=== PATIENT | female | born 1990 | race Caucasian/White ===

== ENCOUNTER → 2025-03-14 | Outpatient (CLI) | payer SELFPAY ==
--- NOTE | 2025-03-14 12:23 | US_ITS ---
PROCEDURE: OB LIMITED WITH BIOMETRICS 03/14/2025 REASON FOR EXAM: GROWTH TECHNIQUE: High resolution obstetric ultrasound performed using a 2D transducer. 3D imaging was also performed and reviewed. Standard views obtained, including biometry, anatomy survey, and Doppler studies. COMPARISON: None FINDINGS Number: 1 Position: Cephalic Placental Position: Anterior Placental Abnormalities: None Cervix to placenta distance measures 5.5 cm. DIMENSIONS: Biparietal Diameter: 8.6 cm/34 weeks 3 days +/-22 days/97th percentile Head Circumference: 31.4 cm/35 weeks 2 days +/-21 days/93rd percentile Abdominal Circumference: 32.0 cm/36 weeks 0 days +/-21 days/100 percentile Femur Length: 6.2 cm/32 weeks 1 day +/-21 days/43rd percentile ESTIMATED WEIGHT: 2511 +/-377 g ESTIMATED WEIGHT PERCENTILE (24+ weeks): 98.93% ESTIMATED GESTATIONAL AGE: Baseline: 31 weeks 6 days By Ultrasound: 34 weeks 5 days ESTIMATED DATE OF DELIVERY: Baseline: 05/10/2025 By Ultrasound: 04/20/2025 BIOPHYSICAL ASSESSMENT: Amniotic Fluid Index: 25.0 Cm (8-24 cm normal range) Heart rate: 138-140 beats per minute MATERNAL ANATOMY: Adnexa: Neither maternal ovary is successfully identified. Cervical Length (if measured): 4.1 cm US/OB Limited With Biometrics IMPRESSION: Single living intrauterine fetus, large for gestational age with estimated feta l weight in the 99th percentile. This finding could be overestimated given that additional biometry measurements are al so elevated. However, in the setting of a slightly elevated amniotic fluid index at 25 cm, findings are concerning for ma crosomia. Recommend comparison with prior exams if available, and close clinical and imaging follow-up. Reading Location: [facility]
== END | disposition home or self-care (01) ==
PROVIDERS: Referring Provider Obstetrics & Gynecology; Visit Provider Obstetrics & Gynecology
DX: O09.529 Supervision of elderly multigravida, unspecified trimester (principal); Z3A.00 Weeks of gestation of pregnancy not specified
CPT/HCPCS: 76816

== ENCOUNTER → 2025-03-22 | Outpatient (CLI) | payer SELFPAY ==
[2025-03-22 12:24] LABS: Absolute Lymphocyte Count 1.81 X10^3/uL (0.83-4.51); Absolute Neutrophil Count 3.4 X10^3/uL (2.0-7.7); Basophil# 0.01 X10^3/uL; Basophil% 0.2 % (0-1); Eosinophil# 0.02 X10^3/uL; Eosinophils% 0.4 % (0-5); Hematocrit 36.5 % (37-47); Hemoglobin 12.5 g/dL (12.0-15.0); Lymphocyte # 1.81 X10^3/ul (0.83-4.51); Lymphocyte % 32.6 % (19-41); Mean Corp Hgb Conc 34.2 g/dL (32-36); Mean Corpuscular Volume 93.4 fL (81-99); Mean Platelet Vol. 9.9 fl (6.2-12.0); Monocyte# 0.32 X10^3/uL; Monocyte% 5.8 % (0-10); NRBC Flagged by Analyzer 0 % (0-5); Neutrophil # 3.37 X10^3/uL (2.7-7.7); Neutrophil % 60.6 % (47-70); Platelet Count 201 K/mm3 (150-450); RBC Distribution Width CV 13.9 % (11.6-14.6); RBC Distribution Width SD 46.5 fl (35.1-43.9); Red Blood Count 3.91 M/mm3 (4.2-5.4); White Blood Count 5.6 K/mm3 (4.4-11.0)
[2025-03-22 12:53] LABS: HIV Nonreactive (Nonreactive); Hepatitis B Surface Antigen Nonreactive (Nonreactive); Hepatitis C Antibody Nonreactive (Nonreactive); Rubella IgG REAC (Nonreactive); Syphilis Antibodies Nonreactive (Nonreactive)
[2025-03-22 21:47] LABS: Hemoglobin A1c 4.7 % (<=5.6)
== END | disposition home or self-care (01) ==
PROVIDERS: Referring Provider Advanced Practice Midwife; Visit Provider Advanced Practice Midwife
DX: Z34.90 Encounter for supervision of normal pregnancy, unspecified, unspecified trimester (principal); Z86.32 Personal history of gestational diabetes
CPT/HCPCS: 36415; 83036; 85025; 86703; 86762; 86780; 86803; 86850; 86900; 86901; 87086; 87088; 87340

== ENCOUNTER → 2025-04-13 | Outpatient (CLI) | payer SELFPAY | END | disposition home or self-care (01) | LOC: OPUS 08:40 | PROVIDERS: Referring Provider Obstetrics & Gynecology; Visit Provider Obstetrics & Gynecology | DX: O24.419 Gestational diabetes mellitus in pregnancy, unspecified control (principal); Z3A.00 Weeks of gestation of pregnancy not specified | CPT/HCPCS: 76816; 87081 ==

== ENCOUNTER 2025-04-28 01:26 | Inpatient (IN) | payer SELFPAY ==
[2025-04-28] VITALS (69 sets, daily range): BP systolic 92–133; BP diastolic 50–75; PULSE 46–81; RESP 16; TEMP 36–37.1; O2SAT 84–100; BMI 26.2
--- OUTSIDE RECORDS SUMMARY | 2025-04-28 01:06 | XMS RPT_ITS | CCD ---
Author Organization [facility] Care Team Providers Care Fusion Juncture Grinder Name Role Phone Clint Donisterri Ann Unavailable Marlin Springer Primary Care Provider [phone] Marlin Springer Unavailable Carlos Begum Admitting Unavailable Carlos Begum Attending Unavailable PHYSICIAN, NONE Primary Care Physician Unavailab HODA Benavidez Attending U navailable MARLIN SPRINGER Primary Care Unavailabl e Care Physician, No Primary Primary Care Provider Unavailable Sandra Sorensen RN Attending Provider UnavailDr. Julieta Pool DO Attending Provider Dr. Julieta Huffman DO Referring Provider Care Physician, No Primary Referring Provider Un available Lauren Clinton CNM Attending Provider Lauren Clinton CNM Referring Provider [phone] Dr. Rhonda Fleming MD Attending Provider Ana Jimenez Attending Provider Dr. Rhonda Fleming MD Referring Provider Rhonda Fleming Referring Unavailable Care Physician, No Primary Primary Care Unava ilable Rhonda Fleming Attending Unavailable Care Physician, No Primary Referring Unava ilable Care Physician, No Primary Primary Care Unava ilable Ana Boss NP Attending Unavailable Care Physician, No Primary Referring Unava ilable Care Physician, No Primary Primary Care Unava ilable Julieta Huffman Attending UnavailLauren Garcia Attending Unavailable Care Physician, No Primary Primary Care Unava ilable Care Physician, No Primary Referring Unava ilable Sandra Sorensen Attending Unavailable Care Physician, No Primary Primary Care Unava ilable Care Physician, No Primary Referring Unava ilable Lauren Clinton Attending Unavailable Care Physician, No Primary Primary Care Unava ilable Care Physician, No Primary Referring Unava ilable Care Physician, No Primary Primary Care Unava ilable Rhonda Fleming Attending Unavailable Julieta Huffman Attending Unavailabl e Julieta Huffman Referring Unavailabl e Care Physician, No Primary Primary Care Unava ilable Lauren Clinton Attending Unavailable Lauren Clinton Referring Unavailable Care Physician, No Primary Primary Care Unava ilable Medications Current Medications Medication Drug Class(es) Dates Sig (Normalized) Sig (Original) acetaminophen 325 mg oral capsule (1 source) Start: 11-03-2019 take 1 capsule by mouth every six hours Tylenol 325 mg oral capsule Dose : 650 mg =, Oral, q6h, 0 Refill(s) Start Date: 11/03/19 Status: Ordered docosahexaenoic acid 200 mg oral capsule (9 sources) Start: 03-11-2025 Docosahexaenoic Acid ( Dha) 200 mg capsule Active mg PO March 11, 2025 12:00am ferrous sulfate 325 mg oral tablet (9 sources) Start: 03-11-2025 take 1 tablet by mouth once daily Ferrous Sulfate (Feosol) 325 mg (65 mg iron) tablet Active 325 mg PO daily March 11, 2025 12:00am ibuprofen 600 mg oral tablet (1 source) Nonsteroidal Anti-inflammatory Drug Start: 11-03-2019 Motrin Dose : 600 mg = 1 tab(s), Oral, q6h, 0 Refill(s) Start Date: 11/03/19 Status: Ordered metFORMIN hydrochloride 500 mg oral tablet (4 sources) Biguanide Start: 04-13-2025 take 1 tablet by mouth twice daily Metformin 500 mg tablet Active 500 mg PO TWICE A DAY 60 2 April 13, 2025 12:00am Multivitamins (1 source) Start: 11-02-2019 take 1 tablet by mouth twice daily Multivitamins Dose = 1 tab(s), Oral, BID, 0 Refill(s) Start Date: 11/02/19 Status: Ordered Completed/Discontinued Medications Medication Drug Class(es) Dates Sig (Normalized) Sig (Original) omeprazole 40 mg delayed release oral capsule (2 sources) Proton Pump Inhibitor Start: 12-15-2017 End: 12-15-2018 take 1 capsule by mouth once daily omeprazole (PRILOSEC) 40 MG capsule Indications: Laryngeal pachyderma , Gastroesophageal reflux disease, esophagitis presence not specified Take 1 (one) capsule (40 mg total) by mouth daily. 30 capsule 11 12/15/2017 11/19/2018 Discontinued raNITIdine 300 mg oral tablet (2 sources) Histamine-2 Receptor Antagonist Start: 12-15-2017 End: 12-15-2018 take 1 tablet by mouth once daily ranitidine (ZANTAC) 300 MG tablet Indications: Laryngeal pachyderma , Gastroesophageal reflux disease, esophagitis presence not specified Take 1 (one) tablet (300 mg total) by mouth nightly. 30 tablet 11 12/15/2017 11/19/2018 Discontinued Problems Problem Classification Problem Date Documented Date Episodic/Chronic Anal and rectal conditions (3 sources) Rectal polyp; Translations: [Anal polyp] Episodic Diabetes or abnormal glucose tolerance complicating ; childbirth; or the puerperium (20 sources) History of gestational diabetes mellitus; Translations: [Personal history of gestational diabetes] Onset: 04-21-2025 03-14-2025 Episodic Comment on above: diet controlled. con tinue to monitor growth US 36 weeks diet controlled. con tinue to monitor growth US 36 weeks. metformin started 04/13/25- patient declines to come in twice a week for nsts. will do only once a week Other complications of ; puerperium affecting management of mother (20 sources) Large for gestation age fetus 03-15-2025 Episodic Comment on above: EFW 98%, AC 100% 32 wk Other complications of (1 source) Supervision of elderly multigravida, unspecified trimester; Translations: [Supervision of elderly multigravida, unspecified trimester] Onset: 03-17-2025 Episodic Other and delivery including normal (20 sources) ; Translations: [Normal ] Onset: 07-09-2021 11-06-2021 Episodic Comment on above: , CALEB 05/10/25, PC: Sarah Sal Andrea, Emily & Sade, : Reynaldo Burger [Co-Care w/Malena Coop er, RON @ 31wks]No genetic/carrier testing done PRR ([facility]ing on chan soon[facility]) , CALEB 05/10/25, PC: Sarah Sal, Dominic, Elizabeth & Sade, : Reynaldo uBrger Neg gbs PRR (waiting on chan soon-[facility]) , CALEB 05/10/25, PC: Sarah Sal Andrea, Elizabeth & Sade, : Reynaldo Burger Polyhydramnios and other problems of amniotic cavity (20 sources) Polyhydramnios; Translations: [Polyhydramnios, unspecified trimester, not applicable or unspecified] Onset: 04-22-2025 03-22-2025 Episodic Comment on above: WEI 25 WEI 25 weekly nsts u ntil delivery, deliver 39 weeks Residual codes; unclassified (9 sources) History of eye AND/OR adnexa surgery; Translations: [Other specified postprocedural states] 03-11-2025 Episodic Residual codes; unclassified (1 source) 37 weeks gestation of ; Translations: [37 weeks gestation of ] Onset: 04-22-2025 Episodic Residual codes; unclassified (1 source) 34 weeks gestation of ; Translations: [34 weeks gestation of ] Onset: 04-01-2025 Episodic Residual codes; unclassified (1 source) 33 weeks gestation of ; Translations: [33 weeks gestation of ] Onset: 03-22-2025 Episodic Results Test Name Value Interpretation Reference Range Facility Laboratory - Chemistry and C hemistry - challengeOrdered By: Lauren Clinton on 04-22-2025 Glucose Ql (U) Negative [facility] Laboratory - UrinalysisOrder ed By: Lauren Clinton on 04-22-2025 Protein Ql (U) Negative [facility] Pressure Controller Office Visit Reporton 04-22-2025 Pressure Controller Office Visit Report [facility] [address] [place] [address], [address] [place] [address] OFFICE VISIT Date of Service: 04/22/25 MR#: [id number] Acct: [id number] Name: LAURIE RIGGS Rep #: [id number] : 1990 Provider: VICKY Sanders ams Age/Sex: 35/F [place] [facility] [place] Status: Signed Intake Vital Signs 04/01/25 16:00 04/13/25 13:00 04/22/25 13:38 Height 5 ft 3 in 5 ft 3 in 5 ft 3 in Weight: 147 lb 6 oz 149 lb 2 oz BMI 26.1 26.4 BP 107/65 123/67 H Intake Visit Reasons: 37wk ob/nst Chief Complaint: 37wk ob/nst Gas Meter Checker Required: No Is patient in pain?: No Allergies No Known Allergies Allergy (Verified 04/22/25 13:36) Medications ???Medication ???Instructions ???Recorded ???Confirmed ???Type docosahexaenoic acid 200 mg mg PO 03/11/25 04/22/25 History capsule ( DHA) ferrous sulfate 325 mg (65 mg 325 mg PO QDAY 03/11/25 04/22/25 H istory iron) tablet (Feosol) metformin 500 mg tablet 500 mg PO BID #60 tabs 04/13/25 Rx Last Menstrual Period: 08/03/24 : No PFSH PFSH Surgical History H/O eye surgery History of tonsillectomy and adenoidectomy Social History adopted: No household members: spouse and children housing: house number of children: 5 current occupation: [employer] current occupational exposures/hazards: No pets and animals: Yes pets and animals: dog(s) and farm animals history of recent travel: No sexually active: No Smoking Status: Never smoker second hand exposure: No alcohol intake: never substance use type: does not use well-balanced diet: daily or most days caffeine: No eating out: rarely or never during the past year weight has: remained stable what type of physical activity do you participate in: walking frequency: 5-6 times per week duration: 45-60 minutes/day milady/sikh: Presybeterian seatbelt use: sometimes do you feel safe at home: Yes additional social history: : Reynaldo Burger - Jhon History 6 Elective abortions Hx Para 5 Spontaneous abortions 0 Hx # Term Pregnancies 5 Ectopic pregnancies Hx # Pregnancies Multiple births # of living children 5 Past Pregnancies Del. Date Name GA/Weeks Outcome Route Bth Weight Gen Labor Lgth Anesthesia Del Locatn Provider FOB 10/03/12 Doron 40 live - full term 8lbs 6oz Male none Home Reynaldo Burger 12/20/13 Sarah 40 live - full term 7lbs 7oz Female none Home Reynaldo Burger 12/15/16 Dominic 40 live - full term 8lbs 8oz Female none Tino Or yaakov Burger 11/02/19 Elizabeth 40 live - full term 7lbs 7oz Female none Tino Or damaso Burger 04/04/22 Sade 40 live - full term 7lbs 14oz Female none Home Reynaldo Burger Delivery Date: 11/02/19 Last Updated by: Sandra Sorensen, preventive medicine physician instructed her to watch her BS HPI 37wk ob/nst Details: LAURIE RIGGS is a 35 year old who presents for routine OB visit. OB Visit CALEB Calculator Estimated Delivery Date Method Current WG Current Estimate 05/10/25 LMP (Certain) 37w 3d Other Estimates 05/10/25 Manual 37w 3d Expected Delivery Route/Plan Labor Preferences- CB/BF classes: [] labor support person: [] labor intervention preferences: [] pain management options preferred: [] cut cord/dad catch: [] : [] PP control planned: [] discussed possible routes of delivery and associated risks: [] special requests: [] Specific Issue/Plans Covid status: [] Flu vaccine: [] Tdap vaccine: [] Rhogam: [] LARC form signed: [] Problem list reviewed and updated with the most current plan of care details and appropriate orders placed. Relevant counseling for the gestational age provided. Continue routine care and follow up unless otherwise noted in visit notes/problem list details Initial Weight: Not Recorded Date -???-???-???-???-???-? ??-???-???-???-???-??? -???- EGA Weight BP Urine Prot -???-???-???-???-???-? ??-???-???-???-???-??? -???- Glucose FHR FuHt Pres Dilation -???-???-???-???-???-? ??-???-???-???-???-??? -???- Effaced St Visit Note 03/22/25 -???-???-???-???-???-? ??-???-???-???-???-??? -???- 33w 0d 153 lb 4 oz 115/69 Negative -???-???-???-???-???-? ??-???-???-???-???-??? -???- Negative 140 36 -???-???-???-???-???-? ??-???-???-???-???-??? -???- KW- Transfer of care from Malena Wiley. Growth US done and EFW 100%. Had regular menses and was certain of LMP-did not have an early US. NOB labs today. KW- Transfer of care from Malena Wade gudino. Growth US done and EFW 100%. Had regular menses and was certain of LMP-did not have an early US. NOB labs today. Has been trac (more content not included)... Normal [facility] Rule out Beta Strep (Grp. B) on 04-15-2025 JOSE Group B Beta Streptococcus is not isolated. Normal [facility] Comment on above: Performed By: #### M [id number] ####[facility] [id number] [place], [place], [id number] Laboratory - Chemistry and C hemistry - challengeOrdered By: Julieta Chavez on 04-13-2025 Glucose Ql (U) Negative [facility] Laboratory - UrinalysisOrder ed By: Julieta Chavez on 04-13-2025 Protein Ql (U) Negative [facility] OB Limited With Biometricson 04-13-2025 OB Limited With Biometrics [facility] [address] [place], [place] [id number] OB Limited With Biometrics MR#: [id number] Acct: [id number] Name: LAURIE RIGGS Rep #: [id number] : 1990 F 35 From: Satinder valdez MD PCP: Care Physician,No Primary Status: REG CLI Study: OB Limited With Biometrics Date of Exam: 04/13 Exam# [id number] Ordering Dr: Rhonda Fleming PROCEDURE: OB LIMITED WITH BIOMETRICS 04/13/2025 REASON FOR EXAM: GROWTH TECHNIQUE: OB LIMITED WITH BIOMETRICS COMPARISON: Prior study dated March 14, 2025. FINDINGS LMP: August 03, 2024. Number: 1 Position: Vertex Placental Position: Anterior and not low-lying. Placental Abnormalities: No evidence of previa. DIMENSIONS: Biparietal Diameter: 8.92 cm: 36 weeks and 1 day: 58 percentile/ Head Circumference: 32.51 cm: 36 weeks and 6 days: 36 percentile/ Abdominal Circumference: 33.82 cm: 37 weeks and 5 days: 93rd percentile/ Femur Length: 7.11 cm: 36 weeks and 3 days: 53 percentile/ ESTIMATED WEIGHT: 3152 g plus/-473 g ESTIMATED WEIGHT PERCENTILE (24+ weeks): 79 ESTIMATED GESTATIONAL AGE: Baseline: 36 weeks and 1 day By Ultrasound: 37 weeks and 1 day ESTIMATED DATE OF DELIVERY: Baseline: May 10, 2025 By Ultrasound: May 03, 2025 BIOPHYSICAL ASSESSMENT: Amniotic Fluid Volume: 6 cm Amniotic Fluid Index: 21.2 (8-24 cm normal range) Cardiac Motion: 147 beats per minute (average) Trunk and Limb Motion: Present. MATERNAL ANATOMY: Adnexa: Neither maternal ovary is successfully identified. US/OB Limited With Biometrics IMPRESSION: Single live intrauterine gestation with a mean gestational age of 37 weeks and 1 day. Reading Location: [place] [address] CC: Dr. Rhonda Fleming MD; No Primary Care Physician Hook Up: Signed Normal [facility] Pressure Controller Office Visit Reporton 04-13-2025 Pressure Controller Office Visit Report [facility] [address], [address] [place] [address] OFFICE VISIT Date of Service: 04/13/25 MR#: [id number] Acct: [id number] Name: LAURIE RIGGS Rep #: [id number] : 1990 Provider: Dr. Julieta Barrett DO Age/Sex: 35/F [place] [facility] Status: Signed Intake Vital Signs 04/01/25 16:00 04/07/25 13:40 04/13/25 13:00 Height 5 ft 3 in 5 ft 3 in 5 ft 3 in Weight: 147 lb 6 oz BMI 26.1 BP 107/65 Intake Visit Reasons: 36wk ob/nst Gas Meter Checker Required: No Is patient in pain?: No Allergies No Known Allergies Allergy (Verified 04/13/25 13:01) Medications ???Medication ???Instructions ???Recorded ???Confirmed ???Type docosahexaenoic acid 200 mg mg PO 03/11/25 04/13/25 History capsule ( DHA) ferrous sulfate 325 mg (65 mg 325 mg PO QDAY 03/11/25 04/13/25 H istory iron) tablet (Feosol) metformin 500 mg tablet 500 mg PO BID #60 tabs 04/13/25 Rx Last Menstrual Period: 08/03/24 Zika: Zika virus screening: Negative : No PFSH PFSH Surgical History H/O eye surgery History of tonsillectomy and adenoidectomy Social History adopted: No household members: spouse and children housing: house number of children: 5 current occupation: [employer] current occupational exposures/hazards: No pets and animals: Yes pets and animals: dog(s) and farm animals history of recent travel: No sexually active: No Smoking Status: Never smoker second hand exposure: No alcohol intake: never substance use type: does not use well-balanced diet: daily or most days caffeine: No eating out: rarely or never during the past year weight has: remained stable what type of physical activity do you participate in: walking frequency: 5-6 times per week duration: 45-60 minutes/day milady/sikh: Presybeterian seatbelt use: sometimes do you feel safe at home: Yes additional social history: : Reynaldo Burger - Farm History 6 Elective abortions Hx Para 5 Spontaneous abortions 0 Hx # Term Pregnancies 5 Ectopic pregnancies Hx # Pregnancies Multiple births # of living children 5 Past Pregnancies Del. Date Name GA/Weeks Outcome Route Bth Weight Gen Labor Lgth Anesthesia Del Locatn Provider FOB 10/03/12 Doron 40 live - full term 8lbs 6oz Male none Home Reynaldo Burger 12/20/13 Sarah 40 live - full term 7lbs 7oz Female none Home Reynaldo Burger 12/15/16 Dominic 40 live - full term 8lbs 8oz Female none Tino Or rville Reynaldo Burger 11/02/19 Elizabeth 40 live - full term 7lbs 7oz Female none Tino Or rville Reynaldo Burger 04/04/22 Sade 40 live - full term 7lbs 14oz Female none Home Reynaldo Burger Delivery Date: 11/02/19 Last Updated by: Sandra Sorensen preventive medicine physician instructed her to watch her BS HPI 36wk ob/nst Details: LAURIE RIGGS is a 35 year old who presents for routine OB visit. OB Visit CALEB Calculator Estimated Delivery Date Method Current WG Current Estimate 05/10/25 LMP (Certain) 36w 1d Other Estimates 05/10/25 Manual 36w 1d Expected Delivery Route/Plan Labor Preferences- CB/BF classes: [] labor support person: [] labor intervention preferences: [] pain management options preferred: [] cut cord/dad catch: [] : [] PP control planned: [] discussed possible routes of delivery and associated risks: [] special requests: [] Specific Issue/Plans Covid status: [] Flu vaccine: [] Tdap vaccine: [] Rhogam: [] LARC form signed: [] Problem list reviewed and updated with the most current plan of care details and appropriate orders placed. Relevant counseling for the gestational age provided. Continue routine care and follow up unless otherwise noted in visit notes/problem list details Initial Weight: Not Recorded Date -???-???-???-???-???-? ??-???-???-???-???-??? -???- EGA Weight BP Urine Prot -???-???-???-???-???-? ??-???-???-???-???-??? -???- Glucose FHR FuHt Pres Dilation -???-???-???-???-???-? ??-???-???-???-???-??? -???- Effaced St Visit Note 03/22/25 -???-???-???-???-???-? ??-???-???-???-???-??? -???- 33w 0d 153 lb 4 oz 115/69 Negative -???-???-???-???-???-? ??-???-???-???-???-??? -???- Negative 140 36 -???-???-???-???-???-? ??-???-???-???-???-??? -???- KW- Transfer of care from Malena Wiley. Growth US done and EFW 100%. Had regular menses and was certain of LMP-did not have an early US. NOB labs today. KW- Transfer of care from Malena Wade gudino. Growth US done and EFW 100%. Had regular menses and was certain of LMP-did not have an early US. NOB labs today. Has been tr (more content not included)... Normal [facility] Screening beta-hemolytic Str eptococcus cultureOrdered By: Julieta Chavez on 04-13-2025 Beta-hemolytic Streptococcus culture Group B Beta Streptococcus is not isolated. [facility] Laboratory - Chemistry and C hemistry - challengeOrdered By: Ana Boss on 04-07-2025 Glucose Ql (U) Negative [facility] Laboratory - UrinalysisOrder ed By: Ana Boss on 04-07-2025 Protein Ql (U) Negative [facility] Pressure Controller Office Visit Reporton 04-07-2025 Pressure Controller Office Visit Report [facility] [address], [address] [place] [address] OFFICE VISIT Date of Service: 04/07/25 MR#: [id number] Acct: [id number] Name: LAURIE RIGGS Rep #: [id number] : 1990 Provider: TSERING valentin Age/Sex: 35/F Location[place] [facility] [place] Status: Signed Intake Vital Signs 04/01/25 16:00 04/07/25 13:40 04/07/25 13:40 Height 5 ft 3 in 5 ft 3 in 5 ft 3 in Weight: 149 lb 2 oz 149 lb 4 oz BMI 26.4 26.4 BP 123/71 H 115/66 Intake Visit Reasons: 35wk nst only Gas Meter Checker Required: No Is patient in pain?: No Allergies No Known Allergies Allergy (Verified 04/07/25 13:40) Medications ???Medication ???Instructions ???Recorded ???Confirmed ???Type docosahexaenoic acid 200 mg mg PO 03/11/25 04/07/25 History capsule ( DHA) ferrous sulfate 325 mg (65 mg 325 mg PO QDAY 03/11/25 04/07/25 H istory iron) tablet (Feosol) Last Menstrual Period: 08/03/24 Zika: Zika virus screening: Negative : No PFSH PFSH Surgical History H/O eye surgery History of tonsillectomy and adenoidectomy Social History adopted: No household members: spouse and children housing: house number of children: 5 current occupation: [employer] current occupational exposures/hazards: No pets and animals: Yes pets and animals: dog(s) and farm animals history of recent travel: No sexually active: No Smoking Status: Never smoker second hand exposure: No alcohol intake: never substance use type: does not use well-balanced diet: daily or most days caffeine: No eating out: rarely or never during the past year weight has: remained stable what type of physical activity do you participate in: walking frequency: 5-6 times per week duration: 45-60 minutes/day milady/sikh: Presybeterian seatbelt use: sometimes do you feel safe at home: Yes additional social history: : Reynaldo Burger - Jhon History 6 Elective abortions Hx Para 5 Spontaneous abortions 0 Hx # Term Pregnancies 5 Ectopic pregnancies Hx # Pregnancies Multiple births # of living children 5 Past Pregnancies Del. Date Name GA/Weeks Outcome Route Bth Weight Gen Labor Lgth Anesthesia Del Locatn Provider FOB 10/03/12 Doron 40 live - full term 8lbs 6oz Male none Home Reynaldo Burger 12/20/13 Sarah 40 live - full term 7lbs 7oz Female none Home Reynaldo Burger 12/15/16 Dominic 40 live - full term 8lbs 8oz Female none Tino Or damaso Burger 11/02/19 Elizabeth 40 live - full term 7lbs 7oz Female none Tino Or rville Reynaldo Burger 04/04/22 Sade 40 live - full term 7lbs 14oz Female none Home Reynaldo Burger Delivery Date: 11/02/19 Last Updated by: Sandra Sorensen preventive medicine physician instructed her to watch her BS HPI 35wk nst only Details: LAURIE RIGGS is a 35 year old who presents for routine OB visit. OB Visit CALEB Calculator Estimated Delivery Date Method Current WG Current Estimate 05/10/25 LMP (Certain) 35w 2d Other Estimates 05/10/25 Manual 35w 2d Expected Delivery Route/Plan Labor Preferences- CB/BF classes: [] labor support person: [] labor intervention preferences: [] pain management options preferred: [] cut cord/dad catch: [] : [] PP control planned: [] discussed possible routes of delivery and associated risks: [] special requests: [] Specific Issue/Plans Covid status: [] Flu vaccine: [] Tdap vaccine: [] Rhogam: [] LARC form signed: [] Problem list reviewed and updated with the most current plan of care details and appropriate orders placed. Relevant counseling for the gestational age provided. Continue routine care and follow up unless otherwise noted in visit notes/problem list details Initial Weight: Not Recorded Date -???-???-???-???-???-? ??-???-???-???-???-??? -???- EGA Weight BP Urine Prot -???-???-???-???-???-? ??-???-???-???-???-??? -???- Glucose FHR FuHt Pres Dilation -???-???-???-???-???-? ??-???-???-???-???-??? -???- Effaced St Visit Note 03/22/25 -???-???-???-???-???-? ??-???-???-???-???-??? -???- 33w 0d 153 lb 4 oz 115/69 Negative -???-???-???-???-???-? ??-???-???-???-???-??? -???- Negative 140 36 -???-???-???-???-???-? ??-???-???-???-???-??? -???- KW- Transfer of care from Malena Saurabh. Growth US done and EFW 100%. Had regular menses and was certain of LMP-did not have an early US. NOB labs today. KW- Transfer of care from Malena gudino. Growth US done and EFW 100%. Had regular menses and was certain of LMP-did not have an early US. NOB labs today. Has been tracking BS for last 2 months and has had elevated num (more content not included)... Normal [facility] Laboratory - Chemistry and C hemistry - challengeOrdered By: Rhonda Fleming on 04-01-2025 Glucose Ql (U) Negative [facility] Laboratory - UrinalysisOrder ed By: Rhonda Fleming on 04-01-2025 Protein Ql (U) Negative [facility] Pressure Controller Office Visit Reporton 04-01-2025 Pressure Controller Office Visit Report [facility] [address], [address] [place] [address] OFFICE VISIT Date of Service: 04/01/25 MR#: [id number] Acct: [id number] Name: LAURIE RIGGS Rep #: [id number] : 1990 Provider: Dr. Rhonda bailey MD Age/Sex: 35/F [place] [facility] [place] Status: Signed Intake Vital Signs 03/22/25 11:00 04/01/25 16:00 Height 5 ft 3 in 5 ft 3 in Weight: 149 lb 2 oz BMI 26.4 BP 123/71 H Intake Visit Reasons: 33wk ob per KW *co care Chief Complaint: 33 Week OB Gas Meter Checker Required: No Is patient in pain?: No Allergies No Known Allergies Allergy (Unverified 04/01/25 16:00) Medications ???Medication ???Instructions ???Recorded ???Confirmed ???Type docosahexaenoic acid 200 mg mg PO 03/11/25 04/01/25 History capsule ( DHA) ferrous sulfate 325 mg (65 mg 325 mg PO QDAY 03/11/25 04/01/25 H istory iron) tablet (Feosol) Last Menstrual Period: 08/03/24 Zika: Zika virus screening: Negative : No PFSH PFSH Surgical History H/O eye surgery History of tonsillectomy and adenoidectomy Social History adopted: No household members: spouse and children housing: house number of children: 5 current occupation: [employer] current occupational exposures/hazards: No pets and animals: Yes pets and animals: dog(s) and farm animals history of recent travel: No sexually active: No Smoking Status: Never smoker second hand exposure: No alcohol intake: never substance use type: does not use well-balanced diet: daily or most days caffeine: No eating out: rarely or never during the past year weight has: remained stable what type of physical activity do you participate in: walking frequency: 5-6 times per week duration: 45-60 minutes/day milady/sikh: Presybeterian seatbelt use: sometimes do you feel safe at home: Yes additional social history: : Reynaldo Burger - Farm History 6 Elective abortions Hx Para 5 Spontaneous abortions 0 Hx # Term Pregnancies 5 Ectopic pregnancies Hx # Pregnancies Multiple births # of living children 5 Past Pregnancies Del. Date Name GA/Weeks Outcome Route Bth Weight Gen Labor Lgth Anesthesia Del Locatn Provider FOB 10/03/12 Doron 40 live - full term 8lbs 6oz Male none Home Reynaldo Burger 12/20/13 Sarah 40 live - full term 7lbs 7oz Female none Home Reynaldo Burger 12/15/16 Dominic 40 live - full term 8lbs 8oz Female none [facility] Reynaldo Burger 11/02/19 Elizabeth 40 live - full term 7lbs 7oz Female none [place] Reynaldo Burger 04/04/22 Sade 40 live - full term 7lbs 14oz Female none Home Reynaldo Burger Delivery Date: 11/02/19 Last Updated by: Sandra Sorensen preventive medicine physician instructed her to watch her BS HPI 33wk ob per KW *co care Details: LAURIE RIGGS is a 35 year old who presents for routine OB visit. pos preg test sep 07 OB Visit CALEB Calculator Estimated Delivery Date Method Current WG Current Estimate 05/10/25 LMP (Certain) 34w 3d Other Estimates 05/10/25 Manual 34w 3d Expected Delivery Route/Plan Labor Preferences- CB/BF classes: [] labor support person: [] labor intervention preferences: [] pain management options preferred: [] cut cord/dad catch: [] : [] PP control planned: [] discussed possible routes of delivery and associated risks: [] special requests: [] Specific Issue/Plans Covid status: [] Flu vaccine: [] Tdap vaccine: [] Rhogam: [] LARC form signed: [] Problem list reviewed and updated with the most current plan of care details and appropriate orders placed. Relevant counseling for the gestational age provided. Continue routine care and follow up unless otherwise noted in visit notes/problem list details Initial Weight: Not Recorded Date -???-???-???-???-???-? ??-???-???-???-???-??? -???- EGA Weight BP Urine Prot -???-???-???-???-???-? ??-???-???-???-???-??? -???- Glucose FHR FuHt Pres Dilation -???-???-???-???-???-? ??-???-???-???-???-??? -???- Effaced St Visit Note 03/22/25 -???-???-???-???-???-? ??-???-???-???-???-??? -???- 33w 0d 153 lb 4 oz 115/69 Negative -???-???-???-???-???-? ??-???-???-???-???-??? -???- Negative 140 36 -???-???-???-???-???-? ??-???-???-???-???-??? -???- KW- Transfer of care from Malena Wiley. Growth US done and EFW 100%. Had regular menses and was certain of LMP-did not have an early US. NOB labs today. KW- Transfer of care from Malena Wade gudino. Growth US done and EFW 100%. Had regular menses and was certain of LMP-did not have an early US. NOB labs today. Has been tracking BS for last 2 mo (more content not included)... Normal [facility] Urine Cultureon 03-24-2025 URC Below infection leandro l. Mixed Gram Positive Organisms Section Count 1000-10,000 MIXC Mixed contaminants. Submit a new specimen if indicated. Normal [facility] Comment on above: Performed By: #### M 100.2200 ####[facility] [id number] [place], [address] Absolute lymphocyte countOrd ered By: Lauren Clinton on 03-22-2025 Lymphocytes Auto (Unsp spec) [#/Vol] 1.81 10*3/uL 0.83-4.51 [facility] Absolute neutrophil countOrd ered By: Lauren Clinton on 03-22-2025 Neutrophils (Bld) [#/Vol] 3.4 10*3/uL 2.0-7.7 [facility] Automated lymphocyte count a s percentage of total leukocytesOrdered By: Lauren Clinton on 03-22-2025 Lymphocytes/100 WBC Auto (Unsp spec) 32.6 % 19-41 [facility] Basophil percentageOrdered B y: Lauren Clinton on 03-22-2025 Basophils/100 WBC (Bld) 0.2 % 0-1 [facility] CBC W/Diff, Automatedon 03-13 0-2024 Absolute Lymph 1.81 X10 3/uL Normal 0.83-4.51 [facility] Comment on above: Performed By: #### L 100.0100, L509.4006, L509.8002, BTS, L3890.6301, L501.9985, L3890.6102, L3890.6006 #### [facility] [address] [place], [address] Absolute Neut 3.4 X10 3/uL Normal 2.0-7.7 [facility] Comment on above: Performed By: #### L 100.0100, L509.4006, L509.8002, BTS, L3890.6301, L501.9985, L3890.6102, L3890.6006 #### [facility] [address] [place], [address] Basophils/100 WBC (Bld) 0.2 % Normal 0-1 [facility] Comment on above: Performed By: #### L 100.0100, L509.4006, L509.8002, BTS, L3890.6301, L501.9985, L3890.6102, L3890.6006 #### [facility] [address] [place], [address] Eosinophils/100 WBC (Bld) 0.4 % Normal 0-5 [facility] Comment on above: Performed By: #### L 100.0100, L509.4006, L509.8002, BTS, L3890.6301, L501.9985, L3890.6102, L3890.6006 #### [facility] [address] [place], [address] Erythrocyte distribution width (RBC) [Ratio] 13.9 % Normal 11.6-14.6 [facility] Comment on above: Performed By: #### L 100.0100, L509.4006, L509.8002, BTS, L3890.6301, L501.9985, L3890.6102, L3890.6006 #### [facility] [address] [place], [address] Hematocrit (Bld) [Volume fraction] 36.5 % Low 37-47 [facility] Comment on above: Performed By: #### L 100.0100, L509.4006, L509.8002, BTS, L3890.6301, L501.9985, L3890.6102, L3890.6006 #### [facility] [address] [place], [address] Hemoglobin (Bld) [Mass/Vol] 12.5 g/dL Normal 12.0-15.0 [facility] Comment on above: Performed By: #### L 100.0100, L509.4006, L509.8002, BTS, L3890.6301, L501.9985, L3890.6102, L3890.6006 #### [facility] [address] [place], [address] IG% 0.400 Normal 0.0-0.9 [facility] Comment on above: Result Comment: IG% - Immature Granulocytes (promyelocytes, myelocytes and metamyelocytes) > 1% indicates that a LEFT SHIFT is Present. Performed By: #### L 100.0100, L509.4006, L509.8002, BTS, L3890.6301, L501.9985, L3890.6102, L3890.6006 #### [facility] [address] [place], [address] Lymphocytes/100 WBC (Bld) 32.6 % Normal 19-41 [facility] Comment on above: Performed By: #### L 100.0100, L509.4006, L509.8002, BTS, L3890.6301, L501.9985, L3890.6102, L3890.6006 #### [facility] [address] [facility] [place], [address] MCH (RBC) [Entitic mass] 32.0 pg Normal 27.0-32.0 [facility] Comment on above: Performed By: #### L 100.0100, L509.4006, L509.8002, BTS, L3890.6301, L501.9985, L3890.6102, L3890.6006 #### [facility] [address] [facility] [place], [address] MCHC (RBC) [Mass/Vol] 34.2 g/dL Normal 32-36 [facility] Comment on above: Performed By: #### L 100.0100, L509.4006, L509.8002, BTS, L3890.6301, L501.9985, L3890.6102, L3890.6006 #### [facility] [address] [place], [address] MCV (RBC) [Entitic vol] 93.4 fL Normal 81-99 [facility] Comment on above: Performed By: #### L 100.0100, L509.4006, L509.8002, BTS, L3890.6301, L501.9985, L3890.6102, L3890.6006 #### [facility] [address] [place], [address] Monocytes/100 WBC (Bld) 5.8 % Normal 0-10 [facility] Comment on above: Performed By: #### L 100.0100, L509.4006, L509.8002, BTS, L3890.6301, L501.9985, L3890.6102, L3890.6006 #### [facility] [address] [place], [address] Neutrophils/100 WBC (Bld) 60.6 % Normal 47-70 [facility] Comment on above: Performed By: #### L 100.0100, L509.4006, L509.8002, BTS, L3890.6301, L501.9985, L3890.6102, L3890.6006 #### [facility] [address] [place], [address] Nucleated RBC (Bld) [#/Vol] 0 10*3/uL Normal 0-5 [facility] Comment on above: Performed By: #### L 100.0100, L509.4006, L509.8002, BTS, L3890.6301, L501.9985, L3890.6102, L3890.6006 #### [facility] [address] [place], [address] Platelet mean volume (Bld) [Entitic vol] 9.9 fL Normal 6.2-12.0 [facility] Comment on above: Performed By: #### L 100.0100, L509.4006, L509.8002, BTS, L3890.6301, L501.9985, L3890.6102, L3890.6006 #### [facility] [address] [place], [address] Platelets (Bld) [#/Vol] 201 10*3/uL Normal 150-450 [facility] Comment on above: Performed By: #### L 100.0100, L509.4006, L509.8002, BTS, L3890.6301, L501.9985, L3890.6102, L3890.6006 #### [facility] [address] [place], [address] RBC (Bld) [#/Vol] 3.91 10*6/uL Low 4.2-5.4 [facility] Comment on above: Performed By: #### L 100.0100, L509.4006, L509.8002, BTS, L3890.6301, L501.9985, L3890.6102, L3890.6006 #### [facility] [address] [place], [address] RDW SD 46.5 fl High 35.1-43.9 [facility] Comment on above: Performed By: #### L 100.0100, L509.4006, L509.8002, BTS, L3890.6301, L501.9985, L3890.6102, L3890.6006 #### [facility] [address] [place], [address] WBC (Bld) [#/Vol] 5.6 10*3/uL Normal 4.4-11.0 [facility] Comment on above: Performed By: #### L 100.0100, L509.4006, L509.8002, BTS, L3890.6301, L501.9985, L3890.6102, L3890.6006 #### [facility] [address] [place], [address] Eosinophil percentageOrdered By: Lauren Clinton on 03-22-2025 Eosinophils/100 WBC (Bld) 0.4 % 0-5 [facility] Erythrocyte distribution wid th ratioOrdered By: Lauren Clinton on 03-22-2025 Erythrocyte distribution width (RBC) [Ratio] 13.9 % 11.6-14.6 [facility] Erythrocyte distribution wid th standard deviationOrdered By: Lauren Clinton on 03-22-2025 Erythrocyte distribution width (RBC) [Ratio] 46.5 fl High 35.1-43.9 [facility] HIVon 03-22-2025 HIV Non-Reactive Normal Nonreactive [facility] Comment on above: Result Comment: Non- Reactive Reactive Repeatedly reactive samples must be confirmed according to CDC recommended confirmatory algorithms. The subresults for either HIVAG or AHIV can be used as an aid in the selection of the confirmation algorithm for reactive samples. Send out specimens with Reactive results to [facility] for confirmation. Order the HIV antibody detection and differentiation: lc#[id number] Performed By: #### L 100.0100, L509.4006, L509.8002, BTS, L3890.6301, L501.9985, L3890.6102, L3890.6006 #### [facility] [address] [place], [place], [id number] Hematocrit Auto (Bld) [Volum e fraction]Ordered By: Lauren Clinton on 03-22-2025 Hematocrit (Bld) [Volume fraction] 36.5 % Low 37-47 [facility] Hemoglobin A1con 03-22-2025 HbA1c (Bld) [Mass fraction] 4.7 % Normal <=5.6 [facility] Comment on above: Result Comment: Norm al < 5.7 % Prediabetic 5.7 - 6.4 % Diabetic >or= 6.5 % Please note range changes. Performed By: #### L 100.0100, L509.4006, L509.8002, BTS, L3890.6301, L501.9985, L3890.6102, L3890.6006 ####[facility] [address] [place], [place], [id number] Hemoglobin A1c percentageOrd ered By: Lauren Clinton on 03-22-2025 HbA1c (Bld) [Mass fraction] 4.7 % <5.7 [facility] Comment on above: Normal < 5.7 % Predi abetic 5.7 - 6.4 % Diabetic >or= 6.5 % Please note range changes. Hemoglobin measurementOrdere d By: Lauren Clitnon on 03-22-2025 Hemoglobin (Bld) [Mass/Vol] 12.5 g/dL 12.0-15.0 [facility] Hepatitis C Antibodyon 03-22 Hepatitis C Ab Non-Reactive Normal Nonreactive [facility] Comment on above: Result Comment: Reac tive: Presumptive evidence of antibodies to HCV. Follow CDC recommendations for supplemental testing. Non-Reactive: Antibodies to HCV were not detected; does not exclude the possibility of exposure to HCV Reactive Results are presumptive evidence of antibodies to HCV. Follow CDC recommendations for supplemental testing. Order confirmation testing: HCV Quant by PCR testing - HCVPCR #[id number] Non Reactive: < 0.8 Equivocal: >/= 0.8 to < 1.0 Reactive: >/= 1.0 The [facility] requires that a reactive/equivocal HCV antibody result be sent out for confirmation. HCV Quant by PCR testing. Performed By: #### L 100.0100, L509.4006, L509.8002, BTS, L3890.6301, L501.9985, L3890.6102, L3890.6006 ####[facility] [address] [place], [address] Immature granulocytes/100 WB C Auto (Bld)Ordered By: Lauren Clinton on 03-22-2025 Immature granulocytes/100 WBC (Bld) 0.400 % 0.0-0.9 [facility] Comment on above: IG% - Immature Granu locytes (promyelocytes, myelocytes and metamyelocytes) > 1% indicates that a LEFT SHIFT is Present. L3890.6102on 03-22-2025 HEP B Surf Ag Non-Reactive Normal Nonreactive [facility] Comment on above: Result Comment: Reac tive: Presumptive evidence of HBV. Repeatedly reactive samples must be confirmed using a neutralization test ([employer] HBsAg Confirmatory Test) Non-Reactive: HBsAg not detected; does not exclude the possibility of exposure to HBV Performed By: #### L 100.0100, L509.4006, L509.8002, BTS, L3890.6301, L501.9985, L3890.6102, L3890.6006 ####[facility] [address] [facility] [place], [address] L509.4006on 03-22-2025 Rubella IgG REAC Normal Nonreactive [facility] Comment on above: Result Comment: Anti body Result: Interpretation Non-Reactive: Non-Immune Reactive: Immune The following results were obtained with the [employer] Rubella IgG assay. Results from assays of other manufacturers cannot be used interchangeably. Performed By: #### L 100.0100, L509.4006, L509.8002, BTS, L3890.6301, L501.9985, L3890.6102, L3890.6006 #### [facility] [address] [facility] [place], [place], [id number] Laboratory - Chemistry and C hemistry - challengeOrdered By: Lauren Clinton on 03-22-2025 Glucose Ql (U) Negative [facility] Laboratory - Microbiology an d Antimicrobial susceptibilityOrdered By: Lauren Clinton on 03-22-2025 HBV surface Ag Ql (S) Non-Reactive Nonreactive [facility] Comment on above: Reactive: Presumptiv e evidence of HBV. Repeatedly reactive samples must be confirmed using a neutralization test ([employer] HBsAg Confirmatory Test)Non-Reactive: HBsAg not detected; does not exclude the possibility of exposure to HBV Laboratory - UrinalysisOrder ed By: Lauren Clinton on 03-22-2025 Protein Ql (U) Negative [facility] MCV (mean corpuscular volume ) determinationOrdered By: Lauren Clinton on 03-22-2025 MCV (RBC) [Entitic vol] 93.4 fL 81-99 [facility] Mean corpuscular hemoglobin (MCH) determinationOrdered By: Lauren Clinton on 03-22-2025 MCH (RBC) [Entitic mass] 32.0 pg 27.0-32.0 [facility] Mean corpuscular hemoglobin concentration (MCHC) determinationOrdered By: Lauren Clinton on 03-22-2025 MCHC (RBC) [Mass/Vol] 34.2 g/dL 32-36 [facility] Mean platelet volume determi nationOrdered By: Lauren Clinton on 03-22-2025 Platelet mean volume (Bld) [Entitic vol] 9.9 fL 6.2-12.0 [facility] Monocyte percentageOrdered B y: Lauren Clinton on 03-22-2025 Monocytes/100 WBC (Bld) 5.8 % 0-10 [facility] Neutrophil percentageOrdered By: Lauren Clinton on 03-22-2025 Neutrophils/100 WBC (Bld) 60.6 % 47-70 [facility] No Panel InformationOrdered By: Lauren Clinton on 03-22-2025 HIV (1&2) Antibody Non-Reactive Nonreactive [facility] Comment on above: Non-ReactiveReactive Repeatedly reactive samples must be confirmed according to CDC recommended confirmatory algorithms. The subresults for either HIVAG or AHIV can be used as an aid in the selection of the confirmation algorithm for reactive samples.Send out specimens with Reactive results to [facility] for confirmation.Order the HIV antibody detection and differentiation: #[id number] Nucleated red blood cell per centageOrdered By: Laruen Clinton on 03-22-2025 Nucleated RBC/100 WBC (Bld) [Ratio] 0 % 0-5 [facility] Pressure Controller Office Visit Reporton 03-22-2025 Pressure Controller Office Visit Report [facility] [address], [facility] [address] [place] [address] OFFICE VISIT Date of Service: 03/22/25 MR#: [id number] Acct: [id number] Name: RIGGSLAURIE Rep #: [id number] : 1990 Provider: VICKY [facility] Age/Sex: 35/F Location[place] [facility] [place] Status: Signed Intake Vital Signs 03/22/25 11:00 Height 5 ft 3 in Weight: 153 lb 4 oz BMI 27.1 BP 115/69 Intake Visit Reasons: 32wk OB co-care Gas Meter Checker Required: No Is patient in pain?: No Feel stressed/tense/nervous /anxious/difficulty sleeping: not at all Allergies No Known Allergies Allergy (Unverified 03/22/25 11:05) Medications ???Medication ???Instructions ???Recorded ???Confirmed ???Type docosahexaenoic acid 200 mg mg PO 03/11/25 03/22/25 History capsule ( DHA) ferrous sulfate 325 mg (65 mg 325 mg PO QDAY 03/11/25 03/22/25 H istory iron) tablet (Feosol) Last Menstrual Period: 08/03/24 Zika: Zika virus screening: Negative : No PFSH PFSH Surgical History H/O eye surgery History of tonsillectomy and adenoidectomy Social History (Updated 03/11/25 @ 11:50 by Sandra Sorensen RN) adopted: No household members: spouse and children housing: house number of children: 5 service: No current occupation: [employer] current occupational exposures/hazards: No pets and animals: Yes pets and animals: dog(s) and farm animals history of recent travel: No sexually active: No Smoking Status: Never smoker second hand exposure: No alcohol intake: never substance use type: does not use well-balanced diet: daily or most days caffeine: No eating out: rarely or never during the past year weight has: remained stable what type of physical activity do you participate in: walking frequency: 5-6 times per week duration: 45-60 minutes/day milady/sikh: Presybeterian seatbelt use: sometimes do you feel safe at home: Yes additional social history: : Reynaldo Ferreira History 6 Elective abortions Hx Para 5 Spontaneous abortions 0 Hx # Term Pregnancies 5 Ectopic pregnancies Hx # Pregnancies Multiple births # of living children 5 Past Pregnancies Del. Date Name GA/Weeks Outcome Route Bth Weight Infant Gen Labor Lgth Anesthesia Del Locatn Provider FOB 10/03/12 Doron 40 live - full term 8lbs 6oz Male none Home Reynaldo Burger 12/20/13 Everett 40 live - full term 7lbs 7oz Female none Home Reynaldo Burger 12/15/16 Dominic 40 live - full term 8lbs 8oz Female none [place] Reynaldo Burger 11/02/19 Elizabeth 40 live - full term 7lbs 7oz Female none [place] Reynaldo Burger 04/04/22 Sade 40 live - full term 7lbs 14oz Female none Home Reynaldo Burger Delivery Date: 11/02/19 Last Updated by: Sandra Sorensen, preventive medicine physician instructed her to watch her BS HPI 32wk OB co-care Details: LAURIE RIGGS is a 35 year old who presents for routine OB visit. OB Visit CALEB Calculator Estimated Delivery Date Method Current WG Current Estimate 05/10/25 Manual 33w 0d Expected Delivery Route/Plan Labor Preferences- CB/BF classes: [] labor support person: [] labor intervention preferences: [] pain management options preferred: [] cut cord/dad catch: [] : [] PP control planned: [] discussed possible routes of delivery and associated risks: [] special requests: [] Specific Issue/Plans Covid status: [] Flu vaccine: [] Tdap vaccine: [] Rhogam: [] LARC form signed: [] Problem list reviewed and updated with the most current plan of care details and appropriate orders placed. Relevant counseling for the gestational age provided. Continue routine care and follow up unless otherwise noted in visit notes/problem list details Initial Weight: Not Recorded Date -???-???-???-???-???-? ??-???-???-???-???-??? -???- EGA Weight BP Urine Prot -???-???-???-???-???-? ??-???-???-???-???-??? -???- Glucose FHR FuHt Pres Dilation -???-???-???-???-???-? ??-???-???-???-???-??? -???- Effaced St Visit Note 03/22/25 -???-???-???-???-???-? ??-???-???-???-???-??? -???- 33w 0d 153 lb 4 oz 115/69 Negative -???-???-???-???-???-? ??-???-???-???-???-??? -???- Negative 140 36 -???-???-???-???-???-? ??-???-???-???-???-??? -???- KW- Transfer of care from Malena Wiley. Growth US done and EFW 100%. Had regular menses and was certain of LMP-did not have an early US. NOB labs today. KW- Transfer of care from Malena gudino. Growth US done and EFW 100%. Had regular menses and was certain of LMP-did not have an early US. NOB labs today. Has been tracking BS for last 2 months and has had elevated numbers. Declining glucose testi (more content not included)... Normal [facility] Platelet countOrdered By: Quinton Clinton on 03-22-2025 Platelets (Bld) [#/Vol] 201 10*3/uL 150-450 [facility] RBC Auto (Bld) [#/Vol]Ordere d By: Lauren Clinton on 03-22-2025 RBC (Bld) [#/Vol] 3.91 10*6/uL Low 4.2-5.4 [facility] Syphilis Antibodieson 2024 Syphilis Abs Non-Reactive Normal Nonreactive [facility] Comment on above: Performed By: #### L 100.0100, L509.4006, L509.8002, BTS, L3890.6301, L501.9985, L3890.6102, L3890.6006 #### [facility] [address] [place], [place], [id number] Type AND Screenon 03-22-2025 ABO and Rh group Nom (Bld) Blood group O Rh(D) positive Normal [facility] Comment on above: Order Comment: PN Performed By: #### L 100.0100, L509.4006, L509.8002, BTS, L3890.6301, L501.9985, L3890.6102, L3890.6006 #### [facility] [address] [place], [address] Urine cultureOrdered By: You Clinton on 03-22-2025 Bacteria identified Cx Nom (U) Positive Abnormal [facility] White blood cell (WBC) count Ordered By: Lauren Clinton on 03-22-2025 WBC (Bld) [#/Vol] 5.6 10*3/uL 4.4-11.0 [facility] OB Limited With Biometricson 03-14-2025 OB Limited With Biometrics [facility] [address] [place] [address] OB Limited With Biometrics MR#: [id number] Acct: [id number] Name: LAURIE RIGGS Rep #: [id number] : 1990 F 35 From: Cody Reid MD PCP: Care Physician,No Primary Status: REG CLI Study: OB Limited With Biometrics Date of Exam: 03/14 Exam# [id number] Ordering Dr: Julieta Huffman DO PROCEDURE: OB LIMITED WITH BIOMETRICS 03/14/2025 REASON FOR EXAM: GROWTH TECHNIQUE: High resolution obstetric ultrasound performed using a 2D transducer. 3D imaging was also performed and reviewed. Standard views obtained, including biometry, anatomy survey, and Doppler studies. COMPARISON: None FINDINGS Number: 1 Position: Cephalic Placental Position: Anterior Placental Abnormalities: None Cervix to placenta distance measures 5.5 cm. DIMENSIONS: Biparietal Diameter: 8.6 cm/34 weeks 3 days +/-22 days/97th percentile Head Circumference: 31.4 cm/35 weeks 2 days +/-21 days/93rd percentile Abdominal Circumference: 32.0 cm/36 weeks 0 days +/-21 days/100 percentile Femur Length: 6.2 cm/32 weeks 1 day +/-21 days/43rd percentile ESTIMATED WEIGHT: 2511 +/-377 g ESTIMATED WEIGHT PERCENTILE (24+ weeks): 98.93% ESTIMATED GESTATIONAL AGE: Baseline: 31 weeks 6 days By Ultrasound: 34 weeks 5 days ESTIMATED DATE OF DELIVERY: Baseline: 05/10/2025 By Ultrasound: 04/20/2025 BIOPHYSICAL ASSESSMENT: Amniotic Fluid Index: 25.0 Cm (8-24 cm normal range) Heart rate: 138-140 beats per minute MATERNAL ANATOMY: Adnexa: Neither maternal ovary is successfully identified. Cervical Length (if measured): 4.1 cm US/OB Limited With Biometrics IMPRESSION: Single living intrauterine fetus, large for gestational age with estimated weight in the 99th percentile. This finding could be overestimated given that additional biometry measurements are also elevated. However, in the setting of a slightly elevated amniotic fluid index at 25 cm, findings are concerning for macrosomia. Recommend comparison with prior exams if available, and close clinical and imaging follow-up. Reading Location: [id number] CC: Dr. Julieta Huffman, DO; No Primary Care Physician Hook Up: Signed [facility] Electronics Utility Worker Cytology Reporton 2021 Electronics Utility Worker Cytology Report . Pathology Reports Accession: Collected Date/Time: Received Date/Time: Pathologist: [id number] 11/06/2021 13:03 EST 11/07/2021 18:00 EST Electronics Utility Worker Cytology Report SPECIMEN: Specimen Description: Liquid Prep w/ HPV Specimen: Cervical Screening or Diagnostic: Screening RELEVANT HISTORY: LMP: : Yes [id number] SPECIMEN ADEQUACY: SATISFACTORY FOR EVALUATION ENDOCERVICAL/TRANSFORM ATIONAL ZONE COMPONENT ABSENT/INSUFFICIENT INTERPRETATION/RESULTS : NEGATIVE FOR INTRAEPITHELIAL LESION OR MALIGNANCY HIGH RISK HPV TESTING: High Risk HPV Typing: Negative HPV Types 16, 18, 31, 33, 35, 39, 45, 51, 52, 56, 58, 59, 66 and 68 DNA were undetectable or below the pre-set threshold. The siri High-Risk HPV DNA Test is not intended for use as a screening device for Pap normal women under age 30 and is not intended to substitute for regular Pap screening. The siri High-Risk HPV DNA Test is designed to augment existing methods for the detection of cervical disease and should be used in conjunction with clinical information derived from other diagnostic and screening tests, physical examinations and full medical history in accordance with appropriate patient management procedures. NOTE: A negative result does not preclude the presence of HPV infection because results depend on adequate specimen collection, absence of inhibitors and sufficient DNA to be detected. COMMENT: This Pap Test was successfully processed and evaluated with the assistance of the NextGen PlatformPrep Test Imaging System. Electronically Signed by Pathology report verified by [facility] Screened by: GL Electronically signed by Carina Yanez Sign-Out Date: 11/12/2021 16:03 Performing Lab: [facility], [address] [place] [address] Disclaimer The Pap test is a screening test for cervical cancer. As evidenced by published data, it is subject to both inherent false negative and false positive results. Your patient's results should be interpreted in context with pertinent clinical history including gynecological examination. Normal [facility] ([place]) HPVon 11-12-2021 HPV Interp Normal See Interp HPVN [facility] [place] Comment on above: Order Comment: Order placed by AP_HPV_ORDER rule from [id number] Result Comment: High Risk HPV Typing: NEGATIVE HPV types 16, 18, 31, 33, 35, 39, 45, 51, 52, 56, 58, 59, 66 and 68 DNA were undetectable or below the pre-set threshold. The siri High-Risk HPV DNA Test is not intended for use as a screening device for Pap normal women under age 30 and is not intended to substitute for regular Pap screening. The siri High-Risk HPV DNA Test is designed to augment existing methods for the detection of cervical disease and should be used in conjunction with clinical information derived from other diagnostic and screening tests, physical examinations and full medical history in accordance with appropriate patient management procedures. NOTE: A negative result does not preclude the presence of HPV infection because results depend on adequate specimen collection, absence of inhibitors and sufficient DNA to be detected. See Interp HPVN Performed By: #### H PV #### [place] [address] HPV Source Cervix Normal [facility] ([place]) Comment on above: Order Comment: Order placed by AP_HPV_ORDER rule from [id number] Performed By: #### H PV #### [place] [address] CTPCRon 11-08-2021 C. trachomatis Interp Normal See CT Interp N [facility] ([place]) Comment on above: Result Comment: C. t rachomatis DNA not detected. Specimen is presumptive negative for C. trachomatis. A negative result does not preclude C. trachomatis infection because results depend on adequate specimen collection, absence of inhibitors, and sufficient DNA to be detected. See CT Interp N Performed By: #### C TPCR, NGPCR1 #### [place] [address] C.trachomatis PCR Negative Normal Negative [facility] ([place]) Comment on above: Result Comment: Newman sport tube received with two swabs. Review collection procedure. Inappropriate collection may cause aberrant results. Molecular (PCR) assay performed on the Tyler Siri 4800 system. Performed By: #### C TPCR, NGPCR1 #### [place] [address] Chlam Source Cervix Normal [facility] ([place]) Comment on above: Performed By: #### C TPCR, NGPCR1 #### [place] [address] [id number] 11-08-2021 GC PCR Source Cervix Normal [facility] ([place]) Comment on above: Performed By: #### C TPCR, NGPCR1 #### [place] [address] N. gonorrhoeae (PCR) Negative Normal Negative [facility] ([place]) Comment on above: Result Comment: Newman sport tube received with two swabs. Review collection procedure. Inappropriate collection may cause aberrant results. Molecular (PCR) assay performed on the Tyler Siri 4800 System. Performed By: #### C TPCR, NGPCR1 #### [place] [address] N. gonorrhoeae Interp Normal See NG Interp N [facility] ([place]) Comment on above: Result Comment: N. g onorrhoeae DNA not detected. Specimen is presumptive negative for N. gonorrhoeae. A negative result does not preclude Neisseria gonorrhoeae infection because results depend on adequate specimen collection, absence of inhibitors, and sufficient DNA to be detected. See NG Interp N Performed By: #### C TPCR, NGPCR1 #### [place] [address] LABORATORYOrdered By: Pilar Goodrich on 11-06-2021 C. trachomatis DNA JUAN+probe Ql (Unsp spec) Negative 2 (11/06/21 1:02 PM) Invalid Interpretation Code Negative AH Auto Viro/Sero SS Comment on above: Result Comment: Newman sport tube received with two swabs. Review collection procedure. Inappropriate collection may cause aberrant results. C. trachomatis Interp C. trachomatis DNA not detected. Specimen is presumptive negative forC. trachomatis.A negative result does not preclude C. trachomatis infection becauseresults depend on adequate specimen collection, absence of inhibitors,and sufficient DNA to be detected. Invalid Interpretation Code See CT Interp N AH Auto Viro/Sero SS N. gonorrhoeae DNA JUAN+probe Ql (Unsp spec) Negative 1 (11/06/21 1:02 PM) Invalid Interpretation Code Negative Auto Viro/Sero SS Comment on above: Result Comment: Newman sport tube received with two swabs. Review collection procedure. Inappropriate collection may cause aberrant results. N. gonorrhoeae Interp N. gonorrhoeae DNA not detected. Specimen is presumptive negative forN. gonorrhoeae. A negative result does not preclude Neisseria gonorrhoeaeinfection because results depend on adequate specimen collection, absenceof inhibitors, and sufficient DNA to be detected. Invalid Interpretation Code See NG Interp N Auto Viro/Sero SS Laboratory - Specimen inform ationOrdered By: Pilar Goodrich on 11-06-2021 Specimen source Nom (Unsp spec) Cervix (11/06/21 1:02 PM) Invalid Interpretation Code AH Auto Viro/Sero SS SURGon 12-04-2018 SURG Patient Name: LAURIE RIGGS Source Colon, Rectum, polyp Clinical History Rectal Polyp Diagnosis Irritated fibroepithelial polyp. Gross Description The specimen received in formalin is a quijano fragment measuring 1.6 x 1.0 x 0.8 cm. The cut edge is inked black. Serially sectioned. Totally submitted in one cassette. LM:lat (ICT/lt) Electronically Signed By Bubba Nava MD , Pathologist (Case signed 12/08/2018) Normal [facility] Vital Signs Date Time Vital Sign Value Performing Clinician Facility 04-27-2025 13:03-0400 Body height 160.02 cm No Primary Care Physician [facility] 04-27-2025 13:03-0400 Body mass index (BMI) [Ratio] 26.1 kg/m2 No Primary Care Physician [facility] 04-27-2025 13:03-0400 Body weight 66.84 kg No Primary Care Physician [facility] 04-27-2025 13:03-0400 Diastolic blood pressure 68 mm[Hg] No Primary Care Physician [facility] 04-27-2025 13:03-0400 Systolic blood pressure 116 mm[Hg] No Primary Care Physician [facility] 04-22-2025 13:38-0400 Body height 160.02 cm No Primary Care Physician [facility] 04-22-2025 13:38-0400 Body mass index (BMI) [Ratio] 26.4 kg/m2 No Primary Care Physician [facility] 04-22-2025 13:38-0400 Body weight 67.64 kg No Primary Care Physician [facility] 04-22-2025 13:38-0400 Diastolic blood pressure 67 mm[Hg] No Primary Care Physician [facility] 04-22-2025 13:38-0400 Systolic blood pressure 123 mm[Hg] No Primary Care Physician [facility] 04-13-2025 13:00-0400 Body height 160.02 cm No Primary Care Physician [facility] 04-13-2025 13:00-0400 Body mass index (BMI) [Ratio] 26.1 kg/m2 No Primary Care Physician [facility] 04-13-2025 13:00-0400 Body weight 66.84 kg No Primary Care Physician [facility] 04-13-2025 13:00-0400 Diastolic blood pressure 65 mm[Hg] No Primary Care Physician [facility] 04-13-2025 13:00-0400 Systolic blood pressure 107 mm[Hg] No Primary Care Physician [facility] 04-07-2025 13:40-0400 Body height 160.02 cm No Primary Care Physician [facility] 04-07-2025 13:40-0400 Body mass index (BMI) [Ratio] 26.4 kg/m2 No Primary Care Physician [facility] 04-07-2025 13:40-0400 Body weight 67.69 kg No Primary Care Physician [facility] 04-07-2025 13:40-0400 Diastolic blood pressure 66 mm[Hg] No Primary Care Physician [facility] 04-07-2025 13:40-0400 Systolic blood pressure 115 mm[Hg] No Primary Care Physician [facility] 04-01-2025 16:00-0400 Body height 160.02 cm No Primary Care Physician [facility] 04-01-2025 16:00-0400 Body mass index (BMI) [Ratio] 26.4 kg/m2 No Primary Care Physician [facility] 04-01-2025 16:00-0400 Body weight 67.64 kg No Primary Care Physician [facility] 04-01-2025 16:00-0400 Diastolic blood pressure 71 mm[Hg] No Primary Care Physician [facility] 04-01-2025 16:00-0400 Systolic blood pressure 123 mm[Hg] No Primary Care Physician [facility] 03-22-2025 11:00-0400 Body height 160.02 cm No Primary Care Physician [facility] 03-22-2025 11:00-0400 Body mass index (BMI) [Ratio] 27.1 kg/m2 No Primary Care Physician [facility] 03-22-2025 11:00-0400 Body weight 69.51 kg No Primary Care Physician [facility] 03-22-2025 11:00-0400 Diastolic blood pressure 69 mm[Hg] No Primary Care Physician [facility] 03-22-2025 11:00-0400 Systolic blood pressure 115 mm[Hg] No Primary Care Physician [facility] 01-05-2019 13:45-0400 BMI (Body Mass Index) 25.61 kg/m2 [facility] 01-05-2019 13:45-0400 Body Temperature 98.49 [degF] [facility] 01-05-2019 13:45-0400 BP Diastolic 77 mm[Hg] [facility] 01-05-2019 13:45-0400 BP Systolic 125 mm[Hg] [facility] 01-05-2019 13:45-[address] [facility] 01-05-2019 13:45-0400 Pulse (Heart Rate) 76 /min [facility] 01-05-2019 13:45-0400 Pulse Oximetry 98 % [facility] 01-05-2019 13:45-[address] [facility] 12-04-2018 15:18-0500 BMI (Body Mass Index) 26.31 kg/m2 [facility] 12-04-2018 15:18-0500 Body Temperature 98.4 [degF] [facility] 12-04-2018 15:18-0500 BP Diastolic 66 mm[Hg] [facility] 12-04-2018 15:18-0500 BP Systolic 122 mm[Hg] [facility] 12-04-2018 15:18-[address] [facility] 12-04-2018 15:18-0500 Pulse (Heart Rate) 87 /min [facility] 12-04-2018 15:18-0500 Pulse Oximetry 98 % [facility] 12-04-2018 15:18-[address] [facility] 11-19-2018 14:54-0500 BMI (Body Mass Index) 27.28 kg/m2 [facility] 11-19-2018 14:54-0500 Body Temperature 98.49 [degF] [facility] 11-19-2018 14:54-0500 BP Diastolic 68 mm[Hg] [facility] 11-19-2018 14:54-0500 BP Systolic 118 mm[Hg] [facility] 11-19-2018 14:54-[address] [facility] 11-19-2018 14:54-0500 Pulse (Heart Rate) 69 /min [facility] 11-19-2018 14:54-0500 Pulse Oximetry 100 % [facility] 11-19-2018 14:54-[address] [facility] 12-15-2017 13:47-0500 BMI (Body Mass Index) 26.22 kg/m2 Hoda Prykhodko [facility] 12-15-2017 13:47-0500 BP Diastolic 74 mm[Hg] Hoda Prykhodko [facility] 12-15-2017 13:47-0500 BP Systolic 124 mm[Hg] Hoda Prykhodko [facility] 12-15-2017 13:47-0500 Height 160 cm Hoda Prykhodko [facility] 12-15-2017 13:47-0500 Pulse (Heart Rate) 77 /min Hoda Prykhodko [facility] 12-15-2017 13:47-0500 Pulse Oximetry 99 % Hoda Prykhodko [facility] 12-15-2017 13:470500 Weight 67.13 kg Hoda Padron [facility] Encounters Encounter Date Encounter Type Care Provider Facility Start: 04-27-2025 End: 04-27-2025 ambulatory No Primary Care Physician -[facility] Start: 04-27-2025 End: 04-27-[address] Rhonda Fleming MD -[facility] Work Phone: Start: 04-22-2025 End: 04-22-2025 Patient encounter procedure Lauren Clinton CNM -[facility] Work Phone: Start: 04-22-2025 End: 04-22-2025 ambulatory No Primary Care Physician -[facility] Start: 04-13-2025 End: 04-13-[address] Julieta Huffman DO -[facility] Work Phone: Start: 04-13-2025 End: 04-13-2025 ambulatory No Primary Care Physician -[facility] Start: 04-13-2025 End: 04-13-2025 ambulatory No Primary Care Physician -[facility] Start: 04-13-2025 End: 04-13-[address] Rhonda Fleming MD [facility] Work Phone: Start: 04-13-2025 End: 04-13-2025 ambulatory Rhonda Fleming Facility:[facility] Start: 04-07-2025 End: 04-07-2025 Patient encounter procedure Ana CAGLE -[facility] Work Phone: Start: 04-07-2025 End: 04-07-2025 ambulatory No Primary Care Physician [facility] Work Phone: Start: 04-01-2025 End: 04-01-[address] Rhonda Fleming MD -[facility] Work Phone: Start: 04-01-2025 End: 04-01-2025 ambulatory No Primary Care Physician [facility] Work Phone: Start: 03-22-2025 End: 03-22-2025 Patient encounter procedure Lauren Clinton CNM -[facility] Work Phone: Start: 03-22-2025 End: 03-22-2025 ambulatory No Primary Care Physician [facility] Work Phone: Start: 03-22-2025 End: 03-22-2025 ambulatory Lauren Clinton Facility:[facility] Start: 03-14-2025 End: 03-14-2025 ambulatory No Primary Care Physician [facility] Work Phone: Start: 03-14-2025 End: 03-14-[address] Julieta Huffman DO [facility] Work Phone: Start: 03-14-2025 End: 03-14-2025 ambulatory Julieta Huffman Facility:[facility] Start: 03-11-2025 Non-patient / Non-visit Sandra Sorensen RN -[facility] Work Phone: Start: 03-11-2025 ambulatory Sandra Sorensen [facility] Start: 06-07-2022 ambulatory HODA THORNEKEN [facility] Start: 11-06-2021 End: 11-10-2021 Outreach Lab MARCO ARMENTA MD [facility] Start: 01-05-2019 End: 01-05-2019 Office outpatient visit 10 minutes Carlos Begum Work Phone: [facility] Comment on above: Anal polyp (Primary Dx) Start: 12-04-2018 End: 12-04-2018 Patient encounter procedure Carlos Begum Work Phone: [facility] Comment on above: Rectal polyp (Primar y Dx) Start: 12-04-2018 Patient encounter procedure Carlos Begum Facility:[facility] Start: 12-04-2018 End: 12-04-2018 Patient encounter procedure Carlos Begum Work Phone: [facility] Start: 11-19-2018 End: 11-19-2018 Office outpatient new 20 minutes Marlin Springer Work Phone: [facility] Comment on above: Rectal polyp (Primar y Dx) Start: 12-15-2017 Office/outpatient visit, new, level 3 Luda Marissa Donis Work Phone: [facility] Procedures Date Procedure Procedure Detail Performing Clinician Start: 04-13-2025 Beta-hemolytic Streptococcus culture No Primary Care Physician Start: 04-13-2025 Ultrasound scan for growth No Primary Care Physician Start: 03-22-2025 Urine culture No Primar y Care Physician Start: 03-22-2025 Hepatitis C antibody measurement No Primary Care Physician Comment on above: Reactive: Presumptiv e evidence of antibodies to HCV. Follow CDC recommendations for supplemental testing.Non-Reactive: Antibodies to HCV were not detected; does not exclude the possibility of exposure to HCVReactive Results are presumptive evidence of antibodies to HCV. Follow CDC recommendations for supplemental testing.Order confirmation testing: HCV Quant by PCR testing - HCVPCR lc#[id number] Non Reactive: < 0.8 Equivocal: >/= 0.8 to < 1.0 Reactive: >/= 1.0The CDC requires that a reactive/equivocal HCV antibody result be sent out for confirmation. HCV Quant by PCR testing. Start: 03-22-2025 Rubella IgG measurement No Primary Care Physician Comment on above: Antibody Result: Int erpretationNon-Reactive: Non- ImmuneReactive: ImmuneThe following results were obtained with the Elecsys Rubella IgG assay. Results from assays of other manufacturers cannot be used interchangeably. Start: 03-22-2025 Serologic test for syphilis No Primary Care Physician Start: 03-14-2025 Ultrasound scan for growth No Primary Care Physician History of tonsillectomy History of tonsillectomy and adenoidectomy No Primary Care Physician Structure of eye pro per (body structure) MARCO ARMENTA MD Comment on above: lasix x2 Tonsillectomy and adenoidectomy MARCO ARMENTA MD Plan of Treatment Date Care Activity Detail Author Start: 04-13-2025 Ultrasound scan for growth [facility] Start: 03-22-2025 Bacteria identified in Urine by Culture Urine Culture [facility] Start: 12-04-2018 End: 12-04-2018 Office Visit 12/04/2018 Office Visit General Surgery Carlos Begum MD [address] [facility] [address] [place] [address] [phone] [facility] Start: 06-13-2018 Influenza vaccination given SEQUENTIAL INFLUENZA VACCINE (#1) [facility] Start: 01-19-2018 Ambulatory 01/19/2018 Office Visit Otolaryngology Hoda Padron MD [address] [facility] [address] [facility] [address] [place] [address] [phone] [facility] Start: 06-13-2017 Influenza vaccination SEQUENTIAL INFLUENZA VACCINE (#1) [facility] Start: 1990 Screening for malignant neoplasm of cervix PAP SMEAR [facility] Start: 1990 Tetanus vaccination TETANUS EVERY [address] [facility] Erythrocyte mean corpuscular volume determination [facility] Hematocrit [Volume Fraction] of Blood [facility] Hemoglobin [Mass/vol ume] in Blood [facility] Hemoglobin A1c/Hemoglobin.total in Blood [facility] Hepatitis B virus surface Ag [Presence] in Serum [facility] Hepatitis C antibody measurement [facility] Leukocytes [#/volume ] in Blood [facility] Mean corpuscular hemoglobin concentration determination [facility] Mean corpuscular hemoglobin determination [facility] Neutrophil count [facility] Neutrophil percent differential count [facility] Platelets [#/volume] in Blood [facility] Red blood cell count [facility] Red cell distributio n width determination [facility] Rubella IgG measurement [facility] Serologic test for syphilis [facility] Streptococcus agalac tiae [Presence] in Unspecified specimen by Organism specific culture [facility] Ultrasound scan for growth [facility] Urine culture [facility] [place] [place] Payers Date Payer Category Payer Self-pay 2025 Unknown [id number] Self-pay [id number] Unknown [id number] 2.16.8 [id number] Unknown [id number] 2.16.8 [id number] Unknown [id number] 2.16.8 [id number] Unknown [id number] 2.16.8 [id number] Unknown [id number] 2.16.8 [id number] Unknown [id number] 2.16.8 [id number] Unknown [id number] 2.16.8 [id number] Unknown [id number] 2.16.8 [id number] Unknown [id number] 2.16.8 [id number] Social History Date Type Detail Facility Start: 12-15-2017 End: 03-11-2025 Tobacco smoking status [facility] Never smoker [facility] Sex Assigned At Not on file [facility] Start: 1990 Sex Assigned At Female A [facility] Clinical Notes 03-14-2025 to 04-27-2025 Note Date & Type Note Facility 04-27-2025 Progress note [facility] 04-22-2025 Progress note [facility] 04-22-2025 Progress note Note Date/Time April 22, 2025 2:25pm [facility] [address] [place] [address], [address] [place] [address] OFFICE VISIT Date of Service: 04/22/25 MR#: [id number] Acct: [id number] Name: LAURIE RIGGS Rep #: [id number] : 1990 Provider: VICKY Clinton Age/Sex: 35/F Location: [facility] [place] Status: Signed Intake Vital Signs 04/01/25 16:00 04/13/25 13:00 04/22/25 13:38 Height 5 ft 3 in 5 ft 3 in 5 ft 3 in Weight: 147 lb 6 oz 149 lb 2 oz BMI 26.1 26.4 BP 107/65 123/67 H Intake Visit Reasons: 37wk ob/nst Chief Complaint: 37wk ob/nst Gas Meter Checker Required: No Is patient in pain?: No Allergies No Known Allergies Allergy (Verified 04/22/25 13:36) Medications ?Medication ?Instructions ?Recorded ?Confirmed ?Type docosahexaenoic acid 200 mg mg PO 03/11/25 04/22/25 Hi story capsule ( DHA) ferrous sulfate 325 mg (65 mg 325 mg PO QDAY 03/11/25 04/22/25 History iron) tablet (Feosol) metformin 500 mg tablet 500 mg PO BID #60 tabs 04/1304/22/25 Rx Last Menstrual Period: 08/03/24 : No PFSH PFSH Surgical History H/O eye surgery History of tonsillectomy and adenoidectomy Social History adopted: No household members: spouse and children housing: house number of children: 5 current occupation: [employer] current occupational exposures/hazards: No pets and animals: Yes pets and animals: dog(s) and farm animals history of recent travel: No sexually active: No Smoking Status: Never smoker second hand exposure: No alcohol intake: never substance use type: does not use well-balanced diet: daily or most days caffeine: No eating out: rarely or never during the past year weight has: remained stable what type of physical activity do you participate in: walking frequency: 5-6 times per week duration: 45-60 minutes/day milady/sikh: Presybeterian seatbelt use: sometimes do you feel safe at home: Yes additional social history: : Reynaldo Burger - Jhon History 6 Elective abortions Hx Para 5 Spontaneous abortions 0 Hx # Term Pregnancies 5 Ectopic pregnancies Hx # Pregnancies Multiple births # of living children 5 Past Pregnancies Del. Date Name GA/Weeks Outcome Route Bth Weight Infant Gen Labor Lgth Anesthesia Del Locatn Provider FOB 10/03/12 Doron 40 live - full term 8lbs 6oz Male no ne Home Reynaldo Burger 12/20/13 Sarah 40 live - full term 7lbs 7oz Female none Home Reynaldo Burger 12/15/16 Dominic 40 live - full term 8lbs 8oz Female none [facility] Reynaldo Burger 11/02/19 Elizabeth 40 live - full term 7lbs 7oz Female none [facility] Reynaldo Burger 04/04/22 Sade 40 live - full term 7lbs 14oz Female none Home Reynaldo Burger Delivery Date: 11/02/19 Last Updated by: Sandra Sorensen preventive medicine physician instructed her to watch her BS HPI 37wk ob/nst Details: LAURIE RIGGS is a 35 year old who presents for routine OB visit. OB Visit CALEB Calculator Estimated Delivery Date Method Current WG Current Estimate 05/10/25 LMP (Certain) 37w 3d Other Estimates 05/10/25 Manual 37w 3d Expected Delivery Route/Plan Labor Preferences- CB/BF classes: [] labor support person: [] labor intervention preferences: [] pain management options preferred: [] cut cord/dad catch: [] : [] PP control planned: [] discussed possible routes of delivery and associated risks: [] special requests: [] Specific Issue/Plans Covid status: [] Flu vaccine: [] Tdap vaccine: [] Rhogam: [] LARC form signed: [] Problem list reviewed and updated with the most current plan of care details and appropriate orders placed. Relevant counseling for the gestational age provided. Continue routine care and follow up unless otherwise noted in visit notes/problem list details Initial Weight: Not Recorded Date -?-?-?-?-?-?-?-?-?-?-?-?- EGA Weight BP Urine Prot -?-?-?-?-?-?-?-?-?-?-?-?- Glucose FHR FuHt Pres Dilation -?-?-?-?-?-?-?-?-?-?-?-?- Effaced St Visit Note 03/22/25 -?--?-?-?-?-?-?-?-?-?-?-?- 33w 0d 153 lb 4 oz 115/69 Nega tive -?-?-?-?-?-?-?-?-?-?-?-?- Negative 140 36 -?-?-?-?-?-?-?-?-?-?-?-?- KW- Transfer of care from Malena Wiley. Growth US done and EFW 100%. Had regular menses and was certain of LMP-did not have an early US. NOB labs today. KW- Transfer of care from Nkechi Wiley. Growth US done and EFW 100%. Had regular menses and was certain of LMP-did not have an early US. NOB labs today. Has been tracking BS for last 2 months and has had elevated numbers. Declining glucose testing and will continue to monitor for another week with new monitor (BS are well controlled with new readings) Discussed needing possible medications if elevated numbers. GDM vs wrong dates. 04/01/25 -?-?-?-?-?-?-?-?-?-?-?-?- 34w 3d 149 lb 2 oz 123/71 Nega tive -?-?-?-?-?-?-?-?-?-?-?-?- Negative 145 36 -?-?-?-?-?-?-?-?-?-?-?-?- SM- no vb lof go od fm no regular ctx 04/07/25 -?-?-?-?-?-?-?-?-?-?-?-?- 35w 2d 149 lb 4 oz 115/66 Nega tive -?-?-?-?-?-?-?-?-?-?-?-?- Negative 140 -?-?-?-?-?-?-?-?-?-?-?-?- MH-NST only reac tive 04/13/25 -?-?-?-?-?-?-?-?-?-?-?-?- 36w 1d 147 lb 6 oz 107/65 Nega tive -?-?-?-?-?-?-?-?-?-?-?-?- Negative 140 37 Cephalic 2 .5 -?-?-?-?-?-?-?-?-?-?-?-?- 70 -2 JV- nst re active. Fasting glucose levels still elevated. patient states she is eating no carbs and walking often. will start 500 bid metformin. She states that she is grateful for the medication because she feels like she is starving. GBS today. formal scan resutls pending. WEI 21. AC 92nd% EFW at 3 9weeks will be 8-9 pounds JV- nst reactive. Fasting gl ucose levels still elevated. patient states she is eating no carbs and walking often. will start 500 bid metformin. She states that she is grateful for the medication because she feels like she is starving. GBS today. formal scan resutls pending. WEI 21. AC 92nd% EFW at 3 9weeks will be 8-9 pounds. explained that will need twice weekly nsts but does not want to do that. She will keep friday's appt and we will discuss more. she may delivery soon as is already gomez and is 2-3 cm dilated. 04/22/25 -?-?-?-?-?-?-?-?-?-?-?-?- 37w 3d 149 lb 2 oz 123/67 Nega tive -?-?-?-?-?-?-?-?-?-?-?-?- Negative 135 37 Cephalic -?-?-?-?-?-?-?-?-?-?-?-?- KW- No vb/lof/ct x. good fm. NST reactive. growth US reviewed. blood sugars reviewed and fastings look better. all under 95/120. IOL set up for 05/03. will need orders sent next visit based on SVE. ACOG First Trimester First Trimester: Desire for , Alcohol, Tobacco Cessation, Illicit/Recreational Drug/Substance Use, Intimate Partner Violence, Barriers to care, Unstable Housing, Communication Barriers, Environmental/Work Hazards, Anticipated Course of Care, Toxoplasmosis Precations, Use of Any medications, Sexual activity, Exercise, Dental Care, Sauna/Hot tub use, Seat Belt use, Childbirth classes/Hospital facilities, Travel, Indications for Ultrasound and Screening for Aneuploidy; Discussed ROS Const Reports system reviewed and no additional complaints, except as documented Eyes Reports system reviewed and no additional complaints, except as documented ENT Reports system reviewed and no additional complaints, except as documented Card Reports system reviewed and no additional complaints, except as documented Resp Reports system reviewed and no additional complaints, except as documented GI Reports system reviewed and no additional complaints, except as documented, Denies nausea and Denies vomiting Reports system reviewed and no additional complaints, except as documented Musc Reports system reviewed and no additional complaints, except as documented Skin/Breast Reports system reviewed and no additional complaints, except as documented Neuro Yes system reviewed and no additional complaints, except as documented Psych Reports system reviewed and no additional complaints, except as documented Endo Reports system reviewed and no additional complaints, except as documented Waqar/Lymph Reports system reviewed and no additional complaints, except as documented Aller/Immun Reports system reviewed and no additional complaints, except as documented Exam Const General: cooperative, healthy appearing and no acute distress Orientation: alert, awake and oriented x3 Neck Neck: normal visual inspection and full ROM Resp Effort & Inspection: normal respiratory effort, able to speak in complete sentences and symmetric chest movement GI Inspection: normal to inspection Palpation: soft and other Other: gravid Skin General: no rashes or lesions noted Neuro General: patient alert, patient awake and patient oriented x3 Cognition: normal cognition Speech: speech normal Gait: normal gait Motor: muscle tone normal throughout Extrem General: normal to inspection and full ROM Psych Appearance: grossly normal Mental Status: mental status grossly normal Mood: congruent mood Affect: normal affect Speech and Movement: speech and movement normal Attitude: cooperative Thought Process: normal Thought Content: normal Judgment: judgment good Office Procedures Non-stress Test Non-Stress Test Indications for Monitoring: Yes diabetes Heart Rate Baseline: 135 Heart Rate Variability: moderate Movement: Present Heart Rate Accelerations: Present Decelerations: Absent Contractions: Absent Impression: Yes Reactive Non-Stress Test Results POC Urinalysis 2 Dip (Clinic) Office Urine Glucose Negative Last Edit by Ashley Grewal on 04/22/25 13:47 Office Urine Protein Negative Last Edit by Ashley Grewal on 04/22/25 13:47 Coding Level of Care Code OB Routine Diagnoses Diet controlled gestational diabetes mellitus (GDM) in third trimester O24.410 Gestational diabetes mellitus control: diet-controlled Trimester: third trimester Polyhydramnios affecting O40.9XX0 LGA (large for gestational age) fetus Hx gestational diabetes Z86.32 Encounter for supervision of other normal in third trimester Z34.83 Normal : other normal Trimester: third trimester 37 weeks gestation of Z3A.37 Weeks of gestation: 37 weeks CPT Codes Non-Stress Test (90449) Assessment and Plan Assessment and Plan (1) Gestational diabetes mellitus (GDM): Status: Acute Qualifiers: Gestational diabetes mellitus control: diet-controlled Trimester: third trimester Qualified Code(s): O24.410 - Gestational diabetes mellitus in , diet controlled Comment: diet controlled. continue to monitor growth US 36 weeks. metformin started 04/13/25- patient declines to come in twice a week for nsts. will do only once a week (2) Polyhydramnios affecting : Status: Acute Comment: WEI 25 weekly nsts until delivery, deliver 39 weeks (3) LGA (large for gestational age) fetus: Status: Acute Comment: EFW 98%, AC 100% 32 wk (4) Hx gestational diabetes: Status: Acute (5) Supervision of normal : Status: Acute Qualifiers: Normal : other normal Trimester: third trimester Qualified Code(s): Z34.83 - Encounter for supervision of other normal , third trimester Comment: Neg gbs PRR ([facility] , CALEB 05/10/25, PC: Sarah Sal Andrea, Emily & Sade, : Reynaldo Burger (6) : Status: Acute Qualifiers: Weeks of gestation: 37 weeks Qualified Code(s): Z3A.37 - 37 weeks gestation of Comment: [Co-Care w/Malena Wiley, RON @ [facility]] No genetic/carrier testing done Orders: Orders POC Urinalysis 2 Dip (Clinic) Today OB NST Today O24.410 - Gestational diabetes mellitus in , diet controlled, O40.9XX0 - Polyhydramnios, unspecified trimester, not applicable or unspecified Plan Details Additional Comments: ACOG trimester education reviewed and updated. see problem list details for updated plan management information and see below for orders placed at this visit. GA appropriate handout given. 04/22/25 [id number] <Electronically signed by Lauren house CNM> Date _ Lauren Oz PERRY Cosigner Signature: Date (if applicable) CC: ~ [facility] Work Phone: [phone] [phone] Radiology Diagnostic study note [facility] Services [address] [place], [place] [address] OB Limited With Biometrics MR#: [id number] Acct: [id number] Name: LAURIE RIGGS Rep #: [id number] : 1990 F 35 From: Baldo Velez MD PCP: Care Physician,No Primary Status: REG CLI Study:OB Limited With Biometrics Date of Exam : 04/13/25 Exam# [id number] Ordering Dr: Rhonda Estrella MD PROCEDURE: OB LIMITED WITH BIOMETRICS 04/13/2025 REASON FOR EXAM: GROWTH TECHNIQUE: OB LIMITED WITH BIOMETRICS COMPARISON: Prior study dated March 14, 2025. FINDINGS LMP: August 03, 2024. Number: 1 Position: Vertex Placental Position: Anterior and not low-lying. Placental Abnormalities: No evidence of previa. DIMENSIONS: Biparietal Diameter: 8.92 cm: 36 weeks and 1 day: 58 percentile/ Head Circumference: 32.51 cm: 36 weeks and 6 days: 36 percentile/ Abdominal Circumference: 33.82 cm: 37 weeks and 5 days: 93rd percentile/ Femur Length: 7.11 cm: 36 weeks and 3 days: 53 percentile/ ESTIMATED WEIGHT: 3152 g plus/-473 g ESTIMATED WEIGHT PERCENTILE (24+ weeks): 79 ESTIMATED GESTATIONAL AGE: Baseline: 36 weeks and 1 day By Ultrasound: 37 weeks and 1 day ESTIMATED DATE OF DELIVERY: Baseline: May 10, 2025 By Ultrasound: May 03, 2025 BIOPHYSICAL ASSESSMENT: Amniotic Fluid Volume: 6 cm Amniotic Fluid Index: 21.2 (8-24 cm normal range) Cardiac Motion: 147 beats per minute (average) Trunk and Limb Motion: Present. MATERNAL ANATOMY: Adnexa: Neither maternal ovary is successfully identified. US/OB Limited With Biometrics IMPRESSION: Single live intrauterine gestation with a mean gestational age of 37 weeks and 1day. Reading Location: [place] [address] CC: Dr. Rhonda Fleming MD; No Primary Care Physician ~ Hook Up: Signed [facility]06-20-2025 Progress [facility] [address], [address] [place] [address] OFFICE VISIT Date of Service: 04/01/25 MR#: [id number] Acct: [id number] Name: LAURIE RIGGS Rep #: [id number] : 1990 Provider: Dr. Ministerio Fleming MD Age/Sex: 35/F Location[facility] Status: Signed Intake Vital Signs 03/22/25 11:00 04/01/25 16:00 Height 5 ft 3 in 5 ft 3 in Weight: 149 lb 2 oz BMI 26.4 BP 123/71 H Intake Visit Reasons: 33wk ob per KW *co care Chief Complaint: 33 Week OB Gas Meter Checker Required: No Is patient in pain?: No Allergies No Known Allergies Allergy (Unverified 04/01/25 16:00) Medications ?Medication ?Instructions ?Recorded ?Confirmed ?Type docosahexaenoic acid 200 mg mg PO 03/11/25 04/01/25 Hi story capsule ( DHA) ferrous sulfate 325 mg (65 mg 325 mg PO QDAY 03/11/25 04/01/25 History iron) tablet (Feosol) Last Menstrual Period: 08/03/24 Zika: Zika virus screening: Negative : No PFSH PFSH Surgical History H/O eye surgery History of tonsillectomy and adenoidectomy Social History adopted: No household members: spouse and children housing: house number of children: 5 current occupation: [employer] current occupational exposures/hazards: No pets and animals: Yes pets and animals: dog(s) and farm animals history of recent travel: No sexually active: No Smoking Status: Never smoker second hand exposure: No alcohol intake: never substance use type: does not use well-balanced diet: daily or most days caffeine: No eating out: rarely or never during the past year weight has: remained stable what type of physical activity do you participate in: walking frequency: 5-6 times per week duration: 45-60 minutes/day milady/sikh: Presybeterian seatbelt use: sometimes do you feel safe at home: Yes additional social history: : Reynaldo Burger - Farm History 6 Elective abortions Hx Para 5 Spontaneous abortions 0 Hx # Term Pregnancies 5 Ectopic pregnancies Hx # Pregnancies Multiple births # of living children 5 Past Pregnancies Del. Date Name GA/Weeks Outcome Route Bth Weight Gen Labor Lgth Anesthesia Del Locatn Provider FOB 10/03/12 Doron 40 live - full term 8lbs 6oz Male no ne Home Reynaldo Burger 12/20/13 Everett 40 live - full term 7lbs 7oz Female none Home Reynaldo Burger 12/15/16 Dominic 40 live - full term 8lbs 8oz Female none [facility] Reynaldo Burger 11/02/19 Elizabeth 40 live - full term 7lbs 7oz Female none [facility] Reynaldo Burger 04/04/22 Sade 40 live - full term 7lbs 14oz Female none Home Reynaldo Burger Delivery Date: 11/02/19 Last Updated by: Sandra Sorensen preventive medicine physician instructed her to watch her BS HPI 33wk ob per KW *co care Details: LAURIE RIGGS is a 35 year old who presents for routine OB visit. pos preg test sep 07 OB Visit CALEB Calculator Estimated Delivery Date Method Current WG Current Estimate 05/10/25 LMP (Certain) 34w 3d Other Estimates 05/10/25 Manual 34w 3d Expected Delivery Route/Plan Labor Preferences- CB/BF classes: [] labor support person: [] labor intervention preferences: [] pain management options preferred: [] cut cord/dad catch: [] : [] PP control planned: [] discussed possible routes of delivery and associated risks: [] special requests: [] Specific Issue/Plans Covid status: [] Flu vaccine: [] Tdap vaccine: [] Rhogam: [] LARC form signed: [] Problem list reviewed and updated with the most current plan of care details and appropriate ordersplaced. Relevant counseling for the gestational age provided. Continue routine care and follow up unless otherwise noted in visit notes/problem list details Initial Weight: Not Recorded Date -?-?-?-?-?-?-?-?-?-?-?-?- EGA Weight BP Urine Prot -?-?-?-?-?-?-?-?-?-?-?-?- Glucose FHR FuHt Pres Dilation -?-?-?-?-?-?-?-?-?-?-?-?- Effaced St Visit Note 03/22/25 -?-?-?-?-?-?-?-?-?-?-?-?- 33w 0d 153 lb 4 oz 115/69 Nega tive -?-?-?-?-?-?-?-?-?-?-?-?- Negative 140 36 -?-?-?-?-?-?-?-?-?-?-?-?- KW- Transfer of care from Malena Saurabh. Growth US done and EFW 100%. Had regular menses and was certain of LMP-did not have an early US. NOB labs today. KW- Transfer of care from Nkechi Wiley. Growth US done and EFW 100%. Had regular menses and was certain of LMP-did not have an early US. NOB labs today. Has been tracking BS for last 2 months and has had elevated numbers. Declining glucose testing and will continue to monitor foranother week with new monitor (BS are well controlled with new readings) Discussed needing possiblemedications if elevated numbers. GDM vs wrong dates. 04/01/25 -?-?-?-?-?-?-?-?-?-?-?-?- 34w 3d 149 lb 2 oz 123/71 Nega tive -?-?-?-?-?-?-?-?-?-?-?-?- Negative 145 36 -?-?-?-?-?-?-?-?-?-?-?-?- SM- no vb lof go od fm no regular ctx ACOG First Trimester First Trimester: Desire for , Alcohol, Tobacco Cessation, Illicit/Recreational Drug/Substance Use, Intimate Partner Violence, Barriers to care, Unstable Housing, Communication Barriers, Environmental/Work Hazards, Anticipated Course of Care, Toxoplasmosis Precations, Use of Any med ications, Sexual activity, Exercise, Dental Care, Sauna/Hot tub use, Seat Belt use, Childbirth classes/Hospital facilities, Travel, Indications for Ultrasound and Screening for Aneuploidy; Discussed Results POC Urinalysis 2 Dip (Clinic) Office Urine Glucose Negative Last Edit by Maria Esther Bailey on 04/01/25 16 :10 Office Urine Protein Negative Last Edit by Maria Esther Bailey on 04/01/25 16 :10 Coding Level of Care Code OB Routine Diagnoses 34 weeks gestation of Z3A.34 Weeks of gestation: 34 weeks Supervision of normal Z34.90 Hx gestational diabetes Z86.32 LGA (large for gestational age) fetus Polyhydramnios affecting O40.9XX0 Gestational diabetes mellitus (GDM) O24.419 Assessment and Plan Assessment and Plan (1) : Status: Acute Qualifiers: Weeks of gestation: 34 weeks Qualified Code(s): Z3A.34 - 34 weeks gestation of Comment: [Co-Care w/Malena Wiley, RON @ 31wks] No genetic/carrier testing done (2) Supervision of normal : Status: Acute Comment: PRR ([facility] , CALEB 05/10/25, PC: Sarah Sal Andrea, Emily & Sade, :Reynaldo Burger (3) Hx gestational diabetes: Status: Acute (4) LGA (large for gestational age) fetus: Status: Acute Comment: EFW 98%, AC 100% 32 wk (5) Polyhydramnios affecting : Status: Acute Comment: WEI 25 weekly nsts until delivery, deliver 39 weeks (6) Gestational diabetes mellitus (GDM): Status: Acute Comment: diet controlled. continue to monitor growth US 36 weeks Orders: Orders POC Urinalysis 2 Dip (Clinic) Today 04/01/25 Kelly mata MD> Date _ Rhonda Fleming MD Cosigner Signature: Date (if applicable) CC: ~ [facility]06-20-2025 Progress note Author Rhonda Fleming [facility] Note Date/Time April 01, 2025 4:59 pm [facility] [address] [place] [address], [address] [place] [address] OFFICE VISIT Date of Service: 04/01/25 MR#: [id number] Acct: [id number] Name: LAURIE RIGGS Rep #: [id number] : 1990 Provider: Dr. Ministerio Fleming MD Age/Sex: 35/F Location[place] [facility] [place] Status: Signed Intake Vital Signs 03/22/25 11:00 04/01/25 16:00 Height 5 ft 3 in 5 ft 3 in Weight: 149 lb 2 oz BMI 26.4 BP 123/71 H Intake Visit Reasons: 33wk ob per KW *co care Chief Complaint: 33 Week OB Gas Meter Checker Required: No Is patient in pain?: No Allergies No Known Allergies Allergy (Unverified 04/01/25 16:00) Medications ?Medication ?Instructions ?Recorded ?Confirmed ?Type docosahexaenoic acid 200 mg mg PO 03/11/25 04/01/25 Hi story capsule ( DHA) ferrous sulfate 325 mg (65 mg 325 mg PO QDAY 03/11/25 04/01/25 History iron) tablet (Feosol) Last Menstrual Period: 08/03/24 Zika: Zika virus screening: Negative : No PFSH PFSH Surgical History H/O eye surgery History of tonsillectomy and adenoidectomy Social History adopted: No household members: spouse and children housing: house number of children: 5 current occupation: [employer] current occupational exposures/hazards: No pets and animals: Yes pets and animals: dog(s) and farm animals history of recent travel: No sexually active: No Smoking Status: Never smoker second hand exposure: No alcohol intake: never substance use type: does not use well-balanced diet: daily or most days caffeine: No eating out: rarely or never during the past year weight has: remained stable what type of physical activity do you participate in: walking frequency: 5-6 times per week duration: 45-60 minutes/day milady/sikh: Presybeterian seatbelt use: sometimes do you feel safe at home: Yes additional social history: : Reynaldo Ferreira History 6 Elective abortions Hx Para 5 Spontaneous abortions 0 Hx # Term Pregnancies 5 Ectopic pregnancies Hx # Pregnancies Multiple births # of living children 5 Past Pregnancies Del. Date Name GA/Weeks Outcome Route Bth Weight Gen Labor Lgth Anesthesia Del Locatn Provider FOB 10/03/12 Doron 40 live - full term 8lbs 6oz Male no ne Home Reynaldo Burger 12/20/13 Sarah 40 live - full term 7lbs 7oz Female none Home Reynaldo Burger 12/15/16 Dominic 40 live - full term 8lbs 8oz Female none [facility] Reynaldo Burger 11/02/19 Elizabeth 40 live - full term 7lbs 7oz Female none [facility] Reynaldo Burger 04/04/22 Sade 40 live - full term 7lbs 14oz Female none Home Liam Delivery Date: 11/02/19 Last Updated by: Sandra Sorensen, preventive medicine physician instructed her to watch her BS HPI 33wk ob per KW *co care Details: LAURIE RIGGS is a 35 year old who presents for routine OB visit. pos preg test sep 07 OB Visit CALEB Calculator Estimated Delivery Date Method Current WG Current Estimate 05/10/25 LMP (Certain) 34w 3d Other Estimates 05/10/25 Manual 34w 3d Expected Delivery Route/Plan Labor Preferences- CB/BF classes: [] labor support person: [] labor intervention preferences: [] pain management options preferred: [] cut cord/dad catch: [] : [] PP control planned: [] discussed possible routes of delivery and associated risks: [] special requests: [] Specific Issue/Plans Covid status: [] Flu vaccine: [] Tdap vaccine: [] Rhogam: [] LARC form signed: [] Problem list reviewed and updated with the most current plan of care details and appropriate orders placed. Relevant counseling for the gestational age provided. Continue routine care and follow up unless otherwise noted in visit notes/problem list details Initial Weight: Not Recorded Date -?-?-?-?-?-?-?-?-?-?-?-?- EGA Weight BP Urine Prot -?-?-?-?-?-?-?-?-?-?-?-?- Glucose FHR FuHt Pres Dilation -?-?-?-?-?-?-?-?-?-?-?-?- Effaced St Visit Note 03/22/25 -?-?-?-?-?-?-?-?-?-?-?-?- 33w 0d 153 lb 4 oz 115/69 Nega tive -?-?-?-?-?-?-?-?-?-?-?-?- Negative 140 36 -?-?-?-?-?-?-?-?-?-?-?-?- KW- Transfer of care from Malena Saurabh. Growth US done and EFW 100%. Had regular menses and was certain of LMP-did not have an early US. NOB labs today. KW- Transfer of care from Nkechi Wiley. Growth US done and EFW 100%. Had regular menses and was certain of LMP-did not have an early US. NOB labs today. Has been tracking BS for last 2 months and has had elevated numbers. Declining glucose testing and will continue to monitor for another week with new monitor (BS are well controlled with new readings) Discussed needing possible medications if elevated numbers. GDM vs wrong dates. 04/01/25 -?-?-?-?-?-?-?-?-?-?-?-?- 34w 3d 149 lb 2 oz 123/71 Nega tive -?-?-?-?-?-?-?-?-?-?-?-?- Negative 145 36 -?-?-?-?-?-?-?-?-?-?-?-?- SM- no vb lof go od fm no regular ctx ACOG First Trimester First Trimester: Desire for , Alcohol, Tobacco Cessation, Illicit/Recreational Drug/Substance Use, Intimate Partner Violence, Barriers to care, Unstable Housing, Communication Barriers, Environmental/Work Hazards, Anticipated Course of Care, Toxoplasmosis Precations, Use of Any medications, Sexual activity, Exercise, Dental Care, Sauna/Hot tub use, Seat Belt use, Childbirth classes/Hospital facilities, Travel, Indications for Ultrasound and Screening for Aneuploidy; Discussed Results POC Urinalysis 2 Dip (Clinic) Office Urine Glucose Negative Last Edit by Maria Esther Bailey on 04/01/25 16 :10 Office Urine Protein Negative Last Edit by Maria Esther Bailey on 04/01/25 16 :10 Coding Level of Care Code OB Routine Diagnoses 34 weeks gestation of Z3A.34 Weeks of gestation: 34 weeks Supervision of normal Z34.90 Hx gestational diabetes Z86.32 LGA (large for gestational age) fetus Polyhydramnios affecting O40.9XX0 Gestational diabetes mellitus (GDM) O24.419 Assessment and Plan Assessment and Plan (1) : Status: Acute Qualifiers: Weeks of gestation: 34 weeks Qualified Code(s): Z3A.34 - 34 weeks gestation of Comment: [Co-Care w/Malena Wiley, RON @ [facility]] No genetic/carrier testing done (2) Supervision of normal : Status: Acute Comment: PRR (waiting on gcc) , CALEB 05/10/25, PC: Sarah Sal Andrea, Emily & Sade, : Reynaldo Burger (3) Hx gestational diabetes: Status: Acute (4) LGA (large for gestational age) fetus: Status: Acute Comment: EFW 98%, AC 100% 32 wk (5) Polyhydramnios affecting : Status: Acute Comment: WEI 25 weekly nsts until delivery, deliver 39 weeks (6) Gestational diabetes mellitus (GDM): Status: Acute Comment: diet controlled. continue to monitor growth US 36 weeks Orders: Orders POC Urinalysis 2 Dip (Clinic) Today 04/01/25 4620 <Electronically signed by Rhonda mata MD> Date _ Rhonda Fleming MD Cosigner Signature: Date (if applicable) CC: ~ [facility] Work Phone: 1(926) 292-208006-10-2025 Evaluation note* Diagnosis Onset Date Resolution Status Admit Date Hx gestational diabetes acute J 2024 10:57am LGA (large for gestational a ge) fetus acute March 22, 2025 10:57am Polyhydramnios affecting acute March 22, 2025 10:57am acute March 22 10:57am Supervision of normal acut e March 22, 2025 10:57am [facility] Work Phone: [phone]) 550-318706-10-2025 Evaluation note* Diagnosis Onset Date Resolution Status Admit Date Hx gestational diabetes acute J 2024 10:57am LGA (large for gestational a ge) fetus acute March 22, 2025 10:57am Polyhydramnios affecting acute March 22, 2025 10:57am acute March 22 10:57am Supervision of normal acut e March 22, 2025 10:57am Gestational diabetes mellitu s (GDM) acute April 01, 2025 3:56pm Hx gestational diabetes acute J 2024 3:56pm LGA (large for gestational a ge) fetus acute April 01, 2025 3:56pm Polyhydramnios affecting acute April 01, 2025 3:56pm acute April 01 3:56pm Supervision of normal acut e April 01, 2025 3:56pm [facility] Work Phone: [phone] 725-637406-10-2025 Evaluation note* Diagnosis Onset Date Resolution Status Admit Date Hx gestational diabetes acute J 2024 10:57am LGA (large for gestational a ge) fetus acute March 22, 2025 10:57am Polyhydramnios affecting acute March 22, 2025 10:57am acute March 22 10:57am Supervision of normal acut e March 22, 2025 10:57am Gestational diabetes mellitu s (GDM) acute April 01, 2025 3:56pm Hx gestational diabetes acute J 2024 3:56pm LGA (large for gestational a ge) fetus acute April 01, 2025 3:56pm Polyhydramnios affecting acute April 01, 2025 3:56pm acute April 01 3:56pm Supervision of normal acut e April 01, 2025 3:56pm Gestational diabetes mellitu s (GDM) acute April 07, 2025 1:36pm Hx [facility] 1:36pm LGA (large for gestational a ge) fetus acute April 07, 2025 1:36pm Polyhydramnios affecting acute April 07, 2025 1:36pm acute April 07 1:36pm Supervision of normal acut e April 07, 2025 1:36pm [facility] Work Phone: [phone] 288-268006-10-2025 Evaluation note* Diagnosis Onset Date Resolution Status Admit Date Hx gestational diabetes acute [facility] 2024 10:57am LGA (large for gestational a ge) fetus acute March 22, 2025 10:57am Polyhydramnios affecting acute March 22, 2025 10:57am acute March 22 10:57am Supervision of normal acut e March 22, 2025 10:57am Gestational diabetes mellitu s (GDM) acute April 01, 2025 3:56pm Hx gestational diabetes acute J 2024 3:56pm LGA (large for gestational a ge) fetus acute April 01, 2025 3:56pm Polyhydramnios affecting acute April 01, 2025 3:56pm acute April 01 3:56pm Supervision of normal acut e April 01, 2025 3:56pm Gestational diabetes mellitu s (GDM) acute April 07, 2025 1:36pm Hx gestational diabetes [facility] 20[facility] 1:36pm LGA (large for gestational a ge) fetus acute April 07, 2025 1:36pm Polyhydramnios affecting acute April 07, 2025 1:36pm acute April 07 1:36pm Supervision of normal acut e April 07, 2025 1:36pm Gestational diabetes mellitu s (GDM) acute April 13, 2025 1 2:32pm Hx gestational diabetes acute J jane2024 12:32pm LGA (large for gestational a ge) fetus acute April 13, 2025 1 2:32pm Polyhydramnios affecting acute April 13, 2025 1 2:32pm acute April 13, 2025 12:32pm Supervision of normal acut e April 13, 2025 12:32pm [facility] Work Phone: [phone] Evaluation note* Diagnosis Onset Date Resolution Status Admit Date Hx gestational diabetes acute [facility] 2024 10:57am LGA (large for gestational a ge) fetus acute March 22, 2025 10:57am Polyhydramnios affecting acute March 22, 2025 10:57am acute March 22 10:57am Supervision of normal acut e March 22, 2025 10:57am Gestational diabetes mellitu s (GDM) acute April 01, 2025 3:56pm Hx gestational diabetes acute [facility] 2024 3:56pm LGA (large for gestational a ge) fetus acute April 01, 2025 3:56pm Polyhydramnios affecting acute April 01, 2025 3:56pm acute April 01 3:56pm Supervision of normal acut e April 01, 2025 3:56pm Gestational diabetes mellitu s (GDM) acute April 07, 2025 1:36pm Hx gestational diabetes acute [facility] 2024 1:36pm LGA (large for gestational a ge) fetus acute April 07, 2025 1:36pm Polyhydramnios affecting acute April 07, 2025 1:36pm acute April 07 1:36pm Supervision of normal acut e April 07, 2025 1:36pm Gestational diabetes mellitu s (GDM) acute April 13, 2025 1 2:32pm Hx gestational diabetes acute J [facility] 2024 12:32pm LGA (large for gestational a ge) fetus acute April 13, 2025 1 2:32pm Polyhydramnios affecting acute April 13, 2025 1 2:32pm acute April 13, 2025 12:32pm Supervision of normal acut e April 13, 2025 12:32pm Gestational diabetes mellitu s (GDM) acute April 22, 2025 1:31pm Hx gestational diabetes acute [facility] 2024 1:31pm LGA (large for gestational a ge) fetus acute April 22, 2025 1:31pm Polyhydramnios affecting acute April 22, 2025 1:31pm acute April 22 1:31pm Supervision of normal acut e April 22, 2025 1:31pm [facility] Work Phone: [phone]) 977-354906-10-2025 Evaluation note* Diagnosis Onset Date Resolution Status Admit Date Hx gestational diabetes [facility] 20[facility] 10:57am LGA (large for gestational a ge) fetus acute March 22, 2025 10:57am Polyhydramnios affecting acute March 22, 2025 10:57am acute March 22 10:57am Supervision of normal acut e March 22, 2025 10:57am Gestational diabetes mellitu s (GDM) acute April 01, 2025 3:56pm Hx gestational diabetes acute [facility] 2024 3:56pm LGA (large for gestational a ge) fetus acute April 01, 2025 3:56pm Polyhydramnios affecting acute April 01, 2025 3:56pm acute April 01 3:56pm Supervision of normal acut e April 01, 2025 3:56pm Gestational diabetes mellitu s (GDM) acute April 07, 2025 1:36pm Hx gestational diabetes acute [facility] 2024 1:36pm LGA (large for gestational a ge) fetus acute April 07, 2025 1:36pm Polyhydramnios affecting acute April 07, 2025 1:36pm acute April 07 1:36pm Supervision of normal acut e April 07, 2025 1:36pm Gestational diabetes mellitu s (GDM) acute April 13, 2025 1 2:32pm Hx gestational diabetes acute J [facility] 2024 12:32pm LGA (large for gestational a ge) fetus acute April 13, 2025 1 2:32pm Polyhydramnios affecting acute April 13, 2025 1 2:32pm acute April 13, 2025 12:32pm Supervision of normal acut e April 13, 2025 12:32pm Gestational diabetes mellitu s (GDM) acute [facility], 2025 1:31pm Hx gestational diabetes acute J jane 2024 1:31pm LGA (large for gestational a ge) fetus acute April 22, 2025 1:31pm Polyhydramnios affecting acute April 22, 2025 1:31pm acute April 22 1:31pm Supervision of normal acut e April 22, 2025 1:31pm Gestational diabetes mellitu s (GDM) acute April 27, 2025 12:53pm Hx gestational diabetes acute J jane 2024 12:53pm LGA (large for gestational a ge) fetus acute April 27, 2025 12:53pm Polyhydramnios affecting acute April 27, 2025 12:53pm acute April 27 12:53pm Supervision of normal acut e April 27, 2025 12:53pm [facility] Work Phone: 1(782) 451-336506-10-2025 Progress [facility] [address] [place] [address], [address] [place] [address] OFFICE VISIT Date of Service: 03/22/25 MR#: [id number] Acct: [id number] Name: LAURIE RIGGS Rep #: [id number] : 1990 Provider: VICKY Clinton Age/Sex: 35/F Location[place] [facility] [place] Status: Signed Intake Vital Signs 03/22/25 11:00 Height 5 ft 3 in Weight: 153 lb 4 oz BMI 27.1 BP 115/69 Intake Visit Reasons: 32wk OB co-care Gas Meter Checker Required: No Is patient in pain?: No Feel stressed/tense/nervous/anxious/difficulty sleeping: not at all Allergies No Known Allergies Allergy (Unverified 03/22/25 11:05) Medications ?Medication ?Instructions ?Recorded ?Confirmed ?Type docosahexaenoic acid 200 mg mg PO 03/11/25 03/22/25 Hi story capsule ( DHA) ferrous sulfate 325 mg (65 mg 325 mg PO QDAY 03/11/25 03/22/25 History iron) tablet (Feosol) Last Menstrual Period: 08/03/24 Zika: Zika virus screening: Negative : No PFSH PFSH Surgical History H/O eye surgery History of tonsillectomy and adenoidectomy Social History (Updated 03/11/25 @ 11:50 by Sandra Sorensen RN) adopted: No household members: spouse and children housing: house number of children: 5 service: No current occupation: [employer] current occupational exposures/hazards: No pets and animals: Yes pets and animals: dog(s) and farm animals history of recent travel: No sexually active: No Smoking Status: Never smoker second hand exposure: No alcohol intake: never substance use type: does not use well-balanced diet: daily or most days caffeine: No eating out: rarely or never during the past year weight has: remained stable what type of physical activity do you participate in: walking frequency: 5-6 times per week duration: 45-60 minutes/day milady/sikh: Presybeterian seatbelt use: sometimes do you feel safe at home: Yes additional social history: : Reynaldo Burger - Farm History 6 Elective abortions Hx Para 5 Spontaneous abortions 0 Hx # Term Pregnancies 5 Ectopic pregnancies Hx # Pregnancies Multiple births # of living children 5 Past Pregnancies Del. Date Name GA/Weeks Outcome Route Bth Weight Infant Gen Labor Lgth Anesthesia Del Locatn Provider FOB 10/03/12 Doron 40 live - full term 8lbs 6oz Male no ne Home Reynaldo Burger 12/20/13 Sarah 40 live - full term 7lbs 7oz Female none Home Reynaldo Burger 12/15/16 Dominic 40 live - full term 8lbs 8oz Female none [facility] Reynaldo Burger 11/02/19 Elizabeth 40 live - full term 7lbs 7oz Female none [facility] Reynaldo Burger 04/04/22 Sade 40 live - full term 7lbs 14oz Female none Home Reynaldo Burger Delivery Date: 11/02/19 Last Updated by: Sandra Sorensen RN Midwife instructed her to watch her BS HPI 32wk OB co-care Details: LAURIE RIGGS is a 35 year old who presents for routine OB visit. OB Visit CALEB Calculator Estimated Delivery Date Method Current WG Current Estimate 05/10/25 Manual 33w 0d Expected Delivery Route/Plan Labor Preferences- CB/BF classes: [] labor support person: [] labor intervention preferences: [] pain management options preferred: [] cut cord/dad catch: [] : [] PP control planned: [] discussed possible routes of delivery and associated risks: [] special requests: [] Specific Issue/Plans Covid status: [] Flu vaccine: [] Tdap vaccine: [] Rhogam: [] LARC form signed: [] Problem list reviewed and updated with the most current plan of care details and appropriate ordersplaced. Relevant counseling for the gestational age provided. Continue routine care and follow up unless otherwise noted in visit notes/problem list details Initial Weight: Not Recorded Date -?-?-?-?-?-?-?-?-?-?-?-?- EGA Weight BP Urine Prot -?-?-?-?-?-?-?-?-?-?-?-?- Glucose FHR FuHt Pres Dilation -?-?-?-?-?-?-?-?-?-?-?-?- Effaced St Visit Note 03/22/25 -?-?-?-?-?-?-?-?-?-?-?-?- 33w 0d 153 lb 4 oz 115/69 Nega tive -?-?-?-?-?-?-?-?-?-?-?-?- Negative 140 36 -?-?-?-?-?-?-?-?-?-?-?-?- KW- Transfer of care from Malena Wiley. Growth US done and EFW 100%. Had regular menses and was certain of LMP-did not have an early US. NOB labs today. KW- Transfer of care from Nkechi Wiley. Growth US done and EFW 100%. Had regular menses and was certain of LMP-did not have an early US. NOB labs today. Has been tracking BS for last 2 months and has had elevated numbers. Declining glucose testing and will continue to monitor foranother week with new monitor (BS are well controlled with new readings) Discussed needing possiblemedications if elevated numbers. GDM vs wrong dates. ACOG First Trimester First Trimester: Desire for , Alcohol, Tobacco Cessation, Illicit/Recreational Drug/Substance Use, Intimate Partner Violence, Barriers to care, Unstable Housing, Communication Barriers, Environmental/Work Hazards, Anticipated Course of Care, Toxoplasmosis Precations, Use of Any med ications, Sexual activity, Exercise, Dental Care, Sauna/Hot tub use, Seat Belt use, Childbirth classes/Hospital facilities, Travel, Indications for Ultrasound and Screening for Aneuploidy; Discussed ROS Const Reports system reviewed and no additional complaints, except as documented Eyes Reports system reviewed and no additional complaints, except as documented ENT Reports system reviewed and no additional complaints, except as documented Card Reports system reviewed and no additional complaints, except as documented Resp Reports system reviewed and no additional complaints, except as documented GI Reports system reviewed and no additional complaints, except as documented, Denies nausea and Denies vomiting Reports system reviewed and no additional complaints, except as documented Musc Reports system reviewed and no additional complaints, except as documented Skin/Breast Reports system reviewed and no additional complaints, except as documented Neuro Yes system reviewed and no additional complaints, except as documented Psych Reports system reviewed and no additional complaints, except as documented Endo Reports system reviewed and no additional complaints, except as documented Waqar/Lymph Reports system reviewed and no additional complaints, except as documented Aller/Immun Reports system reviewed and no additional complaints, except as documented Exam Const General: cooperative, healthy appearing and no acute distress Orientation: alert, awake and oriented x3 Neck Neck: normal visual inspection and full ROM Resp Effort & Inspection: normal respiratory effort, able to speak in complete sentences and symmetric chest movement GI Inspection: normal to inspection Palpation: soft and other Other: gravid Skin General: no rashes or lesions noted Neuro General: patient alert, patient awake and patient oriented x3 Cognition: normal cognition Speech: speech normal Gait: normal gait Motor: muscle tone normal throughout Extrem General: normal to inspection and full ROM Psych Appearance: grossly normal Mental Status: mental status grossly normal Mood: congruent mood Affect: normal affect Speech and Movement: speech and movement normal Attitude: cooperative Thought Process: normal Thought Content: normal Judgment: judgment good Results POC Urinalysis 2 Dip (Clinic) Office Urine Glucose Negative Last Edit by Ana Kat on 03/22/25 11:45 Office Urine Protein Negative Last Edit by Ana Kat on 03/22/25 11:45 Coding Level of Care Code OB Routine Diagnoses LGA (large for gestational age) fetus Hx gestational diabetes Z86.32 Supervision of normal Z34.90 33 weeks gestation of Z3A.33 Weeks of gestation: 33 weeks Polyhydramnios affecting O40.9XX0 Assessment and Plan Assessment and Plan (1) LGA (large for gestational age) fetus: Status: Acute Comment: EFW 98%, AC 100% 32 wk (2) Hx gestational diabetes: Status: Acute (3) Supervision of normal : Status: Acute Comment: , CALEB 05/10/25, PC: Sarah Sal Andrea, Emily & Sade, : Reynaldo Burger (4) : Status: Acute Qualifiers: Weeks of gestation: 33 weeks Qualified Code(s): Z3A.33 - 33 weeks gestation of Comment: [Co-Care w/Malena Wiley, RON @ 31wks] No genetic/carrier testing done (5) Polyhydramnios affecting : Status: Acute Comment: WEI 25 Orders: Orders POC Urinalysis 2 Dip (Clinic) Today Plan Details Additional Comments: ACOG trimester education reviewed and updated. see problem list details for updated plan management information and see below for orders placed atthis visit. GA appropriate handout given. 03/22/25 1146 s CNM> Date _ Lauren Clinton CNM Cosigner Signature: Date (if applicable) CC: ~ [facility]06-02-2025 Radiology Diagnostic study note [facility] Imaging Services [address], [place] [id number] OB Limited With Biometrics MR#: [id number] Acct: [id number] Name: LAURIE RIGGS Rep #: [id number] : 1990 F 35 From: Yue Reid MD PCP: Care Physician,No Primary Status: REG CLI Study:OB Limited With Biometrics Date of Exam : 03/14/25 Exam# [id number] Ordering Dr: Julieta Sotelo DO PROCEDURE: OB LIMITED WITH BIOMETRICS 03/14/2025 REASON FOR EXAM: GROWTH TECHNIQUE: High resolution obstetric ultrasound performed using a 2D transducer. 3D imaging was also performedand reviewed. Standard views obtained, including biometry, anatomy survey, and Doppler studies. COMPARISON: None FINDINGS Number: 1 Position: Cephalic Placental Position: Anterior Placental Abnormalities: None Cervix to placenta distance measures 5.5 cm. DIMENSIONS: Biparietal Diameter: 8.6 cm/34 weeks 3 days +/-22 days/97th percentile Head Circumference: 31.4 cm/35 weeks 2 days +/-21 days/93rd percentile Abdominal Circumference: 32.0 cm/36 weeks 0 days +/-21 days/100 percentile Femur Length: 6.2 cm/32 weeks 1 day +/-21 days/43rd percentile ESTIMATED WEIGHT: 2511 +/-377 g ESTIMATED WEIGHT PERCENTILE (24+ weeks): 98.93% ESTIMATED GESTATIONAL AGE: Baseline: 31 weeks 6 days By Ultrasound: 34 weeks 5 days ESTIMATED DATE OF DELIVERY: Baseline: 05/10/2025 By Ultrasound: 04/20/2025 BIOPHYSICAL ASSESSMENT: Amniotic Fluid Index: 25.0 Cm (8-24 cm normal range) Heart rate: 138-140 beats per minute MATERNAL ANATOMY: Adnexa: Neither maternal ovary is successfully identified. Cervical Length (if measured): 4.1 cm US/OB Limited With Biometrics IMPRESSION: Single living intrauterine fetus, large for gestational age with estimated fetalweight in the 99th percentile. This finding could be overestimated given that additional biometry measurements are also elevated. However, in the setting of a slightly elevated amniotic fluid index at 25 cm, findings are concerning for macrosomia. Recommend comparison with prior exams if available, and close clinical and imaging follow-up. Reading Location: [facility] CC: Dr. Julieta Huffman DO; No Primary Care Physician ~ Hook Up: [facility] Future App[facility]ments Appointment Date:12/04/2021 10:30:00 AM Scheduled Provider:ELEANOR ESTRADA Location[facility] Appointment Type: OV OB Routine Follow Up Diagnostic Tests Pending * HPV Screen, DNA Probe 11/06/21 Future Scheduled Tests Laboratory* Type and Screen (AO) 11/06/21 * Glucose 1 Hour Challenge 11/06/21 * Hepatitis B Surface Antigen 11/06/21 * Rapid Plasma Reagin Test 11/06/21 * Rubella Antibody 11/06/21 * Urine Culture 11/06/21 * A1C Hemoglobin 11/06/21 * Complete Blood Count 11/06/21 * Hepatitis C Antibody IgG 11/06/21 * HIV 1/2 Ab 11/06/21 * Varicella Zoster Antibody 11/06/21 * Complete Metabolic Panel 11/06/21 [facility] Evaluation noteNo assessment information available [facility] Work Phone: Evaluation note* Diagnosis Onset Date Resolution Status Admit Date Hx gestational diabetes acute J 2024 10:57am LGA (large for gestational a ge) fetus acute March 22, 2025 10:57am Polyhydramnios affecting acute March 22, 2025 10:57am acute March 22 10:57am Supervision of normal acut e March 22, 2025 10:57am [facility] Work Phone: Hospital course Narrative No data available for this section [facility] Hospital Discharge instructions No data available for this section [facility] Progress note Author Lauren Clinton [facility] Note Date/Time March 22, 2025 11:4 6am [facility] [address] [place] [address], [address] [place] [address] OFFICE VISIT Date of Service: 03/22/25 MR#: [id number] Acct: [id number] Name: RIGGSLAURIE Rep #: [id number] : 1990 Provider: VICKY Clinton Age/Sex: 35/F [place] [facility] Status: Signed Intake Vital Signs 03/22/25 11:00 Height 5 ft 3 in Weight: 153 lb 4 oz BMI 27.1 BP 115/69 Intake Visit Reasons: 32wk OB co-care Gas Meter Checker Required: No Is patient in pain?: No Feel stressed/tense/nervous/anxious/difficulty sleeping: not at all Allergies No Known Allergies Allergy (Unverified 03/22/25 11:05) Medications ?Medication ?Instructions ?Recorded ?Confirmed ?Type docosahexaenoic acid 200 mg mg PO 03/11/25 03/22/25 Hi story capsule ( DHA) ferrous sulfate 325 mg (65 mg 325 mg PO QDAY 03/11/25 03/22/25 History iron) tablet (Feosol) Last Menstrual Period: 08/03/24 Zika: Zika virus screening: Negative : No PFSH PFSH Surgical History H/O eye surgery History of tonsillectomy and adenoidectomy Social History (Updated 03/11/25 @ 11:50 by Sandra Sorensen RN) adopted: No household members: spouse and children housing: house number of children: 5 service: No current occupation: [employer] current occupational exposures/hazards: No pets and animals: Yes pets and animals: dog(s) and farm animals history of recent travel: No sexually active: No Smoking Status: Never smoker second hand exposure: No alcohol intake: never substance use type: does not use well-balanced diet: daily or most days caffeine: No eating out: rarely or never during the past year weight has: remained stable what type of physical activity do you participate in: walking frequency: 5-6 times per week duration: 45-60 minutes/day milady/sikh: Presybeterian seatbelt use: sometimes do you feel safe at home: Yes additional social history: : Reynaldo Burger - Jhon History 6 Elective abortions Hx Para 5 Spontaneous abortions 0 Hx # Term Pregnancies 5 Ectopic pregnancies Hx # Pregnancies Multiple births # of living children 5 Past Pregnancies Del. Date Name GA/Weeks Outcome Route Bth Weight Infant Gen Labor Lgth Anesthesia Del Locatn Provider FOB 10/03/12 Doron 40 live - full term 8lbs 6oz Male no ne Home Reynaldo Burger 12/20/13 Sarah 40 live - full term 7lbs 7oz Female none [place] Reynaldo Burger 12/15/16 Dominic 40 live - full term 8lbs 8oz Female none [facility] David 11/02/19 Elizabeth 40 live - full term 7lbs 7oz Female none [place] Krystin Burger 04/04/22 Sade 40 live - full term 7lbs 14oz Female none Home Reynaldo Burger Delivery Date: 11/02/19 Last Updated by: Sandra Sorensen, preventive medicine physician instructed her to watch her BS HPI 32wk OB co-care Details: LAURIE RIGGS is a 35 year old who presents for routine OB visit. OB Visit CALEB Calculator Estimated Delivery Date Method Current WG Current Estimate 05/10/25 Manual 33w 0d Expected Delivery Route/Plan Labor Preferences- CB/BF classes: [] labor support person: [] labor intervention preferences: [] pain management options preferred: [] cut cord/dad catch: [] : [] PP control planned: [] discussed possible routes of delivery and associated risks: [] special requests: [] Specific Issue/Plans Covid status: [] Flu vaccine: [] Tdap vaccine: [] Rhogam: [] LARC form signed: [] Problem list reviewed and updated with the most current plan of care details and appropriate orders placed. Relevant counseling for the gestational age provided. Continue routine care and follow up unless otherwise noted in visit notes/problem list details Initial Weight: Not Recorded Date -?-?-?-?-?-?-?-?-?-?-?-?- EGA Weight BP Urine Prot -?-?-?-?-?-?-?-?-?-?-?-?- Glucose FHR FuHt Pres Dilation -?-?-?-?-?-?-?-?-?-?-?-?- Effaced St Visit Note 03/22/25 -?-?-?-?-?-?-?-?-?-?-?-?- 33w 0d 153 lb 4 oz 115/69 Nega tive -?-?-?-?-?-?-?-?-?-?-?-?- Negative 140 36 -?-?-?-?-?-?-?-?-?-?-?-?- KW- Transfer of care from Malena Wiley. Growth US done and EFW 100%. Had regular menses and was certain of LMP-did not have an early US. NOB labs today. KW- Transfer of care from Nkechi lantigua Saurabh. Growth US done and EFW 100%. Had regular menses and was certain of LMP-did not have an early US. NOB labs today. Has been tracking BS for last 2 months and has had elevated numbers. Declining glucose testing and will continue to monitor for another week with new monitor (BS are well controlled with new readings) Discussed needing possible medications if elevated numbers. GDM vs wrong dates. ACOG First Trimester First Trimester: Desire for , Alcohol, Tobacco Cessation, Illicit/Recreational Drug/Substance Use, Intimate Partner Violence, Barriers to care, Unstable Housing, Communication Barriers, Environmental/Work Hazards, Anticipated Course of Care, Toxoplasmosis Precations, Use of Any medications, Sexual activity, Exercise, Dental Care, Sauna/Hot tub use, Seat Belt use, Childbirth classes/Hospital facilities, Travel, Indications for Ultrasound and Screening for Aneuploidy; Discussed ROS Const Reports system reviewed and no additional complaints, except as documented Eyes Reports system reviewed and no additional complaints, except as documented ENT Reports system reviewed and no additional complaints, except as documented Card Reports system reviewed and no additional complaints, except as documented Resp Reports system reviewed and no additional complaints, except as documented GI Reports system reviewed and no additional complaints, except as documented, Denies nausea and Denies vomiting Reports system reviewed and no additional complaints, except as documented Musc Reports system reviewed and no additional complaints, except as documented Skin/Breast Reports system reviewed and no additional complaints, except as documented Neuro Yes system reviewed and no additional complaints, except as documented Psych Reports system reviewed and no additional complaints, except as documented Endo Reports system reviewed and no additional complaints, except as documented Waqar/Lymph Reports system reviewed and no additional complaints, except as documented Aller/Immun Reports system reviewed and no additional complaints, except as documented Exam Const General: cooperative, healthy appearing and no acute distress Orientation: alert, awake and oriented x3 Neck Neck: normal visual inspection and full ROM Resp Effort & Inspection: normal respiratory effort, able to speak in complete sentences and symmetric chest movement GI Inspection: normal to inspection Palpation: soft and other Other: gravid Skin General: no rashes or lesions noted Neuro General: patient alert, patient awake and patient oriented x3 Cognition: normal cognition Speech: speech normal Gait: normal gait Motor: muscle tone normal throughout Extrem General: normal to inspection and full ROM Psych Appearance: grossly normal Mental Status: mental status grossly normal Mood: congruent mood Affect: normal affect Speech and Movement: speech and movement normal Attitude: cooperative Thought Process: normal Thought Content: normal Judgment: judgment good Results POC Urinalysis 2 Dip (Clinic) Office Urine Glucose Negative Last Edit by Ana Kat on 03/22/25 11:45 Office Urine Protein Negative Last Edit by Ana Kat on 03/22/25 11:45 Coding Level of Care Code OB Routine Diagnoses LGA (large for gestational age) fetus Hx gestational diabetes Z86.32 Supervision of normal Z34.90 33 weeks gestation of Z3A.33 Weeks of gestation: 33 weeks Polyhydramnios affecting O40.9XX0 Assessment and Plan Assessment and Plan (1) LGA (large for gestational age) fetus: Status: Acute Comment: EFW 98%, AC 100% 32 wk (2) Hx gestational diabetes: Status: Acute (3) Supervision of normal : Status: Acute Comment: , CALEB 05/10/25, PC: Sarah Sal Andrea, Emily & Sade, : Reynaldo Burger (4) : Status: Acute Qualifiers: Weeks of gestation: 33 weeks Qualified Code(s): Z3A.33 - 33 weeks gestation of Comment: [Co-Care w/Malena Wiley, RON @ 31wks] No genetic/carrier testing done (5) Polyhydramnios affecting : Status: Acute Comment: WEI 25 Orders: Orders POC Urinalysis 2 Dip (Clinic) Today Plan Details Additional Comments: ACOG trimester education reviewed and updated. see problem list details for updated plan management information and see below for orders placed at this visit. GA appropriate handout given. 03/22/25 1146 <Electronically signed by Lauren house CNM> Date _ Lauren Clinton CNM Cosigner Signature: Date (if applicable) CC: ~ [facility] Work Phone: Progress note Author Rhonda Fleming [facility] Note Date/Time April 27, 2025 1:44 pm [facility] [address], [address] [place] [address] OFFICE VISIT Date of Service: 04/27/25 MR#: [id number] Acct: [id number] Name: LAURIE RIGGS Rep #: [id number] : 1990 Provider: Dr. Ministerio Fleming MD Age/Sex: 35/F Location[place] [facility] [place] Status: Signed Intake Vital Signs 04/01/25 16:00 04/22/25 13:38 04/27/25 13:03 Height 5 ft 3 in 5 ft 3 in 5 ft 3 in Weight: 149 lb 2 oz 147 lb 6 oz BMI 26.4 26.1 BP 123/67 H 116/68 Intake Visit Reasons: 38wk ob/nst Gas Meter Checker Required: No Is patient in pain?: No Allergies No Known Allergies Allergy (Verified 04/27/25 13:04) Medications ?Medication ?Instructions ?Recorded ?Confirmed ?Type docosahexaenoic acid 200 mg mg PO 03/11/25 04/27/25 Hi story capsule ( DHA) ferrous sulfate 325 mg (65 mg 325 mg PO QDAY 03/11/25 04/27/25 History iron) tablet (Feosol) metformin 500 mg tablet 500 mg PO BID #60 tabs 04/1304/27/25 Rx Last Menstrual Period: 08/03/24 Zika: Zika virus screening: Negative : No PFSH PFSH Surgical History H/O eye surgery History of tonsillectomy and adenoidectomy Social History adopted: No household members: spouse and children housing: house number of children: 5 current occupation: [employer] current occupational exposures/hazards: No pets and animals: Yes pets and animals: dog(s) and farm animals history of recent travel: No sexually active: No Smoking Status: Never smoker second hand exposure: No alcohol intake: never substance use type: does not use well-balanced diet: daily or most days caffeine: No eating out: rarely or never during the past year weight has: remained stable what type of physical activity do you participate in: walking frequency: 5-6 times per week duration: 45-60 minutes/day milady/sikh: [employer]ian seatbelt use: sometimes do you feel safe at home: Yes additional social history: : Reynaldo Burger - Jhon History 6 Elective abortions Hx Para 5 Spontaneous abortions 0 Hx # Term Pregnancies 5 Ectopic pregnancies Hx # Pregnancies Multiple births # of living children 5 Past Pregnancies Del. Date Name GA/Weeks Outcome Route Bth Weight Infant Gen Labor Lgth Anesthesia Del Locatn Provider FOB 10/03/12 Doron 40 live - full term 8lbs 6oz Male no ne Home Reynaldo Burger 12/20/13 Sarah 40 live - full term 7lbs 7oz Female none Home Reynaldo Burger 12/15/16 Dominic 40 live - full term 8lbs 8oz Female none [facility] Reynaldo Burger 11/02/19 Elizabeth 40 live - full term 7lbs 7oz Female none [facility] Reynaldo Burger 04/04/22 Sade 40 live - full term 7lbs 14oz Female none Home Reynaldo Burger Delivery Date: 11/02/19 Last Updated by: Sandra Sorensen preventive medicine physician instructed her to watch her BS HPI 38wk ob/nst Details: LAURIE RIGGS is a 35 year old who presents for routine OB visit. OB Visit CALEB Calculator Estimated Delivery Date Method Current WG Current Estimate 05/10/25 LMP (Certain) 38w 1d Other Estimates 05/10/25 Manual 38w 1d Expected Delivery Route/Plan Labor Preferences- CB/BF classes: [] labor support person: [] labor intervention preferences: [] pain management options preferred: [] cut cord/dad catch: [] : [] PP control planned: [] discussed possible routes of delivery and associated risks: [] special requests: [] Specific Issue/Plans Covid status: [] Flu vaccine: [] Tdap vaccine: [] Rhogam: [] LARC form signed: [] Problem list reviewed and updated with the most current plan of care details and appropriate orders placed. Relevant counseling for the gestational age provided. Continue routine care and follow up unless otherwise noted in visit notes/problem list details Initial Weight: Not Recorded Date -?-?-?-?-?-?-?-?-?-?-?-?- EGA Weight BP Urine Prot -?-?-?-?-?-?-?-?-?-?-?-?- Glucose FHR FuHt Pres Dilation -?-?-?-?-?-?-?-?-?-?-?-?- Effaced St Visit Note 03/22/25 -?-?-?-?-?-?-?-?-?-?-?-?- 33w 0d 153 lb 4 oz 115/69 Nega tive -?-?-?-?-?-?-?-?-?-?-?-?- Negative 140 36 -?-?-?-?-?-?-?-?-?-?-?-?- KW- Transfer of care from Malena Saurabh. Growth US done and EFW 100%. Had regular menses and was certain of LMP-did not have an early US. NOB labs today. KW- Transfer of care from Nkechi Wiley. Growth US done and EFW 100%. Had regular menses and was certain of LMP-did not have an early US. NOB labs today. Has been tracking BS for last 2 months and has had elevated numbers. Declining glucose testing and will continue to monitor for another week with new monitor (BS are well controlled with new readings) Discussed needing possible medications if elevated numbers. GDM vs wrong dates. 04/01/25 -?-?-?-?-?-?-?-?-?-?-?-?- 34w 3d 149 lb 2 oz 123/71 Nega tive -?-?-?-?-?-?-?-?-?-?-?-?- Negative 145 36 -?-?-?-?-?-?-?-?-?-?-?-?- SM- no vb lof go od fm no regular ctx 04/07/25 -?-?-?-?-?-?-?-?-?-?-?-?- 35w 2d 149 lb 4 oz 115/66 Nega tive -?-?-?-?-?-?-?-?-?-?-?-?- Negative 140 -?-?-?-?-?-?-?-?-?-?-?-?- MH-NST only reac tive 04/13/25 -?-?-?-?-?-?-?-?-?-?-?-?- 36w 1d 147 lb 6 oz 107/65 Nega tive -?-?-?-?-?-?-?-?-?-?-?-?- Negative 140 37 Cephalic 2 .5 -?-?-?-?-?-?-?-?-?-?-?-?- 70 -2 JV- nst re active. Fasting glucose levels still elevated. patient states she is eating no carbs and walking often. will start 500 bid metformin. She states that she is grateful for the medication because she feels like she is starving. GBS today. formal scan resutls pending. WEI 21. AC 92nd% EFW at 3 9weeks will be 8-9 pounds JV- nst reactive. Fasting gl ucose levels still elevated. patient states she is eating no carbs and walking often. will start 500 bid metformin. She states that she is grateful for the medication because she feels like she is starving. GBS today. formal scan resutls pending. WEI 21. AC 92nd% EFW at 3 9weeks will be 8-9 pounds. explained that will need twice weekly nsts but does not want to do that. She will keep friday's appt and we will discuss more. she may delivery soon as is already gomez and is 2-3 cm dilated. 04/22/25 -?-?-?-?-?-?-?-?--?-?-?-?- 37w 3d 149 lb 2 oz 123/67 Nega tive -?-?-?-?-?-?-?-?-?-?-?-?- Negative 135 37 Cephalic -?-?-?-?-?-?-?-?-?-?-?-?- KW- No vb/lof/ct x. good fm. NST reactive. growth US reviewed. blood sugars reviewed and fastings look better. all under 95/120. IOL set up for 05/03. will need orders sent next visit based on SVE. 04/27/25 -?-?-?-?-?-?-?-?-?-?-?-?- 38w 1d 147 lb 6 oz 116/68 Nega tive -?-?-?-?-?-?-?-?-?-?-?-?- Negative 135 Cephalic 3.5 -?-?-?-?-?-?-?-?-?-?-?-?- 70 -1 SM- no vb lof good fm no regular ctx ACOG First Trimester First Trimester: Desire for , Alcohol, Tobacco Cessation, Illicit/Recreational Drug/Substance Use, Intimate Partner Violence, Barriers to care, Unstable Housing, Communication Barriers, Environmental/Work Hazards, Anticipated Course of Care, Toxoplasmosis Precations, Use of Any medications, Sexual activity, Exercise, Dental Care, Sauna/Hot tub use, Seat Belt use, Childbirth classes/Hospital facilities, Travel, Indications for Ultrasound and Screening for Aneuploidy; Discussed Office Procedures Non-stress Test Non-Stress Test Indications for Monitoring: Yes diabetes Heart Rate Baseline: 135 Heart Rate Variability: moderate Movement: Present Heart Rate Accelerations: Present Decelerations: Absent Contractions: Absent Impression: Yes Reactive Non-Stress Test Category 1 Results POC Urinalysis 2 Dip (Clinic) Office Urine Glucose Negative Last Edit by Ana Kat on 04/27/25 13:12 Office Urine Protein Negative Last Edit by Ana Kat on 04/27/25 13:12 Coding Level of Care Code OB Routine Diagnoses Diet controlled gestational diabetes mellitus (GDM) in third trimester O24.410 Gestational diabetes mellitus control: diet-controlled Trimester: third trimester Polyhydramnios affecting O40.9XX0 LGA (large for gestational age) fetus Hx gestational diabetes Z86.32 Encounter for supervision of other normal in third trimester Z34.83 Normal : other normal Trimester: third trimester 38 weeks gestation of Z3A.38 Weeks of gestation: 38 weeks CPT Codes Non-Stress Test (01016) Assessment and Plan Assessment and Plan (1) Gestational diabetes mellitus (GDM): Status: Acute Qualifiers: Gestational diabetes mellitus control: diet-controlled Trimester: third trimester Qualified Code(s): O24.410 - Gestational diabetes mellitus in , diet controlled Comment: diet controlled. continue to monitor growth US 36 weeks. metformin started 04/13/25- patient declines to come in twice a week for nsts. will do only once a week (2) Polyhydramnios affecting : Status: Acute Comment: WEI 25 weekly nsts until delivery, deliver 39 weeks (3) LGA (large for gestational age) fetus: Status: Acute Comment: EFW 98%, AC 100% 32 wk (4) Hx gestational diabetes: Status: Acute (5) Supervision of normal : Status: Acute Qualifiers: Normal : other normal Trimester: third trimester Qualified Code(s): Z34.83 - Encounter for supervision of other normal , third trimester Comment: Neg gbs PRR (waiting on gcc) , CALEB 05/10/25, PC: Sarah Sal Andrea, Emily & Sade, : Reynlado Burger (6) : Status: Acute Qualifiers: Weeks of gestation: 38 weeks Qualified Code(s): Z3A.38 - 38 weeks gestation of Comment: [Co-Care w/Malena Wiley, RON @ 31wks] No genetic/carrier testing done Orders: Orders POC Urinalysis 2 Dip (Clinic) Today OB NST Today O24.410 - Gestational diabetes mellitus in , diet controlled, O40.9XX0 - Polyhydramnios, unspecified trimester, not applicable or unspecified 04/27/25 1344 <Electronically signed by Rhonda mata MD> Date _ Rhonda Fleming MD Cosign Signature: Date (if applicable) CC: ~ [facility] Work Phone: Reason for referral (narrative)No reason for referral information availableW[facility] Work Phone: Assessments Diagnosis Sensation of lump in throat - Primary Swelling, mass, or lump in head and neck Post-nasal drip Postnasal drip Laryngeal pachyderma Gastroesophageal reflux dise ase, esophagitis presence not specified Diagnosis Rectal polyp- Primary Anal and rectal polyp Diagnosis Rectal polyp- Primary Anal and rectal polyp Diagnosis Anal polyp- Primary Anal and rectal polyp Reason for Referral Status Reason Specialty Diagnoses / Procedures Referred By Contact Referred To Contact Closed General Surgery Diagnoses Rectal polyp Marlin Springer MD [address] [id number] Carlos Begum MD [address] [place] [address] History of Present Illness * Carlos Begum MD - 11/19/2018 3:14 PM EST This delightful 28-year-old female complains of fairly chronic constipation. She also reports that she has had hemorrhoid problems since the of her child about 1-1/2 years ago. For quite some time now, she has had a mass protrude from the anus after bowel movements that she then has to push back in. It does not come out any other time. It is not painful. She does however, have some pain with bowel movements and afterwards sometimes that she describes as may be a tear. At those times she might see a little blood. She was seen by Dr. Springer and a polypoid lesion was identified. Exam: Externally, no abnormalities are appreciated. There are no tags or external hemorrhoids. Digital examination was notable for a round polypoid mass that is approximately 1.5 cm in diameter.It is clearly on a stalk but I was able to deliver it into the anal verge. It has a whitish appearance. I could not bring it out enough to actually appreciate the stock myself. I recommend that this be removed so that it can be sent for histologic analysis as opposed to considering rubberbanding. I fully expect that it will be benign but it warrants evaluation. I offered that this could be done at the [place] office where we have the proper exam table and instruments todo this, or it could be done in the operating room. She is concerned about expense and would prefernot to have to go to the operating room. We will arrange for this in the [place] office. in this encounter* Carlos Begum MD - 12/04/2018 3:54 PM EST Procedure: Digital examination was performed and the polyp was again identified in the left posterior region. The patient reported the digital examination was painful and that she has been having a tearing sensation with bowel movements. She still wished to proceed. The endoscope was introduced without difficulty and the polypoid lesion was identified on a stalk in the right posterior region at 11:00. The stalk was infiltrated with 1% lidocaine. A 3-0 Vicryl tiewas placed around the stalk without difficulty. The polypoid lesion was then excised above the ligature. It was sent for permanent pathology. The patient tolerated the procedure well. The patient was given home-going instructions with regard to the excision and with regard to possible fissure. We will contact her with pathology results. If this is hemorrhoidal in nature, likely no further treatment is necessary. If this is a true polyp, she likely will need colonoscopy to evaluate for other polyps. Provided there is no need for colonoscopy, and if she is doing well, she prefers to follow-up as needed. in this encounter* Carlos Begum MD - 01/05/2019 2:18 PM EDT The lesion on his back and I have to push it in again. About a week ago she began to notice something sticking out again after having felt like things were better. She has some pain as well. Exam: On digital exam, I can clearly feel another polypoid lesion on a stalk from the left far posterior area. Without difficulty was able to deliver it through the anal canal. It has a similar appearance to the other one. We discussed rubberbanding, but we have no rubber banding equipment available today. She asked if I would be willing to excise it like the previous one. The polypoid lesion was held under tension completely out of the anal canal. The stalk was then anesthetized with 1% lidocaine. Was then ligated with 3-0 Vicryl and the polypoid lesion was excised above the ligature. It is similar in appearance to the previous one and will be discarded. The patient tolerated the procedure well. She wishes to follow-up as needed. in this encounter Advance Directives Patient has advance care planning documents on file. For more information, please contact: [place] [address] Patient has advance care planning documents on file. For more information, please contact: [place] [address] No Advanced Directives Records Found Patient has advance care planning documents on file. For more information, please contact: [place] [address] No Advanced Directives Records FoundNo Advanced Directives Records FoundNo Advanced Directives Records Found Summary Purpose Family History No Family History Records FoundNo Family History Records FoundNo Family History Records FoundNo Family History Records Found Chief Complaint and Reason for Visit Chief Complaint Admit Date Amb Documentation March 11, 2025 11:39 am GROWTH March 14, 2025 12:20 pm Chief Complaint Admit Date Amb Documentation March 11, 2025 11:39 am GROWTH March 14, 2025 12:20 pm 32wk OB co-care March 22, 2025 10:5 7am Reason for Visit Admit Date Hx gestational diabetes March 22, 2025 10:57am LGA (large for gestational age) fetus Ju 2024 10:57am Polyhydramnios affecting March 22, 2025 10:57am March 22, 2025 10:5 7am Supervision of normal March 10:57am Chief Complaint Admit Date Amb Documentation March 11, 2025 11:39 am GROWTH March 14, 2025 12:20 pm 32wk OB co-care March 22, 2025 10:5 7am 33wk ob per KW *co care April 01, 2025 3:56pm Reason for Visit Admit Date Hx gestational diabetes March 22, 2025 10:57am LGA (large for gestational age) fetus Ju 2024 10:57am Polyhydramnios affecting March 22, 2025 10:57am March 22, 2025 10:5 7am Supervision of normal March 10:57am Gestational diabetes mellitus (GDM) April 01, 2025 3:56pm Hx gestational diabetes April 01, 2025 3:56pm LGA (large for gestational age) fetus Ju 2024 3:56pm Polyhydramnios affecting April 01, 2025 3:56pm April 01, 2025 3:56 pm Supervision of normal March 3:56pm Chief Complaint Admit Date Amb Documentation March 11, 2025 11:39 am GROWTH March 14, 2025 12:20 pm 32wk OB co-care March 22, 2025 10:5 7am 34wk ob per KW *co care April 01, 2025 3:56pm 35wk nst only April 07, 2025 1:36 pm Reason for Visit Admit Date Hx gestational diabetes March 22, 2025 10:57am LGA (large for gestational age) fetus Ju 2024 10:57am Polyhydramnios affecting March 22, 2025 10:57am March 22, 2025 10:5 7am Supervision of normal March 10:57am Gestational diabetes mellitus (GDM) April 01, 2025 3:56pm Hx gestational diabetes April 01, 2025 3:56pm LGA (large for gestational age) fetus Ju 2024 3:56pm Polyhydramnios affecting April 01, 2025 3:56pm April 01, 2025 3:56 pm Supervision of normal March 3:56pm Gestational diabetes mellitus (GDM) April 07, 2025 1:36pm Hx gestational diabetes April 07, 2025 1:36pm LGA (large for gestational age) fetus Ju ne 2024 1:36pm Polyhydramnios affecting April 07, 2025 1:36pm April 07, 2025 1:36 pm Supervision of normal March 1:36pm Chief Complaint Admit Date Amb Documentation March 11, 2025 11:39 am GROWTH March 14, 2025 12:20 pm 32wk OB co-care March 22, 2025 10:5 7am 34wk ob per KW *co care April 01, 2025 3:56pm 35wk nst only April 07, 2025 1:36 pm GROWTH April 13, 2025 8:38a m 36wk ob/nst April 13, 2025 12:32 pm Reason for Visit Admit Date Hx gestational diabetes March 22, 2025 10:57am LGA (large for gestational age) fetus Ju ne 2024 10:57am Polyhydramnios affecting March 22, 2025 10:57am March 22, 2025 10:5 7am Supervision of normal March 10:57am Gestational diabetes mellitus (GDM) April 01, 2025 3:56pm Hx gestational diabetes April 01, 2025 3:56pm LGA (large for gestational age) fetus Ju 2024 3:56pm Polyhydramnios affecting April 01, 2025 3:56pm April 01, 2025 3:56 pm Supervision of normal March 3:56pm Gestational diabetes mellitus (GDM) April 07, 2025 1:36pm Hx gestational diabetes April 07, 2025 1:36pm LGA (large for gestational age) fetus Ju 2024 1:36pm Polyhydramnios affecting April 07, 2025 1:36pm April 07, 2025 1:36 pm Supervision of normal March 1:36pm Gestational diabetes mellitus (GDM) April 13, 2025 12:32pm Hx gestational diabetes April 13, 2025 1 2:32pm LGA (large for gestational age) fetus Ju 2024 12:32pm Polyhydramnios affecting April 13, 2025 12:32pm April 13, 2025 12:32 pm Supervision of normal April 12:32pm Chief Complaint Admit Date Amb Documentation March 11, 2025 11:39 am GROWTH March 14, 2025 12:20 pm 32wk OB co-care March 22, 2025 10:5 7am 34wk ob per KW *co care April 01, 2025 3:56pm 35wk nst only April 07, 2025 1:36 pm GROWTH April 13, 2025 8:38a m 36wk ob/nst April 13, 2025 12:32 pm 37wk ob/nst April 22, 2025 1:31 pm Reason for Visit Admit Date Hx gestational diabetes March 22, 2025 10:57am LGA (large for gestational age) fetus Ju ne 2024 10:57am Polyhydramnios affecting March 22, 2025 10:57am March 22, 2025 10:5 7am Supervision of normal March 10:57am Gestational diabetes mellitus (GDM) April 01, 2025 3:56pm Hx gestational diabetes April 01, 2025 3:56pm LGA (large for gestational age) fetus Ju ne 2024 3:56pm Polyhydramnios affecting April 01, 2025 3:56pm April 01, 2025 3:56 pm Supervision of normal March 3:56pm Gestational diabetes mellitus (GDM) April 07, 2025 1:36pm Hx gestational diabetes April 07, 2025 1:36pm LGA (large for gestational age) fetus Ju ne 2024 1:36pm Polyhydramnios affecting April 07, 2025 1:36pm April 07, 2025 1:36 pm Supervision of normal March 1:36pm Gestational diabetes mellitus (GDM) April 13, 2025 12:32pm Hx gestational diabetes April 13, 2025 1 2:32pm LGA (large for gestational age) fetus Ju ly 2024 12:32pm Polyhydramnios affecting April 13, 2025 12:32pm April 13, 2025 12:32 pm Supervision of normal April 12:32pm Gestational diabetes mellitus (GDM) April 22, 2025 1:31pm Hx gestational diabetes April 22, 2025 1:31pm LGA (large for gestational age) fetus Ju ly 2024 1:31pm Polyhydramnios affecting April 22, 2025 1:31pm April 22, 2025 1:31 pm Supervision of normal April 1:31pm Chief Complaint Admit Date Amb Documentation March 11, 2025 11:39 am GROWTH March 14, 2025 12:20 pm 32wk OB co-care March 22, 2025 10:5 7am 34wk ob per KW *co care April 01, 2025 3:56pm 35wk nst only April 07, 2025 1:36 pm GROWTH April 13, 2025 8:38a m 36wk ob/nst April 13, 2025 12:32 pm 37wk ob/nst April 22, 2025 1:31 pm 38wk ob/nst April 27, 2025 12:5 3pm Reason for Visit Admit Date Hx gestational diabetes March 22, 2025 10:57am LGA (large for gestational age) fetus Ju ne 2024 10:57am Polyhydramnios affecting March 22, 2025 10:57am March 22, 2025 10:5 7am Supervision of normal March 10:57am Gestational diabetes mellitus (GDM) April 01, 2025 3:56pm Hx gestational diabetes April 01, 2025 3:56pm LGA (large for gestational age) fetus Ju ne 2024 3:56pm Polyhydramnios affecting April 01, 2025 3:56pm April 01, 2025 3:56 pm Supervision of normal March 3:56pm Gestational diabetes mellitus (GDM) April 07, 2025 1:36pm Hx gestational diabetes April 07, 2025 1:36pm LGA (large for gestational age) fetus Ju ne 2024 1:36pm Polyhydramnios affecting April 07, 2025 1:36pm April 07, 2025 1:36 pm Supervision of normal March 1:36pm Gestational diabetes mellitus (GDM) April 13, 2025 12:32pm Hx gestational diabetes April 13, 2025 1 2:32pm LGA (large for gestational age) fetus Ju ly 2024 12:32pm Polyhydramnios affecting April 13, 2025 12:32pm April 13, 2025 12:32 pm Supervision of normal April 12:32pm Gestational diabetes mellitus (GDM) April 22, 2025 1:31pm Hx gestational diabetes April 22, 2025 1:31pm LGA (large for gestational age) fetus Ju ly 2024 1:31pm Polyhydramnios affecting April 22, 2025 1:31pm April 22, 2025 1:31 pm Supervision of normal April 1:31pm Gestational diabetes mellitus (GDM) April 27, 2025 12:53pm Hx gestational diabetes April 27, 2025 12:53pm LGA (large for gestational age) fetus Ju ly 2024 12:53pm Polyhydramnios affecting April 27, 2025 12:53pm April 27, 2025 12:5 3pm Supervision of normal April 12:53pm Additional Source Comments Reason for Visit (unrecogniz ed section and content) Reason Comments Consult rectal polyp Status Reason Specialty Diagnoses / Procedures Referred By Contact Referred To Contact Closed General Surgery Diagnoses Rectal polyp Marlin Springer MD [address] [facility] [address] [place] [address] Carlos Begum MD [address] [place] [address] Reason Comments Procedure Reason Comments Follow-up INFORMATION SOURCE (unrecogn ized section and content) DATE CREATED AUTHOR 12/10/2018 [facility] DATE CREATED AUTHOR AUTHOR'S ORGANIZ ATION 11/13/2021 [facility] ([place]) DATE CREATED AUTHOR [facility]S [facility] AT[facility] DATE CREATED AUTHOR AUTHOR'S ORGANIZ ATION 04/22/2025 [facility] Care Teams (unrecognized sec tion and content) Team Status: Active Member Role Status Dates No Primary Care Physician Primary Care Provider Active Team Status: Active Member Role Status Dates No Primary Care Physician Primary Care Provider Active Start: March 11, 2025 Sandra Sorensen RN Attending Provider Active St art: March 11, 2025 Team Status: Inactive Member Role Status Dates No Primary Care Physician Primary Care Provider Active Start: March 14, 2025 End: March 14, 2025 Dr. Julieta Huffman DO Attending Provider Activ e Start: March 14, 2025 End: March 14, 2025 Dr. Julieta Huffman DO Referring Provider Activ e Start: March 14, 2025 End: March 14, 2025 Team Status: Inactive Member Role Status Dates No Primary Care Physician Primary Care Provider Active Start: March 22, 2025 End: March 22, 2025 No Primary Care Physician Referring Provider Active Start: March 22, 2025 End: March 22, 2025 Lauren Clinton CNM Attending Provider Active S tart: March 22, 2025 End: March 22, 2025 Team Status: Active Member Role Status Dates No Primary Care Physician Primary Care Provider Active Start: March 22, 2025 Lauren Clinton CNM Attending Provider Active S tart: March 22, 2025 Lauren Clinton CNM Referring Provider Active S tart: March 22, 2025 Team Status: Inactive Member Role Status Dates No Primary Care Physician Primary Care Provider Active Start: March 22, 2025 End: March 22, 2025 Lauren Clinton CNM Attending Provider Active S tart: March 22, 2025 End: March 22, 2025 Lauren Clinton CNM Referring Provider Active S tart: March 22, 2025 End: March 22, 2025 Team Status: Inactive Member Role Status Dates No Primary Care Physician Primary Care Provider Active Start: April 01, 2025 End: April 01, 2025 No Primary Care Physician Referring Provider Active Start: April 01, 2025 End: April 01, 2025 Dr. Rhonda Fleming MD Attending Provider Active Start: April 01, 2025 End: April 01, 2025 Team Status: Inactive Member Role Status Dates No Primary Care Physician Primary Care Provider Active Start: April 07, 2025 End: April 07, 2025 No Primary Care Physician Referring Provider Active Start: April 07, 2025 End: April 07, 2025 Ana Boss NP, SENIOR C SOFTWARE DEVELOPER-C Attending Provider Active Start: April 07, 2025 End: April 07, 2025 Team Status: Active Member Role/Relationship Status Dates No Primary Care Physician Primary Care Provider Active Team Status: Active Member Role/Relationship Status Dates No Primary Care Physician Primary Care Provider Active Start: March 11, 2025 Sandra Sorensen RN Attending Provider Active St art: March 11, 2025 Team Status: Inactive Member Role/Relationship Status Dates No Primary Care Physician Primary Care Provider Active Start: March 14, 2025 End: March 14, 2025 Dr. Julieta Huffman DO Attending Provider Activ e Start: March 14, 2025 End: March 14, 2025 Dr. Julieta Huffman , Referring Provider Activ e Start: March 14, 2025 End: March 14, 2025 Team Status: Inactive Member Role/Relationship Status Dates No Primary Care Physician Primary Care Provider Active Start: March 22, 2025 End: March 22, 2025 No Primary Care Physician Referring Provider Active Start: March 22, 2025 End: March 22, 2025 Lauren Clinton CNM Attending Provider Active S tart: March 22, 2025 End: March 22, 2025 Team Status: Inactive Member Role/Relationship Status Dates No Primary Care Physician Primary Care Provider Active Start: March 22, 2025 End: March 22, 2025 Lauren Clinton CNM Attending Provider Active S tart: March 22, 2025 End: March 22, 2025 Lauren Clinton CNM Referring Provider Active S tart: March 22, 2025 End: March 22, 2025 Team Status: Inactive Member Role/Relationship Status Dates No Primary Care Physician Primary Care Provider Active Start: April 01, 2025 End: April 01, 2025 No Primary Care Physician Referring Provider Active Start: April 01, 2025 End: April 01, 2025 Dr. Rhonda Fleming MD Attending Provider Active Start: April 01, 2025 End: April 01, 2025 Team Status: Inactive Member Role/Relationship Status Dates No Primary Care Physician Primary Care Provider Active Start: April 07, 2025 End: April 07, 2025 No Primary Care Physician Referring Provider Active Start: April 07, 2025 End: April 07, 2025 Ana Boss NP, STAR-C Attending Provider Active Start: April 07, 2025 End: April 07, 2025 Team Status: Active Member Role/Relationship Status Dates No Primary Care Physician Primary Care Provider Active Start: April 13, 2025 Dr. Rhonda Fleming MD Attending Provider Active Start: April 13, 2025 Dr. Rhonda Fleming MD Referring Provider Active Start: April 13, 2025 Team Status: Inactive Member Role/Relationship Status Dates No Primary Care Physician Primary Care Provider Active Start: April 13, 2025 End: April 13, 2025 No Primary Care Physician Referring Provider Active Start: April 13, 2025 End: April 13, 2025 Dr. Julieta Huffman DO Attending Provider Activ e Start: April 13, 2025 End: April 13, 2025 Team Status: Inactive Member Role/Relationship Status Dates No Primary Care Physician Primary Care Provider Active Start: April 13, 2025 End: April 13, 2025 Dr. Rhonda Fleming MD Attending Provider Active Start: April 13, 2025 End: April 13, 2025 Dr. Rhonda Fleming MD Referring Provider Active Start: April 13, 2025 End: April 13, 2025 Team Status: Inactive Member Role/Relationship Status Dates No Primary Care Physician Primary Care Provider Active Start: April 22, 2025 End: April 22, 2025 No Primary Care Physician Referring Provider Active Start: April 22, 2025 End: April 22, 2025 Lauren Clinton CNM Attending Provider Active S tart: April 22, 2025 End: April 22, 2025 Team Status: Inactive Member Role/Relationship Status Dates No Primary Care Physician Primary Care Provider Active Start: April 27, 2025 End: April 27, 2025 No Primary Care Physician Referring Provider Active Start: April 27, 2025 End: April 27, 2025 Dr. Rhonda Fleming MD Attending Provider Active Start: April 27, 2025 End: April 27, 2025 Goals (unrecognized section and content) Goals may be documented in a n alternate section FOR RECORDS PERTAINING TO PATIENTS WHO ARE OR HAVE BEEN ENROLLED IN A CHEMICAL DEPENDENCY/SUBSTANCEABUSE PROGRAM, SOME INFORMATION MAY BE OMITTED. This clinical summary was aggregated from multiple sources. Caution should be exercised in using it in the provision of clinical care. This summary normalizes information from multiple sources, and as a consequence, information in this document may materially change the coding, format and clinical context of patient data. In addition, data may be omitted in some cases. CLINICAL DECISIONS SHOULD BE BASED ON THE PRIMARY CLINICAL RECORDS. [employer] provides no warranty or guarantee of the accuracy or completeness of information in this document.
[2025-04-28] MEDS: Lactated Ringers 1,000 ML 999 ML IV (01:15)
--- OUTSIDE RECORDS SUMMARY | 2025-04-28 01:17 | XMS RPT_ITS | CCD ---
Author Organization [facility] Care Team Providers Care Forge Press Operator Name Role Phone Clint Donisterri Ann Unavailable Marlin Springer Primary Care Provider Marlin Springer Unavailable Carlos Begum Admitting Unavailable [...] Un available Lauren Clinton CNM Attending Provider [phone] Lauren Clinton CNM Referring Provider Dr. Rhonda Fleming MD Attending Provider Ana Jimenez Attending Provider Dr. Rhonda Fleming MD Referring Provider [phone] Rhonda Fleming Referring Unavailable Care Physician, No [...] 31wks]No genetic/carrier testing done PRR (waiting on [facility]) , CALEB 05/10/25, PC: Sarah Sal, Dominic, Elizabeth & Sade, : Reynaldo Burger Neg gbs PRR (waiting on [facility]) , CALEB 05/10/25, PC: Sarah Sal Andrea, [...] Clinton on 04-22-2025 Glucose Ql (U) Negative [facility] Laboratory - UrinalysisOrder ed By: Lauren Clinton on 04-22-2025 Protein Ql (U) Negative [facility] Automatic Seamer Office Visit Reporton 04-22-2025 Automatic Seamer Office Visit Report [facility] [address] [place] [address], [address] [place] [address] OFFICE VISIT Date of Service: 04/22/25 MR#: [id number] Acct: [id number] Name: LAURIE RIGGS Rep #: [id number] : 1990 Provider: VICKY Sanders ams Age/Sex: 35/F Location: [facility] Status: Signed Intake Vital Signs 04/01/25 16:00 04/13/25 13:00 04/22/25 13:38 Height 5 ft 3 in 5 ft 3 in 5 ft 3 in Weight: 147 lb 6 oz 149 lb 2 oz BMI 26.1 26.4 BP 107/65 123/67 H Intake Visit Reasons: 37wk ob/nst Chief Complaint: 37wk ob/nst Chief Substation Operator Required: No Is patient in pain?: No [...] house number of children: 5 current occupation: [employer] current occupational exposures/hazards: No pets and animals: [...] 5-6 times per week duration: 45-60 minutes/day milady/latter day: Oriental Orthodox seatbelt use: sometimes do you feel safe [...] Date: 11/02/19 Last Updated by: Sandra Sorensen, insolvency practitioner instructed her to watch her BS HPI [...] been trac (more content not included)... Normal [facility] Rule out Beta Strep (Grp. B) on 04-15-2025 JOSE Group B Beta Streptococcus is not isolated. Normal [facility] Comment on above: Performed By: #### M 100.3400 ####[facility] [address] [place], [place], [id number] Laboratory - Chemistry and C hemistry - challengeOrdered By: Julieta Chavez on 04-13-2025 Glucose Ql (U) Negative [facility] Laboratory - UrinalysisOrder ed By: Julieta Chavez on 04-13-2025 Protein Ql (U) Negative [facility] OB Limited With Biometricson 04-13-2025 OB Limited With Biometrics [facility] Imaging Services [address] [place], [place] [id number] OB Limited With Biometrics MR#: [id number] Acct: [id number] Name: LAURIE RIGGS Rep #: [id number] : 1990 F 35 From: Satinder valdez MD PCP: Care Physician,No Primary Status: REG CLI Study: OB Limited With Biometrics Date of Exam: 04/13 Exam# [id number] Ordering Dr: Rhonda Fleming PROCEDURE: OB LIMITED [...] 37 weeks and 1 day. Reading Location: [place] [address] CC: Dr. Rhonda Fleming MD; No Primary Care Physician Bundle Sorter: Signed Normal [facility] Automatic Seamer Office Visit Reporton 04-13-2025 Automatic Seamer Office Visit Report [facility]'s [address], [address] [place] [address] OFFICE VISIT Date of Service: 04/13/25 MR#: [id number] Acct: [id number] Name: LAURIE RIGGS Rep #: [id number] : 1990 Provider: Dr. Julieta Barrett DO Age/Sex: 35/F Location: [facility] Status: Signed Intake Vital Signs 04/01/25 16:00 04/07/25 13:40 04/13/25 13:00 Height 5 ft 3 in 5 ft 3 in 5 ft 3 in Weight: 147 lb 6 oz BMI 26.1 BP 107/65 Intake Visit Reasons: 36wk ob/nst Chief Substation Operator Required: No Is patient in pain?: No [...] house number of children: 5 current occupation: [employer] current occupational exposures/hazards: No pets and animals: [...] 5-6 times per week duration: 45-60 minutes/day milady/latter day: Oriental Orthodox seatbelt use: sometimes do you feel safe [...] Date: 11/02/19 Last Updated by: Sandra Sorensen insolvency practitioner instructed her to watch her BS HPI [...] been tr (more content not included)... Normal [facility] Screening beta-hemolytic Str eptococcus cultureOrdered By: Julieta Chavez on 04-13-2025 Beta-hemolytic Streptococcus culture Group B Beta Streptococcus is not isolated. [facility] Laboratory - Chemistry and C hemistry - challengeOrdered By: Ana Boss on 04-07-2025 Glucose Ql (U) Negative [facility] Laboratory - UrinalysisOrder ed By: Ana Boss on 04-07-2025 Protein Ql (U) Negative [facility] Automatic Seamer Office Visit Reporton 04-07-2025 Automatic Seamer Office Visit Report [facility]'s [address], [address] [place] [address] OFFICE VISIT Date of Service: 04/07/25 MR#: [id number] Acct: [id number] Name: LAURIE RIGGS Rep #: [id number] : 1990 Provider: TSERING valentin Age/Sex: 35/F Location: [facility] [place] [facility] Status: Signed Intake Vital Signs 04/01/25 16:00 04/07/25 13:40 04/07/25 13:40 Height 5 ft 3 in 5 ft 3 in 5 ft 3 in Weight: 149 lb 2 oz 149 lb 4 oz BMI 26.4 26.4 BP 123/71 H 115/66 Intake Visit Reasons: 35wk nst only Chief Substation Operator Required: No Is patient in pain?: No [...] house number of children: 5 current occupation: [employer] current occupational exposures/hazards: No pets and animals: [...] 5-6 times per week duration: 45-60 minutes/day milady/latter day: Oriental Orthodox seatbelt use: sometimes do you feel safe [...] Date: 11/02/19 Last Updated by: Sandra Sorensen insolvency practitioner instructed her to watch her BS HPI [...] elevated num (more content not included)... Normal [facility] Laboratory - Chemistry and C hemistry - challengeOrdered By: Rhonda Fleming on 04-01-2025 Glucose Ql (U) Negative [facility] Laboratory - UrinalysisOrder ed By: Rhonda Fleming on 04-01-2025 Protein Ql (U) Negative [facility] Automatic Seamer Office Visit Reporton 04-01-2025 Automatic Seamer Office Visit Report [facility] [address], [address] [place] [address] OFFICE VISIT Date of Service: 04/01/25 MR#: [id number] Acct: [id number] Name: LAURIE RIGGS Rep #: [id number] : 1990 Provider: Dr. Rhonda bailey MD Age/Sex: 35/F Location: [facility] [place] [facility] Status: Signed Intake Vital Signs 03/22/25 11:00 04/01/25 16:00 Height 5 ft 3 in 5 ft 3 in Weight: 149 lb 2 oz BMI 26.4 BP 123/71 H Intake Visit Reasons: 33wk ob per KW *co care Chief Complaint: 33 Week OB Chief Substation Operator Required: No Is patient in pain?: No [...] house number of children: 5 current occupation: [employer] current occupational exposures/hazards: No pets and animals: [...] 5-6 times per week duration: 45-60 minutes/day milady/latter day: Oriental Orthodox seatbelt use: sometimes do you feel safe [...] Date: 11/02/19 Last Updated by: Sandra Sorensen insolvency practitioner instructed her to watch her BS HPI [...] 2 mo (more content not included)... Normal [facility] Urine Cultureon 03-24-2025 URC Below infection leandro l. Mixed Gram Positive Organisms Gifford Count 1000-10,000 MIXC Mixed contaminants. Submit a new specimen if indicated. Normal [facility] Comment on above: Performed By: #### M 100.2200 ####[facility] [address] [place], [address] Absolute lymphocyte countOrd ered By: Lauren Clinton on 03-22-2025 Lymphocytes Auto (Unsp spec) [#/Vol] 1.81 10*3/uL 0.83-4.51 [facility] Absolute neutrophil countOrd ered By: Lauren Clinton on 03-22-2025 Neutrophils (Bld) [#/Vol] 3.4 10*3/uL 2.0-7.7 [facility] Automated lymphocyte count a s percentage of total leukocytesOrdered By: Lauren Clinton on 03-22-2025 Lymphocytes/100 WBC Auto (Unsp spec) 32.6 % 19-41 [facility] Basophil percentageOrdered B y: Lauren Clinton on 03-22-2025 Basophils/100 WBC (Bld) 0.2 % 0-1 W [facility] CBC W/Diff, Automatedon 03-13 0-2024 Absolute Lymph 1.81 X10 3/uL Normal 0.83-4.51 [facility] Comment on above: Performed By: #### L 100.0100, L509.4006, L509.8002, BTS, L3890.6301, L501.9985, L3890.6102, L3890.6006 #### [facility] Laboratory [address] [place], [address] Absolute Neut 3.4 X10 3/uL Normal 2.0-7.7 [facility] Comment on above: Performed By: #### L 100.0100, L509.4006, L509.8002, BTS, L3890.6301, L501.9985, L3890.6102, L3890.6006 #### [facility] [address] [place], [address] Basophils/100 WBC (Bld) 0.2 % Normal 0-1 W [facility] Comment on above: Performed By: #### L 100.0100, L509.4006, L509.8002, BTS, L3890.6301, L501.9985, L3890.6102, L3890.6006 #### [facility] [address] [place], [address] Eosinophils/100 WBC (Bld) 0.4 % Normal 0-5 [facility] Comment on above: Performed By: #### L 100.0100, L509.4006, L509.8002, BTS, L3890.6301, L501.9985, L3890.6102, L3890.6006 #### [facility] [address] [place], [address] Erythrocyte distribution width (RBC) [Ratio] 13.9 % Normal 11.6-14.6 [facility] Comment on above: Performed By: #### L 100.0100, L509.4006, L509.8002, BTS, L3890.6301, L501.9985, L3890.6102, L3890.6006 #### [facility] [address] [place], [address] Hematocrit (Bld) [Volume fraction] 36.5 % Low 37-47 [facility] Comment on above: Performed By: #### L 100.0100, L509.4006, L509.8002, BTS, L3890.6301, L501.9985, L3890.6102, L3890.6006 #### [facility] [address] [place], [address] Hemoglobin (Bld) [Mass/Vol] 12.5 g/dL Normal 12.0-15.0 [facility] Comment on above: Performed By: #### L 100.0100, L509.4006, L509.8002, BTS, L3890.6301, L501.9985, L3890.6102, L3890.6006 #### [facility] [address] [place], [address] IG% 0.400 Normal 0.0-0.9 [facility] Comment on above: Result Comment: IG% - Immature Granulocytes (promyelocytes, myelocytes and metamyelocytes) > 1% indicates that a LEFT SHIFT is Present. Performed By: #### L 100.0100, L509.4006, L509.8002, BTS, L3890.6301, L501.9985, L3890.6102, L3890.6006 #### [facility] [address] [place], [address] Lymphocytes/100 WBC (Bld) 32.6 % Normal 19-41 [facility] Comment on above: Performed By: #### L 100.0100, L509.4006, L509.8002, BTS, L3890.6301, L501.9985, L3890.6102, L3890.6006 #### [facility] [address] [facility] [place], [address] MCH (RBC) [Entitic mass] 32.0 pg Normal 27.0-32.0 [facility] Comment on above: Performed By: #### L 100.0100, L509.4006, L509.8002, BTS, L3890.6301, L501.9985, L3890.6102, L3890.6006 #### [facility] [address] [facility] [place], [address] MCHC (RBC) [Mass/Vol] 34.2 g/dL Normal 32-36 [facility] Comment on above: Performed By: #### L 100.0100, L509.4006, L509.8002, BTS, L3890.6301, L501.9985, L3890.6102, L3890.6006 #### [facility] [address] [place], [address] MCV (RBC) [Entitic vol] 93.4 fL Normal 81-99 [facility] Comment on above: Performed By: #### L 100.0100, L509.4006, L509.8002, BTS, L3890.6301, L501.9985, L3890.6102, L3890.6006 #### [facility] [address] [place], [address] Monocytes/100 WBC (Bld) 5.8 % Normal 0-10 W [facility] Comment on above: Performed By: #### L 100.0100, L509.4006, L509.8002, BTS, L3890.6301, L501.9985, L3890.6102, L3890.6006 #### [facility] [address] [place], [address] Neutrophils/100 WBC (Bld) 60.6 % Normal 47-70 [facility] Comment on above: Performed By: #### L 100.0100, L509.4006, L509.8002, BTS, L3890.6301, L501.9985, L3890.6102, L3890.6006 #### [facility] [address] [place], [address] Nucleated RBC (Bld) [#/Vol] 0 10*3/uL Normal 0-5 [facility] Comment on above: Performed By: #### L 100.0100, L509.4006, L509.8002, BTS, L3890.6301, L501.9985, L3890.6102, L3890.6006 #### [facility] [address] [place], [address] Platelet mean volume (Bld) [Entitic vol] 9.9 fL Normal 6.2-12.0 [facility] Comment on above: Performed By: #### L 100.0100, L509.4006, L509.8002, BTS, L3890.6301, L501.9985, L3890.6102, L3890.6006 #### [facility] [address] [place], [address] Platelets (Bld) [#/Vol] 201 10*3/uL Normal 150-450 [facility] Comment on above: Performed By: #### L 100.0100, L509.4006, L509.8002, BTS, L3890.6301, L501.9985, L3890.6102, L3890.6006 #### [facility] [address] [place], [address] RBC (Bld) [#/Vol] 3.91 10*6/uL Low 4.2-5.4 [facility] Comment on above: Performed By: #### L 100.0100, L509.4006, L509.8002, BTS, L3890.6301, L501.9985, L3890.6102, L3890.6006 #### [facility] [address] [place], [address] RDW SD 46.5 fl High 35.1-43.9 [facility] Comment on above: Performed By: #### L 100.0100, L509.4006, L509.8002, BTS, L3890.6301, L501.9985, L3890.6102, L3890.6006 #### [facility] [address] [place], [address] WBC (Bld) [#/Vol] 5.6 10*3/uL Normal 4.4-11.0 [facility] Comment on above: Performed By: #### L 100.0100, L509.4006, L509.8002, BTS, L3890.6301, L501.9985, L3890.6102, L3890.6006 #### [facility] [address] [place], [address] Eosinophil percentageOrdered By: Lauren Clinton on 03-22-2025 Eosinophils/100 WBC (Bld) 0.4 % 0-5 [facility] Erythrocyte distribution wid th ratioOrdered By: Lauren Clinton on 03-22-2025 Erythrocyte distribution width (RBC) [Ratio] 13.9 % 11.6-14.6 [facility] Erythrocyte distribution wid th standard deviationOrdered By: Lauren Clinton on 03-22-2025 Erythrocyte distribution width (RBC) [Ratio] 46.5 fl High 35.1-43.9 [facility] HIVon 03-22-2025 HIV Non-Reactive Normal Nonreactive [facility] Comment on above: Result Comment: Non- Reactive Reactive Repeatedly reactive samples must be confirmed according to CDC recommended confirmatory algorithms. The subresults for either HIVAG or AHIV can be used as an aid in the selection of the confirmation algorithm for reactive samples. Send out specimens with Reactive results to [facility] for confirmation. Order the HIV antibody detection and differentiation: lc#[id number] Performed By: #### L 100.0100, L509.4006, L509.8002, BTS, L3890.6301, L501.9985, L3890.6102, L3890.6006 #### [facility] [address] [place], [place], [address] Hematocrit Auto (Bld) [Volum e fraction]Ordered By: Lauren Clinton on 03-22-2025 Hematocrit (Bld) [Volume fraction] 36.5 % Low 37-47 [facility] Hemoglobin A1con 03-22-2025 HbA1c (Bld) [Mass fraction] 4.7 % Normal <=5.6 [facility] Comment on above: Result Comment: Norm al < 5.7 % Prediabetic 5.7 - 6.4 % Diabetic >or= 6.5 % Please note range changes. Performed By: #### L 100.0100, L509.4006, L509.8002, BTS, L3890.6301, L501.9985, L3890.6102, L3890.6006 ####[facility] [address] [place], [place], [address] Hemoglobin A1c percentageOrd ered By: Lauren Clinton on 03-22-2025 HbA1c (Bld) [Mass fraction] 4.7 % <5.7 [facility] Comment on above: Normal < 5.7 % Predi abetic 5.7 - 6.4 % Diabetic >or= 6.5 % Please note range changes. Hemoglobin measurementOrdere d By: Lauren Clinton on 03-22-2025 Hemoglobin (Bld) [Mass/Vol] 12.5 g/dL 12.0-15.0 [facility] Hepatitis C Antibodyon 03-22 Hepatitis C Ab Non-Reactive Normal Nonreactive [facility] Comment on above: Result Comment: Reac tive: Presumptive evidence of antibodies to HCV. Follow CDC recommendations for supplemental testing. Non-Reactive: Antibodies to HCV were not detected; does not exclude the possibility of exposure to HCV Reactive Results are presumptive evidence of antibodies to HCV. Follow CDC recommendations for supplemental testing. Order confirmation testing: HCV Quant by PCR testing - HCVPCR #[id number] Non Reactive: < 0.8 Equivocal: >/= 0.8 to < 1.0 Reactive: >/= 1.0 The [facility] requires that a reactive/equivocal HCV antibody result be sent out for confirmation. HCV Quant by PCR testing. Performed By: #### L 100.0100, L509.4006, L509.8002, BTS, L3890.6301, L501.9985, L3890.6102, L3890.6006 ####[facility] [address] [place], [address] Immature granulocytes/100 WB C Auto (Bld)Ordered By: Lauren Clinton on 03-22-2025 Immature granulocytes/100 WBC (Bld) 0.400 % 0.0-0.9 [facility] Comment on above: IG% - Immature Granu locytes (promyelocytes, myelocytes and metamyelocytes) > 1% indicates that a LEFT SHIFT is Present. L3890.6102on 03-22-2025 HEP B Surf Ag Non-Reactive Normal Nonreactive [facility] Comment on above: Result Comment: Reac tive: Presumptive evidence of HBV. Repeatedly reactive samples must be confirmed using a neutralization test ([employer] HBsAg Confirmatory Test) Non-Reactive: HBsAg not detected; does not exclude the possibility of exposure to HBV Performed By: #### L 100.0100, L509.4006, L509.8002, BTS, L3890.6301, L501.9985, L3890.6102, L3890.6006 ####[facility] [address] [facility] [place], [address] L509.4006on 03-22-2025 Rubella IgG REAC Normal Nonreactive [facility] Comment on above: Result Comment: Anti body Result: Interpretation Non-Reactive: Non-Immune Reactive: Immune The following results were obtained with the [employer] Rubella IgG assay. Results from assays of other manufacturers cannot be used interchangeably. Performed By: #### L 100.0100, L509.4006, L509.8002, BTS, L3890.6301, L501.9985, L3890.6102, L3890.6006 #### [facility] [address] [facility] [address] [place], [place], [address] Laboratory - Chemistry and C hemistry - challengeOrdered By: Lauren Clinton on 03-22-2025 Glucose Ql (U) Negative [facility] Laboratory - Microbiology an d Antimicrobial susceptibilityOrdered By: Lauren Clinton on 03-22-2025 HBV surface Ag Ql (S) Non-Reactive Nonreactive [facility] Comment on above: Reactive: Presumptiv e evidence of HBV. Repeatedly reactive samples must be confirmed using a neutralization test ([employer] HBsAg Confirmatory Test)Non-Reactive: HBsAg not detected; does not exclude the possibility of exposure to HBV Laboratory - UrinalysisOrder ed By: Lauren Clinton on 03-22-2025 Protein Ql (U) Negative [facility] MCV (mean corpuscular volume ) determinationOrdered By: Lauren Clinton on 03-22-2025 MCV (RBC) [Entitic vol] 93.4 fL 81-99 [facility] Mean corpuscular hemoglobin (MCH) determinationOrdered By: Lauren Clinton on 03-22-2025 MCH (RBC) [Entitic mass] 32.0 pg 27.0-32.0 [facility] Mean corpuscular hemoglobin concentration (MCHC) determinationOrdered By: Lauren Clinton on 03-22-2025 MCHC (RBC) [Mass/Vol] 34.2 g/dL 32-36 [facility] Mean platelet volume determi nationOrdered By: Lauren Clinton on 03-22-2025 Platelet mean volume (Bld) [Entitic vol] 9.9 fL 6.2-12.0 [facility] Monocyte percentageOrdered B y: Lauren Clinton on 03-22-2025 Monocytes/100 WBC (Bld) 5.8 % 0-10 [facility] Neutrophil percentageOrdered By: Lauren Clinton on 03-22-2025 Neutrophils/100 WBC (Bld) 60.6 % 47-70 [facility] No Panel InformationOrdered By: Lauren Clinton on 03-22-2025 HIV (1&2) Antibody Non-Reactive Nonreactive [facility] Comment on above: Non-ReactiveReactive Repeatedly reactive samples must be confirmed according to CDC recommended confirmatory algorithms. The subresults for either HIVAG or AHIV can be used as an aid in the selection of the confirmation algorithm for reactive samples.Send out specimens with Reactive results to [facility] for confirmation.Order the HIV antibody detection and differentiation: #[id number] Nucleated red blood cell per centageOrdered By: Lauren Clinton on 03-22-2025 Nucleated RBC/100 WBC (Bld) [Ratio] 0 % 0-5 [facility] Automatic Seamer Office Visit Reporton 03-22-2025 Automatic Seamer Office Visit Report [facility]'s [address], [facility] [address] [place] [address] OFFICE VISIT Date of Service: 03/22/25 MR#: [id number] Acct: [id number] Name: RIGGSLAURIE Rep #: [id number] : 1990 Provider: VICKY Sanders [facility] Age/Sex: 35/F Location: [facility] [facility] Status: Signed Intake Vital Signs 03/22/25 11:00 Height 5 ft 3 in Weight: 153 lb 4 oz BMI 27.1 BP 115/69 Intake Visit Reasons: 32wk OB co-care Chief Substation Operator Required: No Is patient in pain?: No [...] of children: 5 service: No current occupation: [employer] current occupational exposures/hazards: No pets and animals: [...] 5-6 times per week duration: 45-60 minutes/day milady/latter day: Oriental Orthodox seatbelt use: sometimes do you feel safe [...] 6oz Male none Home Reynaldo Burger 12/20/13 [place] 40 live - full term 7lbs 7oz Female none Home Reynaldo Burger 12/15/16 Domin[place] 40 live - full term 8lbs 8oz Female none [place] Reynaldo Burger 11/02/19 [place] 40 live - full term 7lbs 7oz Female none [place] Reynaldo Burger 04/04/22 Sade 40 live - full term 7lbs 14oz Female none Home eRynaldo Burger Delivery Date: 11/02/19 Last Updated by: Sandra Sorensen, insolvency practitioner instructed her to watch her BS HPI [...] glucose testi (more content not included)... Normal [facility] Platelet countOrdered By: Quinton Clinton on 03-22-2025 Platelets (Bld) [#/Vol] 201 10*3/uL 150-450 [facility] RBC Auto (Bld) [#/Vol]Ordere d By: Lauren Clinton on 03-22-2025 RBC (Bld) [#/Vol] 3.91 10*6/uL Low 4.2-5.4 [facility] Syphilis Antibodieson 2024 Syphilis Abs Non-Reactive Normal Nonreactive [facility] Comment on above: Performed By: #### L 100.0100, L509.4006, L509.8002, BTS, L3890.6301, L501.9985, L3890.6102, L3890.6006 #### [facility] [address] [place], [place], [address] Type AND Screenon 03-22-2025 ABO and Rh group Nom (Bld) Blood group O Rh(D) positive Normal [facility] Comment on above: Order Comment: PN Performed By: #### L 100.0100, L509.4006, L509.8002, BTS, L3890.6301, L501.9985, L3890.6102, L3890.6006 #### [facility] [address] [place], [address] Urine cultureOrdered By: You Clinton on 03-22-2025 Bacteria identified Cx Nom (U) Positive Abnormal [facility] White blood cell (WBC) count Ordered By: Lauren Clinton on 03-22-2025 WBC (Bld) [#/Vol] 5.6 10*3/uL 4.4-11.0 [facility] OB Limited With Biometricson 03-14-2025 OB Limited With Biometrics [facility] Imaging Services [address] [place] [address] OB Limited With Biometrics MR#: [id number] Acct: [id number] Name: LAURIE RIGGS Rep #: [id number] : 1990 F 35 From: Cody Reid MD PCP: Care Physician,No Primary Status: REG CLI Study: OB Limited With Biometrics Date of Exam: 03/14 Exam# [id number] Ordering Dr: Julieta Huffman DO PROCEDURE: OB [...] close clinical and imaging follow-up. Reading Location: [id number] CC: Dr. Julieta Huffman, DO; No Primary Care Physician Bundle Sorter: Signed [facility] Carton Machine Operator Cytology Reporton 2021 Carton Machine Operator Cytology Report . Pathology Reports Accession: Collected Date/Time: Received Date/Time: Pathologist: [id number] 11/06/2021 13:03 EST 11/07/2021 18:00 EST Carton Machine Operator Cytology Report SPECIMEN: Specimen Description: Liquid Prep w/ HPV Specimen: Cervical Screening or Diagnostic: Screening RELEVANT HISTORY: LMP: : Yes [id number] SPECIMEN ADEQUACY: SATISFACTORY FOR EVALUATION ENDOCERVICAL/TRANSFORM ATIONAL [...] and evaluated with the assistance of the MinderestPrep Test Imaging System. Electronically Signed by Pathology report verified by [facility] Screened by: GL Electronically signed by Carina Yanez Sign-Out Date: 11/12/2021 16:03 Performing Lab: [facility], [address] [place] [address] Disclaimer The Pap test is a screening test for cervical cancer. As evidenced by published data, it is subject to both inherent false negative and false positive results. Your patient's results should be interpreted in context with pertinent clinical history including gynecological examination. Normal [facility] ([place] HPVon 11-12-2021 HPV Interp Normal See Interp HPVN [facility] ([place] Comment on above: Order Comment: Order placed by AP_HPV_ORDER rule from [id number] Result Comment: High Risk HPV Typing: NEGATIVE [...] HPVN Performed By: #### H PV #### [place] [address] HPV Source Cervix Normal [facility] ([place]) Comment on above: Order Comment: Order placed by AP_HPV_ORDER rule from [id number] Performed By: #### H PV #### [place] [address] CTPCRon 11-08-2021 C. trachomatis Interp Normal See CT Interp N [facility] ([place]) Comment on above: Result Comment: C. t rachomatis DNA not detected. Specimen is presumptive negative for C. trachomatis. A negative result does not preclude C. trachomatis infection because results depend on adequate specimen collection, absence of inhibitors, and sufficient DNA to be detected. See CT Interp N Performed By: #### C TPCR, NGPCR1 #### [place] [address] C.trachomatis PCR Negative Normal Negative [facility] ([place]) Comment on above: Result Comment: Newman sport tube received with two swabs. Review collection procedure. Inappropriate collection may cause aberrant results. Molecular (PCR) assay performed on the Tyler Siri 4800 system. Performed By: #### C TPCR, NGPCR1 #### [place] [address] Chlam Source Cervix Normal [facility] ([place]) Comment on above: Performed By: #### C TPCR, NGPCR1 #### [place] [address] [id number] 11-08-2021 GC PCR Source Cervix Normal [facility] ([place]) Comment on above: Performed By: #### C TPCR, NGPCR1 #### [place] [address] N. gonorrhoeae (PCR) Negative Normal Negative [facility] ([place]) Comment on above: Result Comment: Newman sport tube received with two swabs. Review collection procedure. Inappropriate collection may cause aberrant results. Molecular (PCR) assay performed on the Tyler Siri 4800 System. Performed By: #### C TPCR, NGPCR1 #### [place] [address] N. gonorrhoeae Interp Normal See NG Interp N [facility] ([place]) Comment on above: Result Comment: N. g onorrhoeae DNA not detected. Specimen is presumptive negative for N. gonorrhoeae. A negative result does not preclude Neisseria gonorrhoeae infection because results depend on adequate specimen collection, absence of inhibitors, and sufficient DNA to be detected. See NG Interp N Performed By: #### C TPCR, NGPCR1 #### [place] [address] LABORATORYOrdered By: Pilar Goodrich on 11-06-2021 C. [...] MD , Pathologist (Case signed 12/08/2018) Normal [facility] Vital Signs Date Time Vital Sign Value Performing Clinician Facility 04-27-2025 13:03-0400 Body height 160.02 cm No Primary Care Physician [facility] 04-27-2025 13:03-0400 Body mass index (BMI) [Ratio] 26.1 kg/m2 No Primary Care Physician [facility] 04-27-2025 13:03-0400 Body weight 66.84 kg No Primary Care Physician [facility] 04-27-2025 13:03-0400 Diastolic blood pressure 68 mm[Hg] No Primary Care Physician [facility] 04-27-2025 13:03-0400 Systolic blood pressure 116 mm[Hg] No Primary Care Physician [facility] 04-22-2025 13:38-0400 Body height 160.02 cm No Primary Care Physician [facility] 04-22-2025 13:38-0400 Body mass index (BMI) [Ratio] 26.4 kg/m2 No Primary Care Physician [facility] 04-22-2025 13:38-0400 Body weight 67.64 kg No Primary Care Physician [facility] 04-22-2025 13:38-0400 Diastolic blood pressure 67 mm[Hg] No Primary Care Physician [facility] 04-22-2025 13:38-0400 Systolic blood pressure 123 mm[Hg] No Primary Care Physician [facility] 04-13-2025 13:00-0400 Body height 160.02 cm No Primary Care Physician [facility] 04-13-2025 13:00-0400 Body mass index (BMI) [Ratio] 26.1 kg/m2 No Primary Care Physician [facility] 04-13-2025 13:00-0400 Body weight 66.84 kg No Primary Care Physician [facility] 04-13-2025 13:00-0400 Diastolic blood pressure 65 mm[Hg] No Primary Care Physician [facility] 04-13-2025 13:00-0400 Systolic blood pressure 107 mm[Hg] No Primary Care Physician [facility] 04-07-2025 13:40-0400 Body height 160.02 cm No Primary Care Physician [facility] 04-07-2025 13:40-0400 Body mass index (BMI) [Ratio] 26.4 kg/m2 No Primary Care Physician [facility] 04-07-2025 13:40-0400 Body weight 67.69 kg No Primary Care Physician [facility] 04-07-2025 13:40-0400 Diastolic blood pressure 66 mm[Hg] No Primary Care Physician [facility] 04-07-2025 13:40-0400 Systolic blood pressure 115 mm[Hg] No Primary Care Physician [facility] 04-01-2025 16:00-0400 Body height 160.02 cm No Primary Care Physician [facility] 04-01-2025 16:00-0400 Body mass index (BMI) [Ratio] 26.4 kg/m2 No Primary Care Physician [facility] 04-01-2025 16:00-0400 Body weight 67.64 kg No Primary Care Physician [facility] 04-01-2025 16:00-0400 Diastolic blood pressure 71 mm[Hg] No Primary Care Physician [facility] 04-01-2025 16:00-0400 Systolic blood pressure 123 mm[Hg] No Primary Care Physician [facility] 03-22-2025 11:00-0400 Body height 160.02 cm No Primary Care Physician [facility] 03-22-2025 11:00-0400 Body mass index (BMI) [Ratio] 27.1 kg/m2 No Primary Care Physician [facility] 03-22-2025 11:00-0400 Body weight 69.51 kg No Primary Care Physician [facility] 03-22-2025 11:00-0400 Diastolic blood pressure 69 mm[Hg] No Primary Care Physician [facility] 03-22-2025 11:00-0400 Systolic blood pressure 115 mm[Hg] No Primary Care Physician [facility] 01-05-2019 13:45-0400 BMI (Body Mass Index) 25.61 kg/m2 [facility] 01-05-2019 13:45-0400 Body Temperature 98.49 [degF] [facility] 01-05-2019 13:45-0400 BP Diastolic 77 mm[Hg] [facility] 01-05-2019 13:45-0400 BP Systolic 125 mm[Hg] [facility] 01-05-2019 13:45-[address] [facility] 01-05-2019 13:45-0400 Pulse (Heart Rate) 76 /min [facility] 01-05-2019 13:45-0400 Pulse Oximetry 98 % [facility] 01-05-2019 13:45-[address] [facility] 12-04-2018 15:18-0500 BMI (Body Mass Index) 26.31 kg/m2 [facility] 12-04-2018 15:18-0500 Body Temperature 98.4 [degF] [facility] 12-04-2018 15:18-0500 BP Diastolic 66 mm[Hg] [facility] 12-04-2018 15:18-0500 BP Systolic 122 mm[Hg] [facility] 12-04-2018 15:18-[address] [facility] 12-04-2018 15:18-0500 Pulse (Heart Rate) 87 /min [facility] 12-04-2018 15:18-0500 Pulse Oximetry 98 % [facility] 12-04-2018 15:18-[address] [facility] 11-19-2018 14:54-0500 BMI (Body Mass Index) 27.28 kg/m2 [facility] 11-19-2018 14:54-0500 Body Temperature 98.49 [degF] [facility] 11-19-2018 14:54-0500 BP Diastolic 68 mm[Hg] [facility] 11-19-2018 14:54-0500 BP Systolic 118 mm[Hg] [facility] 11-19-2018 14:54-[address] [facility] 11-19-2018 14:54-0500 Pulse (Heart Rate) 69 /min [facility] 11-19-2018 14:54-0500 Pulse Oximetry 100 % [facility] 11-19-2018 14:54-[address] [facility] 12-15-2017 13:47-0500 BMI (Body Mass Index) 26.22 kg/m2 Hoda Prykhodko [facility] 12-15-2017 13:47-0500 BP Diastolic 74 mm[Hg] Hoda Prykhodko [facility] 12-15-2017 13:47-0500 BP Systolic 124 mm[Hg] Hoda Prykhodko [facility] 12-15-2017 13:47-0500 Height 160 cm Hoda Prykhodko [facility] 12-15-2017 13:47-0500 Pulse (Heart Rate) 77 /min Hoda Prykhodko [facility] 12-15-2017 13:47-0500 Pulse Oximetry 99 % Hoda Prykhodko [facility] 12-15-2017 13:470500 Weight 67.13 kg Hoda Padron [facility] Encounters Encounter Date Encounter Type Care Provider Facility Start: 04-27-2025 End: 04-27-2025 ambulatory No Primary Care Physician -[facility] Start: 04-27-2025 End: 04-27-[address] Rhonda Fleming MD -[facility] Work Phone: Start: 04-22-2025 End: 04-22-2025 Patient encounter procedure Lauren Clinton CNM -[facility] Work Phone: Start: 04-22-2025 End: 04-22-2025 ambulatory No Primary Care Physician -[facility] Start: 04-13-2025 End: 04-13-[address] Julieta Huffman DO -[facility] Work Phone: Start: 04-13-2025 End: 04-13-2025 ambulatory No Primary Care Physician -[facility] Start: 04-13-2025 End: 04-13-2025 ambulatory No Primary Care Physician [facility] Start: 04-13-2025 End: 04-13-[address] Rhonda Fleming MD -[facility] Work Phone: Start: 04-13-2025 End: 04-13-2025 ambulatory Rhonda Fleming Facility:[facility] Start: 04-07-2025 End: 04-07-2025 Patient encounter procedure Ana CAGLE -[facility] Work Phone: Start: 04-07-2025 End: 04-07-2025 ambulatory No Primary Care Physician [facility] Work Phone: Start: 04-01-2025 End: 04-01-[address] Rhonda Fleming MD -[facility] Work Phone: Start: 04-01-2025 End: 04-01-2025 ambulatory No Primary Care Physician [facility] Work Phone: Start: 03-22-2025 End: 03-22-2025 Patient encounter procedure Lauren Clinton CNM -[facility] Work Phone: Start: 03-22-2025 End: 03-22-2025 ambulatory No Primary Care Physician [facility] Work Phone: Start: 03-22-2025 End: 03-22-2025 ambulatory Lauren Clinton Facility:[facility] Start: 03-14-2025 End: 03-14-2025 ambulatory No Primary Care Physician [facility] Work Phone: Start: 03-14-2025 End: 03-14-[address] Julieta Huffman DO -[facility] Work Phone: Start: 03-14-2025 End: 03-14-2025 ambulatory Julieta Huffman Facility:[facility] Start: 03-11-2025 Non-patient / Non-visit Sandra Sorensen RN -[facility] Work Phone: Start: 03-11-2025 ambulatory Sandra Sorensen Facility :[facility] Start: 06-07-2022 ambulatory HODA THORNEKEN [facility] Start: 11-06-2021 End: 11-10-2021 Outreach Lab MARCO ARMENTA MD [facility] Start: 01-05-2019 End: 01-05-2019 Office outpatient visit 10 minutes Carlos Begum Work Phone: [facility] Comment on above: Anal polyp (Primary Dx) Start: 12-04-2018 End: 12-04-2018 Patient encounter procedure Carlos Begum Work Phone: [facility] Comment on above: Rectal polyp (Primar y Dx) Start: 12-04-2018 Patient encounter procedure Carlos Begum Facility:[place] Start: 12-04-2018 End: 12-04-2018 Patient encounter procedure Carlos Begum Work Phone: [facility] Start: 11-19-2018 End: 11-19-2018 Office outpatient new 20 minutes Marlin Springer Work Phone: [facility] Comment on above: Rectal polyp (Primar y Dx) Start: 12-15-2017 Office/outpatient visit, new, level 3 Luda Marissa Donis Work Phone: [facility] Procedures [...] HCV Quant by PCR testing - HCVPCR lc#[id number] Non Reactive: < 0.8 Equivocal: >/= 0.8 [...] Author Start: 04-13-2025 Ultrasound scan for growth [facility] Start: 03-22-2025 Bacteria identified in Urine by Culture Urine Culture [facility] Start: 12-04-2018 End: 12-04-2018 Office Visit 12/04/2018 Office Visit General Surgery Carlos Begum MD [address] [place] [address] [phone] [facility] Start: 06-13-2018 Influenza vaccination given SEQUENTIAL INFLUENZA VACCINE (#1) [facility] Start: 01-19-2018 Ambulatory 01/19/2018 Office Visit Otolaryngology Hoda Padron MD [address] [facility] [place]ne [facility] [address] [place] [address] [phone] [facility] Start: 06-13-2017 Influenza vaccination SEQUENTIAL INFLUENZA VACCINE (#1) [facility] Start: 1990 Screening for malignant neoplasm of cervix PAP SMEAR [facility] Start: 1990 Tetanus vaccination TETANUS EVERY [address] [facility] Erythrocyte mean corpuscular volume determination [facility] Hematocrit [Volume Fraction] of Blood [facility] Hemoglobin [Mass/vol ume] in Blood [facility] Hemoglobin A1c/Hemoglobin.total in Blood [facility] Hepatitis B virus surface Ag [Presence] in Serum [facility] Hepatitis C antibody measurement [facility] Leukocytes [#/volume ] in Blood [facility] Mean corpuscular hemoglobin concentration determination [facility] Mean corpuscular hemoglobin determination [facility] Neutrophil count [facility] Neutrophil percent differential count [facility] Platelets [#/volume] in Blood [facility] Red blood cell count [facility] Red cell distributio n width determination [facility] Rubella IgG measurement [facility] Serologic test for syphilis [facility] Streptococcus agalac tiae [Presence] in Unspecified specimen by Organism specific culture [facility] Ultrasound scan for growth [facility] Urine culture [facility] Payers Date Payer Category Payer Self-pay 2025 Unknown [id number] Self-pay [id number] Unknown [id number] 2.16.8 [id number] Unknown [id number] 2.16.8 [id number] Unknown [id number] 2.16.8 [id number] Unknown [id number] 2.16.8 [id number] Unknown [id number] 2.16.8 [id number] Unknown [id number] 2.16.8 [id number] Unknown [id number] 2.16.8 [id number] Unknown [id number] 2.16.8 [id number] Unknown [id number] 2.16.8 [id number] Social History Date Type Detail Facility Start: 12-15-2017 End: 03-11-2025 Tobacco smoking status [facility] Never smoker [facility] Sex Assigned At Not on file [facility] Start: 1990 Sex Assigned At Female A [facility] Clinical Notes 03-14-2025 to 04-27-2025 Note Date & Type Note Facility 04-27-2025 Progress note [facility] 04-22-2025 Progress note [facility] 04-22-2025 Progress note Note Date/Time April 22, 2025 2:25pm [facility] [address] [place] [address], [address] [place] [address] OFFICE VISIT Date of Service: 04/22/25 MR#: [id number] Acct: [id number] Name: LAURIE RIGGS Rep #: [id number] : 1990 Provider: VICKY Clinton Age/Sex: 35/F Location: [facility] Status: Signed Intake Vital Signs 04/01/25 16:00 04/13/25 13:00 04/22/25 13:38 Height 5 ft 3 in 5 ft 3 in 5 ft 3 in Weight: 147 lb 6 oz 149 lb 2 oz BMI 26.1 26.4 BP 107/65 123/67 H Intake Visit Reasons: 37wk ob/nst Chief Complaint: 37wk ob/nst Chief Substation Operator Required: No Is patient in pain?: No [...] house number of children: 5 current occupation: [employer] current occupational exposures/hazards: No pets and animals: [...] 5-6 times per week duration: 45-60 minutes/day milady/latter day: Oriental Orthodox seatbelt use: sometimes do you feel safe [...] - full term 8lbs 8oz Female none [facility] Reynaldo Burger 11/02/19 [place] 40 live - full term 7lbs 7oz Female none [facility] Reynaldo Burger 04/04/22 Sade 40 live - full term 7lbs 14oz Female none Home Reynaldo Burger Delivery Date: 11/02/19 Last Updated by: Sandra Sorensen insolvency practitioner instructed her to watch her BS HPI [...] gestation: 37 weeks CPT Codes Non-Stress Test (43342) Assessment and Plan Assessment and Plan (1) [...] trimester Comment: Neg gbs PRR (waiting on [facility]) , CALEB 05/10/25, PC: Sarah Sal Andrea, Emily & Sade, : Reynaldo Burger (6) : Status: Acute Qualifiers: Weeks of gestation: 37 weeks Qualified Code(s): Z3A.37 - 37 weeks gestation of Comment: [Co-Care w/Malena Wiley, RON @ [facility]] No genetic/carrier testing done Orders: Orders [...] this visit. GA appropriate handout given. 04/22/25 [id number] <Electronically signed by Lauren house CNM> Date _ Lauren Oz PERRY Cosigner Signature: Date (if applicable) CC: ~ [facility] Work Phone: 1(908) 776-505007-07-2025 Radiology Diagnostic study note [facility] Services [address] [place], [place] [address] OB Limited With Biometrics MR#: [id number] Acct: [id number] Name: LAURIE RIGGS Rep #: [id number] : 1990 F 35 From: Baldo Velez MD PCP: Care Physician,No Primary Status: REG CLI Study:OB Limited With Biometrics Date of Exam : 04/13/25 Exam# [id number] Ordering Dr: Rhonda Estrella MD PROCEDURE: OB [...] of 37 weeks and 1day. Reading Location: [place] [address] CC: Dr. Rhonda Fleming MD; No Primary Care Physician ~ Bundle Sorter: Signed [facility]06-20-2025 Progress [facility] [address], [address] [place] [address] OFFICE VISIT Date of Service: 04/01/25 MR#: [id number] Acct: [id number] Name: LAURIE RIGGS Rep #: [id number] : 1990 Provider: Dr. Ministerio Fleming MD Age/Sex: 35/F Location: [facility] Status: Signed Intake Vital Signs 03/22/25 11:00 04/01/25 16:00 Height 5 ft 3 in 5 ft 3 in Weight: 149 lb 2 oz BMI 26.4 BP 123/71 H Intake Visit Reasons: 33wk ob per KW *co care Chief Complaint: 33 Week OB Chief Substation Operator Required: No Is patient in pain?: No [...] house number of children: 5 current occupation: [employer] current occupational exposures/hazards: No pets and animals: [...] 5-6 times per week duration: 45-60 minutes/day milady/latter day: Oriental Orthodox seatbelt use: sometimes do you feel safe [...] Male no ne Home Reynaldo Burger 12/20/13 [place] 40 live - full term 7lbs 7oz Female none Home Reynaldo Burger 12/15/16 [place] 40 live - full term 8lbs 8oz Female none [facility] Reynaldo Burger 11/02/19 Elizabeth 40 live - full term 7lbs 7oz Female none [facility] Reynaldo Burger 04/04/22 Sade 40 live - full term 7lbs 14oz Female none Home Reynaldo Burger Delivery Date: 11/02/19 Last Updated by: Sandra Sorensen insolvency practitioner instructed her to watch her BS HPI [...] : Status: Acute Comment: PRR (waiting on [facility]) , CALEB 05/10/25, PC: Sarah Sal Andrea, [...] Cosigner Signature: Date (if applicable) CC: ~ [facility]06-20-2025 Progress note Author Rhonda Fleming [facility] Note Date/Time April 01, 2025 4:59 pm [facility] [address] [place] [address], [address] [place] [address] OFFICE VISIT Date of Service: 04/01/25 MR#: [id number] Acct: [id number] Name: LAURIE RIGGS Rep #: [id number] : 1990 Provider: Dr. Ministerio Fleming MD Age/Sex: 35/F Location: [facility] Status: Signed Intake Vital Signs 03/22/25 11:00 04/01/25 16:00 Height 5 ft 3 in 5 ft 3 in Weight: 149 lb 2 oz BMI 26.4 BP 123/71 H Intake Visit Reasons: 33wk ob per KW *co care Chief Complaint: 33 Week OB Chief Substation Operator Required: No Is patient in pain?: No [...] house number of children: 5 current occupation: [employer] current occupational exposures/hazards: No pets and animals: [...] 5-6 times per week duration: 45-60 minutes/day milady/latter day: Oriental Orthodox seatbelt use: sometimes do you feel safe [...] - full term 8lbs 8oz Female none [facility] Reynaldo Burger 11/02/19 [place] 40 live - full term 7lbs 7oz Female none [facility] Reynaldo Burger 04/04/22 Sade 40 live - full term 7lbs 14oz Female none Home Liam Delivery Date: 11/02/19 Last Updated by: Sandra Sorensen, insolvency practitioner instructed her to watch her BS HPI [...] of Comment: [Co-Care w/Malena Wiley, RON @ [facility]] No genetic/carrier testing done (2) Supervision [...] POC Urinalysis 2 Dip (Clinic) Today 04/01/25 [id number] <Electronically signed by Rhonda mata MD> Date _ Rhonda Fleming MD Cosigner Signature: Date (if applicable) CC: ~ [facility] Work Phone: 1(893) 974-444906-10-2025 Evaluation note* Diagnosis Onset Date Resolution Status Admit Date Hx gestational diabetes acute J 2024 10:57am LGA (large for gestational a ge) fetus acute March 22, 2025 10:57am Polyhydramnios affecting acute March 22, 2025 10:57am acute March 22 10:57am Supervision of normal acut e March 22, 2025 10:57am [facility] Work Phone: 1(630) 731-130406-10-2025 Evaluation note* Diagnosis Onset Date Resolution Status [...] normal acut e April 01, 2025 3:56pm [facility] Work Phone: 1(987) 682-859906-10-2025 Evaluation note* Diagnosis Onset Date Resolution Status [...] 2025 1:36pm Hx gestational diabetes acute J [facility] 2024 1:36pm LGA (large for gestational a ge) fetus acute April 07, 2025 1:36pm Polyhydramnios affecting acute April 07, 2025 1:36pm acute April 07 1:36pm Supervision of normal acut e April 07, 2025 1:36pm [facility] Work Phone: 1(454) 258-810706-10-2025 Evaluation note* Diagnosis Onset Date Resolution Status Admit Date Hx gestational diabetes acute [facility] 2024 10:57am LGA (large for gestational a [...] 2025 1:36pm Hx gestational diabetes acute [facility] 2024 1:36pm LGA (large for gestational a [...] normal acut e April 13, 2025 12:32pm [facility] Work Phone: 1(488) 597-686406-10-2025 Evaluation note* Diagnosis Onset Date Resolution Status Admit Date Hx gestational diabetes acute [facility] 2024 10:57am LGA (large for gestational a ge) fetus acute March 22, 2025 10:57am Polyhydramnios affecting acute March 22, 2025 10:57am acute March 22 10:57am Supervision of normal acut e March 22, 2025 10:57am Gestational diabetes mellitu s (GDM) acute April 01, 2025 3:56pm Hx gestational diabetes acute [facility] 2024 3:56pm LGA (large for gestational a ge) fetus acute April 01, 2025 3:56pm Polyhydramnios affecting acute April 01, 2025 3:56pm acute April 01 3:56pm Supervision of normal acut e April 01, 2025 3:56pm Gestational diabetes mellitu s (GDM) acute April 07, 2025 1:36pm Hx gestational diabetes acute [facility] 2024 1:36pm LGA (large for gestational a ge) fetus acute April 07, 2025 1:36pm Polyhydramnios affecting acute April 07, 2025 1:36pm acute April 07 1:36pm Supervision of normal acut e April 07, 2025 1:36pm Gestational diabetes mellitu s (GDM) acute April 13, 2025 1 2:32pm Hx gestational diabetes acute [facility] 2024 12:32pm LGA (large for gestational a ge) fetus acute April 13, 2025 1 2:32pm Polyhydramnios affecting acute April 13, 2025 1 2:32pm acute April 13, 2025 12:32pm Supervision of normal acut e April 13, 2025 12:32pm Gestational diabetes mellitu s (GDM) acute April 22, 2025 1:31pm Hx gestational diabetes acute [facility] 2024 1:31pm LGA (large for gestational a ge) fetus acute April 22, 2025 1:31pm Polyhydramnios affecting acute April 22, 2025 1:31pm acute April 22 1:31pm Supervision of normal acut e April 22, 2025 1:31pm [facility] Work Phone: 1(994) 694-747306-10-2025 Evaluation note* Diagnosis Onset Date Resolution Status Admit Date Hx gestational diabetes acute [facility] 2024 10:57am LGA (large for gestational a ge) fetus acute March 22, 2025 10:57am Polyhydramnios affecting acute March 22, 2025 10:57am acute March 22 10:57am Supervision of normal acut e March 22, 2025 10:57am Gestational diabetes mellitu s (GDM) acute April 01, 2025 3:56pm Hx gestational diabetes acute [facility] 2024 3:56pm LGA (large for gestational a ge) fetus acute April 01, 2025 3:56pm Polyhydramnios affecting acute April 01, 2025 3:56pm acute April 01 3:56pm Supervision of normal acut e April 01, 2025 3:56pm Gestational diabetes mellitu s (GDM) acute April 07, 2025 1:36pm Hx gestational diabetes acute [facility] 2024 1:36pm LGA (large for gestational a ge) fetus acute April 07, 2025 1:36pm Polyhydramnios affecting acute April 07, 2025 1:36pm acute April 07 1:36pm Supervision of normal acut e April 07, 2025 1:36pm Gestational diabetes mellitu s (GDM) acute April 13, 2025 1 2:32pm Hx gestational diabetes acute [facility] 2024 12:32pm LGA (large for gestational a [...] normal acut e April 27, 2025 12:53pm [facility] Work Phone: 1(661) 717-268106-10-2025 [facility] [address] [place] [address], [address] [place] [address] OFFICE VISIT Date of Service: 03/22/25 MR#: [id number] Acct: [id number] Name: LAURIE RIGGS Rep #: [id number] : 1990 Provider: VICKY Clinton Age/Sex: 35/F Location: [facility] [facility] Status: Signed Intake Vital Signs 03/22/25 11:00 Height 5 ft 3 in Weight: 153 lb 4 oz BMI 27.1 BP 115/69 Intake Visit Reasons: 32wk OB co-care Chief Substation Operator Required: No Is patient in pain?: No [...] of children: 5 service: No current occupation: [employer] current occupational exposures/hazards: No pets and animals: [...] 5-6 times per week duration: 45-60 minutes/day milady/latter day: Oriental Orthodox seatbelt use: sometimes do you feel safe [...] - full term 8lbs 8oz Female none [facility] Reynaldo Burger 11/02/19 Elizabeth 40 live - full term 7lbs 7oz Female none [facility] Reynaldo Burger 04/04/22 Sade 40 live - [...] Cosigner Signature: Date (if applicable) CC: ~ [facility]06-02-2025 Radiology Diagnostic study note [facility] Imaging Services [address], [place] [id number] OB Limited With Biometrics MR#: [id number] Acct: [id number] Name: LAURIE RIGGS Rep #: [id number] : 1990 F 35 From: Yue Reid MD PCP: Care Physician,No Primary Status: REG CLI Study:OB Limited With Biometrics Date of Exam : 03/14/25 Exam# [id number] Ordering Dr: Julieta Sotelo DO PROCEDURE: OB [...] Huffman DO; No Primary Care Physician ~ Bundle Sorter: [facility] Future [facility]ments Appointment Date:12/04/2021 10:30:00 AM Scheduled Provider:ELEANOR ESTRADA Location:[facility] Appointment Type: OV OB Routine Follow Up [...] Antibody 11/06/21 * Complete Metabolic Panel 11/06/21 [facility] Evaluation noteNo assessment information available [facility] Work Phone: Evaluation note* Diagnosis Onset Date Resolution Status Admit Date Hx gestational diabetes acute J 2024 10:57am LGA (large for gestational a ge) fetus acute March 22, 2025 10:57am Polyhydramnios affecting acute March 22, 2025 10:57am acute March 22 10:57am Supervision of normal acut e March 22, 2025 10:57am [facility] Work Phone: Hospital course Narrative No data available for this section [facility] Discharge instructions No data available for this section [facility] Progress note Author Lauren Clinton [facility] Note Date/Time March 22, 2025 11:4 6am [facility] [address] [place] [address], [address] [place] [address] OFFICE VISIT Date of Service: 03/22/25 MR#: [id number] Acct: [id number] Name: RIGGSLAURIE Rep #: [id number] : 1990 Provider: VICKY Clinton Age/Sex: 35/F Location: [facility] Status: Signed Intake Vital Signs 03/22/25 11:00 Height 5 ft 3 in Weight: 153 lb 4 oz BMI 27.1 BP 115/69 Intake Visit Reasons: 32wk OB co-care Chief Substation Operator Required: No Is patient in pain?: No [...] of children: 5 service: No current occupation: [employer] current occupational exposures/hazards: No pets and animals: [...] 5-6 times per week duration: 45-60 minutes/day milady/latter day: Oriental Orthodox seatbelt use: sometimes do you feel safe [...] - full term 7lbs 7oz Female none [facility] Reynaldo Burger 12/15/16 Dominic 40 live - full term 8lbs 8oz Female none [facility] David 11/02/19 Elizabeth 40 live - full term 7lbs 7oz Female none [facility] Krystin Burger 04/04/22 Sade 40 live - full term 7lbs 14oz Female none Home Reynaldo Burger Delivery Date: 11/02/19 Last Updated by: Sandra Sorensen, insolvency practitioner instructed her to watch her BS HPI [...] Cosigner Signature: Date (if applicable) CC: ~ [facility] Work Phone: Progress note Author Rhonda Fleming [facility] Note Date/Time April 27, 2025 1:44 pm [facility] [address], [address] [place] [address] OFFICE VISIT Date of Service: 04/27/25 MR#: [id number] Acct: [id number] Name: LAURIE RIGGS Rep #: [id number] : 1990 Provider: Dr. Ministerio Fleming MD Age/Sex: 35/F Location: 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 Is patient in pain?: No [...] house number of children: 5 current occupation: [employer] current occupational exposures/hazards: No pets and animals: [...] 5-6 times per week duration: 45-60 minutes/day milady/latter day: Oriental Orthodox seatbelt use: sometimes do you feel safe [...] - full term 8lbs 8oz Female none [facility] Reynaldo Burger 11/02/19 Elizabeth 40 live - full term 7lbs 7oz Female none [facility] Reynaldo Burger 04/04/22 Sade 40 live - full term 7lbs 14oz Female none Home Reynaldo Burger Delivery Date: 11/02/19 Last Updated by: Sandra Sorensen insolvency practitioner instructed her to watch her BS HPI [...] gestation: 38 weeks CPT Codes Non-Stress Test (77053) Assessment and Plan Assessment and Plan (1) [...] Cosign Signature: Date (if applicable) CC: ~ [facility] Work Phone: Reason for referral (narrative)No reason [...] Diagnoses Rectal polyp Marlin Springer MD [address] [id number] Carlso Begum MD [address] [place] [address] History of Present Illness * Calros Begum MD - 11/19/2018 3:14 PM EST [...] that this could be done at the [place] office where we have the proper exam table and instruments todo this, or it could be done in the operating room. She is concerned about expense and would prefernot to have to go to the operating room. We will arrange for this in the [place] office. in this encounter* Carlos Begum MD [...] on file. For more information, please contact: [place] [address] Patient has advance care planning documents on file. For more information, please contact: [place] [address] No Advanced Directives Records Found Patient has advance care planning documents on file. For more information, please contact: [place] [address] No Advanced Directives Records FoundNo Advanced Directives [...] Diagnoses Rectal polyp Marlin Springer MD 24 [facility] [address] [place] [address] Carlos Begum MD [address] [place] [address] Reason Comments Procedure Reason Comments Follow-up INFORMATION SOURCE (unrecogn ized section and content) DATE CREATED AUTHOR 12/10/2018 [facility] DATE CREATED AUTHOR AUTHOR'S ORGANIZ ATION 11/13/2021 [facility] ([place]) DATE CREATED AUTHOR AUTHOR'S ORGANIZ ATION [facility] DATE CREATED AUTHOR AUTHOR'S ORGANIZ ATION 04/22/2025 [facility] Care Teams (unrecognized sec tion [...] End: April 07, 2025 Ana Boss NP, LUMP INSPECTOR-C Attending Provider Active Start: April 07, 2025 [...] BE BASED ON THE PRIMARY CLINICAL RECORDS. [employer] provides no warranty or guarantee of the accuracy or completeness of information in this document.
[2025-04-28 01:38] LABS: Hematocrit 39.2 % (37-47); Hemoglobin 13.7 g/dL (12.0-15.0); Immature Granulocytes Count 0.040 X10^3/uL (0.0-0.0); Mean Corp Hgb Conc 34.9 g/dL (32-36); Mean Corpuscular Volume 91.8 fL (81-99); Mean Platelet Vol. 10.4 fl (6.2-12.0); NRBC Flagged by Analyzer 0 % (0-5); Platelet Count 171 K/mm3 (150-450); RBC Distribution Width CV 14.6 % (11.6-14.6); RBC Distribution Width SD 48.7 fl (35.1-43.9); Red Blood Count 4.27 M/mm3 (4.2-5.4); White Blood Count 10.8 K/mm3 (4.4-11.0)
[2025-04-28 02:20] LABS: Syphilis Antibodies Nonreactive (Nonreactive)
[2025-04-28] MEDS: Oxytocin 15 Units/NS 250ml 15 UNITS/250 ML IV.SOLN 334 UNITS IV (02:23)
--- OUTSIDE RECORDS SUMMARY | 2025-04-28 02:24 | XMS RPT_ITS | CCD ---
Author Organization [facility] Care Team Providers Care Accounts Receivable Coordinator Name Role Phone Clint Donisterri Ann Unavailable Marlin Springer Primary Care Provider Marlin Springer Unavailable Carlos Begum Admitting Unavailable Carlos Begum Attending Unavailable PHYSICIAN, NONE Primary Care Physician Unavailab HODA Benavidez Attending U navailable MARLIN SPRINGER Primary Care Unavailabl e Care Physician, No Primary Primary Care Provider Unavailable Sandra Soresnen RN Attending Provider UnavailDr. Julieta Pool DO Attending Provider Dr. Julieta Huffman DO Referring Provider Care Physician, No Primary Referring Provider Un available Lauren Clinton CNM Attending Provider Lauren Clinton CNM Referring Provider Dr. Rhonda [...] 31wks]No genetic/carrier testing done PRR (waiting on [facility]) , [facility]EB 05/10/25, PC: Sarah Sal, Dominic, Elizabeth & Sade, : Reynaldo Burger Neg gbs PRR (waiting on [facility]) , [facility]EB 05/10/25, PC: Sarah Sal Andrea, [...] Clinton on 04-22-2025 Glucose Ql (U) Negative [facility] Laboratory - UrinalysisOrder ed By: Lauren Clinton on 04-22-2025 Protein Ql (U) Negative [facility] Outgoing Inspector Office Visit Reporton 04-22-2025 Outgoing Inspector Office Visit Report [facility] [address] [place] [address], [address] [place] [address] OFFICE VISIT Date of Service: 04/22/25 MR#: [id number] Acct: [id number] Name: LAURIE RIGGS Rep #: [id number] : 1990 Provider: VICKY Sanders ams Age/Sex: 35/F Location: [facility] Status: Signed Intake Vital Signs 04/01/25 16:00 04/13/25 13:00 04/22/25 13:38 Height 5 ft 3 in 5 ft 3 in 5 ft 3 in Weight: 147 lb 6 oz 149 lb 2 oz BMI 26.1 26.4 BP 107/65 123/67 H Intake Visit Reasons: 37wk ob/nst Chief Complaint: 37wk ob/nst Lint Cleaner Required: No Is patient in pain?: No [...] house number of children: 5 current occupation: [employer] current occupational exposures/hazards: No pets and [...] 5-6 times per week duration: 45-60 minutes/day milady/baptist: Cheondoism seatbelt use: sometimes do you feel safe [...] Date: 11/02/19 Last Updated by: Sandra Sorensen, floatman instructed her to watch her BS HPI [...] been trac (more content not included)... Normal [facility] Rule out Beta Strep (Grp. B) on 04-15-2025 JOSE Group B Beta Streptococcus is not isolated. Normal [facility] Comment on above: Performed By: #### M 100.3400 ####[facility] [address] [place], [place], [id number] Laboratory - Chemistry and C hemistry - challengeOrdered By: Julieta Chavez on 04-13-2025 Glucose Ql (U) Negative [facility] Laboratory - UrinalysisOrder ed By: Julieta Chavez on 04-13-2025 Protein Ql (U) Negative [facility] OB Limited With Biometricson 04-13-2025 OB Limited With Biometrics [facility] [address] [place], [place] [id number] OB Limited With Biometrics MR#: [id number] Acct: [id number] Name: LAURIE RIGGS Rep #: [id number] : 1990 F 35 From: Satinder valdez MD PCP: Care Physician,No Primary Status: REG CLI Study: OB Limited With Biometrics Date of Exam: 04/13 Exam# [id number] Ordering Dr: Rhonda Fleming PROCEDURE: OB LIMITED [...] 37 weeks and 1 day. Reading Location: [place] [address] CC: Dr. Rhonda Fleming MD; No Primary Care Physician Classified Advertising Manager: Signed Normal [facility] Outgoing Inspector Office Visit Reporton 04-13-2025 Outgoing Inspector Office Visit Report [facility] [address], [address] [place] [address] OFFICE VISIT Date of Service: 04/13/25 MR#: [id number] Acct: [id number] Name: LAURIE RIGGS Rep #: [id number] : 1990 Provider: Dr. Julieta Barrett DO Age/Sex: 35/F Location: [facility] [place] Status: Signed Intake Vital Signs 04/01/25 16:00 04/07/25 13:40 04/13/25 13:00 Height 5 ft 3 in 5 ft 3 in 5 ft 3 in Weight: 147 lb 6 oz BMI 26.1 BP 107/65 Intake Visit Reasons: 36wk ob/nst Lint Cleaner Required: No Is patient in pain?: No [...] house number of children: 5 current occupation: [employer] current occupational exposures/hazards: No pets and [...] 5-6 times per week duration: 45-60 minutes/day milady/baptist: Cheondoism seatbelt use: sometimes do you feel safe [...] Date: 11/02/19 Last Updated by: Sandra Sorensen floatman instructed her to watch her BS HPI [...] KW- Transfer of care from Malena Wade gudion. Growth US done and EFW 100%. Had regular menses and was certain of LMP-did not have an early US. NOB labs today. Has been tr (more content not included)... Normal [facility] Screening beta-hemolytic Str eptococcus cultureOrdered By: Julieta Chavez on 04-13-2025 Beta-hemolytic Streptococcus culture Group B Beta Streptococcus is not isolated. [facility] Laboratory - Chemistry and C hemistry - challengeOrdered By: Ana Boss on 04-07-2025 Glucose Ql (U) Negative [facility] Laboratory - UrinalysisOrder ed By: Ana Boss on 04-07-2025 Protein Ql (U) Negative [facility] Outgoing Inspector Office Visit Reporton 04-07-2025 Outgoing Inspector Office Visit Report [facility] [address], [address] [place] [address] OFFICE VISIT Date of Service: 04/07/25 MR#: [id number] Acct: [id number] Name: LARUIE RIGGS Rep #: [id number] : 1990 Provider: TSERING valentin Age/Sex: 35/F Location: [facility] Status: Signed Intake Vital Signs 04/01/25 16:00 04/07/25 13:40 04/07/25 13:40 Height 5 ft 3 in 5 ft 3 in 5 ft 3 in Weight: 149 lb 2 oz 149 lb 4 oz BMI 26.4 26.4 BP 123/71 H 115/66 Intake Visit Reasons: 35wk nst only Lint Cleaner Required: No Is patient in pain?: No [...] house number of children: 5 current occupation: [employer] current occupational exposures/hazards: No pets and [...] 5-6 times per week duration: 45-60 minutes/day milady/baptist: Cheondoism seatbelt use: sometimes do you feel safe [...] Date: 11/02/19 Last Updated by: Sandra Sorensen floatman instructed her to watch her BS HPI [...] elevated num (more content not included)... Normal [facility] Laboratory - Chemistry and C hemistry - challengeOrdered By: Rhonda Fleming on 04-01-2025 Glucose Ql (U) Negative [facility] Laboratory - UrinalysisOrder ed By: Rhonda Fleming on 04-01-2025 Protein Ql (U) Negative [facility] Outgoing Inspector Office Visit Reporton 04-01-2025 Outgoing Inspector Office Visit Report [facility] [address], [address] [place] [address] OFFICE VISIT Date of Service: 04/01/25 MR#: [id number] Acct: [id number] Name: LAURIE RIGGS Rep #: [id number] : 1990 Provider: Dr. Rhonda bailey MD Age/Sex: 35/F Location: [facility] Status: Signed Intake Vital Signs 03/22/25 11:00 04/01/25 16:00 Height 5 ft 3 in 5 ft 3 in Weight: 149 lb 2 oz BMI 26.4 BP 123/71 H Intake Visit Reasons: 33wk ob per KW *co care Chief Complaint: 33 Week OB Lint Cleaner Required: No Is patient in pain?: No [...] house number of children: 5 current occupation: [employer] current occupational exposures/hazards: No pets and [...] 5-6 times per week duration: 45-60 minutes/day milady/baptist: Cheondoism seatbelt use: sometimes do you feel safe [...] Date: 11/02/19 Last Updated by: Sandra Sorensen floatman instructed her to watch her BS HPI [...] 2 mo (more content not included)... Normal [facility] Urine Cultureon 03-24-2025 URC Below infection leandro l. Mixed Gram Positive Organisms [place] Count 1000-10,000 MIXC Mixed contaminants. Submit a new specimen if indicated. Normal [facility] Comment on above: Performed By: #### M 100.2200 ####[facility] [address] [place], [address] Absolute lymphocyte countOrd ered By: Lauren Clinton on 03-22-2025 Lymphocytes Auto (Unsp spec) [#/Vol] 1.81 10*3/uL 0.83-4.51 [facility] Absolute neutrophil countOrd ered By: Lauren Clinton on 03-22-2025 Neutrophils (Bld) [#/Vol] 3.4 10*3/uL 2.0-7.7 [facility] Automated lymphocyte count a s percentage of total leukocytesOrdered By: Lauren Clinton on 03-22-2025 Lymphocytes/100 WBC Auto (Unsp spec) 32.6 % 19-41 [facility] Basophil percentageOrdered B y: Lauren Clinton on 03-22-2025 Basophils/100 WBC (Bld) 0.2 % 0-1 [facility] [place] CBC W/Diff, Automatedon 03-13 0-2024 Absolute Lymph 1.81 X10 3/uL Normal 0.83-4.51 [facility] Comment on above: Performed By: #### L 100.0100, L509.4006, L509.8002, BTS, L3890.6301, L501.9985, L3890.6102, L3890.6006 #### [facility] Laboratory [address] [place], [address] Absolute Neut 3.4 X10 3/uL Normal 2.0-7.7 [facility] Comment on above: Performed By: #### L 100.0100, L509.4006, L509.8002, BTS, L3890.6301, L501.9985, L3890.6102, L3890.6006 #### [facility] [address] [place], [address] Basophils/100 WBC (Bld) 0.2 % Normal 0-1 [facility] Comment on above: Performed By: #### L 100.0100, L509.4006, L509.8002, BTS, L3890.6301, L501.9985, L3890.6102, L3890.6006 #### [facility] [address] [place], [address] Eosinophils/100 WBC (Bld) 0.4 % Normal 0-5 [facility] Comment on above: Performed By: #### L 100.0100, L509.4006, L509.8002, BTS, L3890.6301, L501.9985, L3890.6102, L3890.6006 #### [facility] [address] [place], [address] Erythrocyte distribution width (RBC) [Ratio] 13.9 % Normal 11.6-14.6 [facility] Comment on above: Performed By: #### L 100.0100, L509.4006, L509.8002, BTS, L3890.6301, L501.9985, L3890.6102, L3890.6006 #### [facility] [address] [place], [address] Hematocrit (Bld) [Volume fraction] 36.5 % Low 37-47 [facility] Comment on above: Performed By: #### L 100.0100, L509.4006, L509.8002, BTS, L3890.6301, L501.9985, L3890.6102, L3890.6006 #### [facility] [address] [place], [address] Hemoglobin (Bld) [Mass/Vol] 12.5 g/dL Normal 12.0-15.0 [facility] Comment on above: Performed By: #### L 100.0100, L509.4006, L509.8002, BTS, L3890.6301, L501.9985, L3890.6102, L3890.6006 #### [facility] [address] [place], [address] IG% 0.400 Normal 0.0-0.9 [facility] Comment on above: Result Comment: IG% - Immature Granulocytes (promyelocytes, myelocytes and metamyelocytes) > 1% indicates that a LEFT SHIFT is Present. Performed By: #### L 100.0100, L509.4006, L509.8002, BTS, L3890.6301, L501.9985, L3890.6102, L3890.6006 #### [facility] [address] [place], [address] Lymphocytes/100 WBC (Bld) 32.6 % Normal 19-41 [facility] Comment on above: Performed By: #### L 100.0100, L509.4006, L509.8002, BTS, L3890.6301, L501.9985, L3890.6102, L3890.6006 #### [facility] [address] [place], [address] MCH (RBC) [Entitic mass] 32.0 pg Normal 27.0-32.0 [facility] Comment on above: Performed By: #### L 100.0100, L509.4006, L509.8002, BTS, L3890.6301, L501.9985, L3890.6102, L3890.6006 #### [facility] [address] [place], [address] MCHC (RBC) [Mass/Vol] 34.2 g/dL Normal 32-36 [facility] Comment on above: Performed By: #### L 100.0100, L509.4006, L509.8002, BTS, L3890.6301, L501.9985, L3890.6102, L3890.6006 #### [facility] [address] [place], [address] MCV (RBC) [Entitic vol] 93.4 fL Normal 81-99 [facility] Comment on above: Performed By: #### L 100.0100, L509.4006, L509.8002, BTS, L3890.6301, L501.9985, L3890.6102, L3890.6006 #### [facility] [address] [place], [address] Monocytes/100 WBC (Bld) 5.8 % Normal 0-10 [facility] Comment on above: Performed By: #### L 100.0100, L509.4006, L509.8002, BTS, L3890.6301, L501.9985, L3890.6102, L3890.6006 #### [facility] [address] [place], [address] Neutrophils/100 WBC (Bld) 60.6 % Normal 47-70 [facility] Comment on above: Performed By: #### L 100.0100, L509.4006, L509.8002, BTS, L3890.6301, L501.9985, L3890.6102, L3890.6006 #### [facility] [address] [place], [address] Nucleated RBC (Bld) [#/Vol] 0 10*3/uL Normal 0-5 [facility] Comment on above: Performed By: #### L 100.0100, L509.4006, L509.8002, BTS, L3890.6301, L501.9985, L3890.6102, L3890.6006 #### [facility] [address] [place], [address] Platelet mean volume (Bld) [Entitic vol] 9.9 fL Normal 6.2-12.0 [facility] Comment on above: Performed By: #### L 100.0100, L509.4006, L509.8002, BTS, L3890.6301, L501.9985, L3890.6102, L3890.6006 #### [facility] [address] [place], [address] Platelets (Bld) [#/Vol] 201 10*3/uL Normal 150-450 [facility] Comment on above: Performed By: #### L 100.0100, L509.4006, L509.8002, BTS, L3890.6301, L501.9985, L3890.6102, L3890.6006 #### [facility] [address] [place], [address] RBC (Bld) [#/Vol] 3.91 10*6/uL Low 4.2-5.4 [facility] Comment on above: Performed By: #### L 100.0100, L509.4006, L509.8002, BTS, L3890.6301, L501.9985, L3890.6102, L3890.6006 #### [facility] [address] [place], [address] RDW SD 46.5 fl High 35.1-43.9 [facility] Comment on above: Performed By: #### L 100.0100, L509.4006, L509.8002, BTS, L3890.6301, L501.9985, L3890.6102, L3890.6006 #### [facility] [address] [place], [address] WBC (Bld) [#/Vol] 5.6 10*3/uL Normal 4.4-11.0 [facility] Comment on above: Performed By: #### L 100.0100, L509.4006, L509.8002, BTS, L3890.6301, L501.9985, L3890.6102, L3890.6006 #### [facility] [address] [place], [address] Eosinophil percentageOrdered By: Lauren Clinton on 03-22-2025 Eosinophils/100 WBC (Bld) 0.4 % 0-5 [facility] Erythrocyte distribution wid th ratioOrdered By: Lauren Clinton on 03-22-2025 Erythrocyte distribution width (RBC) [Ratio] 13.9 % 11.6-14.6 [facility] Erythrocyte distribution wid th standard deviationOrdered By: Lauren Clinton on 03-22-2025 Erythrocyte distribution width (RBC) [Ratio] 46.5 fl High 35.1-43.9 [facility] HIVon 03-22-2025 HIV Non-Reactive Normal Nonreactive [facility] Comment on above: Result Comment: Non- Reactive Reactive Repeatedly reactive samples must be confirmed according to CDC recommended confirmatory algorithms. The subresults for either HIVAG or AHIV can be used as an aid in the selection of the confirmation algorithm for reactive samples. Send out specimens with Reactive results to [facility] for confirmation. Order the HIV antibody detection and differentiation: lc#[id number] Performed By: #### L 100.0100, L509.4006, L509.8002, BTS, L3890.6301, L501.9985, L3890.6102, L3890.6006 #### [facility] [address] [place], [place], [address] Hematocrit Auto (Bld) [Volum e fraction]Ordered By: Lauren Clinton on 03-22-2025 Hematocrit (Bld) [Volume fraction] 36.5 % Low 37-47 [facility] Hemoglobin A1con 03-22-2025 HbA1c (Bld) [Mass fraction] 4.7 % Normal <=5.6 [facility] Comment on above: Result Comment: Norm al < 5.7 % Prediabetic 5.7 - 6.4 % Diabetic >or= 6.5 % Please note range changes. Performed By: #### L 100.0100, L509.4006, L509.8002, BTS, L3890.6301, L501.9985, L3890.6102, L3890.6006 ####[facility] [address] [place], [place], [address] Hemoglobin A1c percentageOrd ered By: Lauren Clinton on 03-22-2025 HbA1c (Bld) [Mass fraction] 4.7 % <5.7 [facility] Comment on above: Normal < 5.7 % Predi abetic 5.7 - 6.4 % Diabetic >or= 6.5 % Please note range changes. Hemoglobin measurementOrdere d By: Lauren Clinton on 03-22-2025 Hemoglobin (Bld) [Mass/Vol] 12.5 g/dL 12.0-15.0 [facility] Hepatitis C Antibodyon 03-22 Hepatitis C Ab Non-Reactive Normal Nonreactive [facility] Comment on above: Result Comment: Reac tive: Presumptive evidence of antibodies to HCV. Follow CDC recommendations for supplemental testing. Non-Reactive: Antibodies to HCV were not detected; does not exclude the possibility of exposure to HCV Reactive Results are presumptive evidence of antibodies to HCV. Follow CDC recommendations for supplemental testing. Order confirmation testing: HCV Quant by PCR testing - HCVPCR #[id number] Non Reactive: < 0.8 Equivocal: >/= 0.8 to < 1.0 Reactive: >/= 1.[address] [facility] requires that a reactive/equivocal HCV antibody result be sent out for confirmation. HCV Quant by PCR testing. Performed By: #### L 100.0100, L509.4006, L509.8002, BTS, L3890.6301, L501.9985, L3890.6102, L3890.6006 ####[facility] [address] [place], [address] Immature granulocytes/100 WB C Auto (Bld)Ordered By: Lauren Clinton on 03-22-2025 Immature granulocytes/100 WBC (Bld) 0.400 % 0.0-0.9 [facility] Comment on above: IG% - Immature Granu locytes (promyelocytes, myelocytes and metamyelocytes) > 1% indicates that a LEFT SHIFT is Present. L3890.6102on 03-22-2025 HEP B Surf Ag Non-Reactive Normal Nonreactive [facility] Comment on above: Result Comment: Reac tive: Presumptive evidence of HBV. Repeatedly reactive samples must be confirmed using a neutralization test ([employer] HBsAg Confirmatory Test) Non-Reactive: HBsAg not detected; does not exclude the possibility of exposure to HBV Performed By: #### L 100.0100, L509.4006, L509.8002, BTS, L3890.6301, L501.9985, L3890.6102, L3890.6006 ####[facility] [address] [facility] [place], [address] L509.4006on 03-22-2025 Rubella IgG REAC Normal Nonreactive [facility] Comment on above: Result Comment: Anti body Result: Interpretation Non-Reactive: Non-Immune Reactive: Immune The following results were obtained with the [employer] Rubella IgG assay. Results from assays of other manufacturers cannot be used interchangeably. Performed By: #### L 100.0100, L509.4006, L509.8002, BTS, L3890.6301, L501.9985, L3890.6102, L3890.6006 #### [facility] [address] [place], [place], [id number] Laboratory - Chemistry and C hemistry - challengeOrdered By: Lauren Clinton on 03-22-2025 Glucose Ql (U) Negative [facility] Laboratory - Microbiology an d Antimicrobial susceptibilityOrdered By: Lauren Clinton on 03-22-2025 HBV surface Ag Ql (S) Non-Reactive Nonreactive [facility] Comment on above: Reactive: Presumptiv e evidence of HBV. Repeatedly reactive samples must be confirmed using a neutralization test ([employer] HBsAg Confirmatory Test)Non-Reactive: HBsAg not detected; does not exclude the possibility of exposure to HBV Laboratory - UrinalysisOrder ed By: Lauren Clinton on 03-22-2025 Protein Ql (U) Negative [facility] MCV (mean corpuscular volume ) determinationOrdered By: Lauren Clinton on 03-22-2025 MCV (RBC) [Entitic vol] 93.4 fL 81-99 [facility] Mean corpuscular hemoglobin (MCH) determinationOrdered By: Lauren Clinton on 03-22-2025 MCH (RBC) [Entitic mass] 32.0 pg 27.0-32.0 [facility] Mean corpuscular hemoglobin concentration (MCHC) determinationOrdered By: Lauren Clinton on 03-22-2025 MCHC (RBC) [Mass/Vol] 34.2 g/dL 32-36 [facility] Mean platelet volume determi nationOrdered By: Lauren Clinton on 03-22-2025 Platelet mean volume (Bld) [Entitic vol] 9.9 fL 6.2-12.0 [facility] Monocyte percentageOrdered B y: Lauren Clinton on 03-22-2025 Monocytes/100 WBC (Bld) 5.8 % 0-10 [facility] Neutrophil percentageOrdered By: Lauren Clinton on 03-22-2025 Neutrophils/100 WBC (Bld) 60.6 % 47-70 [facility] No Panel InformationOrdered By: Lauren Clinton on 03-22-2025 HIV (1&2) Antibody Non-Reactive Nonreactive [facility] Comment on above: Non-ReactiveReactive Repeatedly reactive samples must be confirmed according to CDC recommended confirmatory algorithms. The subresults for either HIVAG or AHIV can be used as an aid in the selection of the confirmation algorithm for reactive samples.Send out specimens with Reactive results to [facility] for confirmation.Order the HIV antibody detection and differentiation: #[id number] Nucleated red blood cell per centageOrdered By: Lauren Clinton on 03-22-2025 Nucleated RBC/100 WBC (Bld) [Ratio] 0 % 0-5 [facility] Outgoing Inspector Office Visit Reporton 03-22-2025 Outgoing Inspector Office Visit Report [facility] [address], [facility] [address] [place] [address] OFFICE VISIT Date of Service: 03/22/25 MR#: [id number] Acct: [id number] Name: RIGGSLAURIE Rep #: [id number] : 1990 Provider: VICKY Sanders [facility] Age/Sex: 35/F Location: [facility] Status: Signed Intake Vital Signs 03/22/25 11:00 Height 5 ft 3 in Weight: 153 lb 4 oz BMI 27.1 BP 115/69 Intake Visit Reasons: 32wk OB co-care Lint Cleaner Required: No Is patient in pain?: No [...] of children: 5 service: No current occupation: [employer] current occupational exposures/hazards: No pets and [...] 5-6 times per week duration: 45-60 minutes/day milady/baptist: Cheondoism seatbelt use: sometimes do you feel safe [...] 6oz Male none Home Reynaldo Burger 12/20/13 [place] 40 live - full term 7lbs 7oz [...] Date: 11/02/19 Last Updated by: Sandra Sorensen, floatman instructed her to watch her BS HPI [...] glucose testi (more content not included)... Normal [facility] Platelet countOrdered By: Quinton Clinton on 03-22-2025 Platelets (Bld) [#/Vol] 201 10*3/uL 150-450 [facility] RBC Auto (Bld) [#/Vol]Ordere d By: Lauren Clinton on 03-22-2025 RBC (Bld) [#/Vol] 3.91 10*6/uL Low 4.2-5.4 [facility] Syphilis Antibodieson 2024 Syphilis Abs Non-Reactive Normal Nonreactive [facility] Comment on above: Performed By: #### L 100.0100, L509.4006, L509.8002, BTS, L3890.6301, L501.9985, L3890.6102, L3890.6006 #### [facility] [address] [place], [place], [id number] Type AND Screenon 03-22-2025 ABO and Rh group Nom (Bld) Blood group O Rh(D) positive Normal [facility] Comment on above: Order Comment: PN Performed By: #### L 100.0100, L509.4006, L509.8002, BTS, L3890.6301, L501.9985, L3890.6102, L3890.6006 #### [facility] [address] [place], [address] Urine cultureOrdered By: You Clinton on 03-22-2025 Bacteria identified Cx Nom (U) Positive Abnormal [facility] White blood cell (WBC) count Ordered By: Lauren Clinton on 03-22-2025 WBC (Bld) [#/Vol] 5.6 10*3/uL 4.4-11.0 [facility] OB Limited With Biometricson 03-14-2025 OB Limited With Biometrics [facility] Services [address] [place] [address] OB Limited With Biometrics MR#: [id number] Acct: [id number] Name: LAURIE RIGGS Rep #: [id number] : 1990 F 35 From: Cody Reid MD PCP: Care Physician,No Primary Status: REG CLI Study: OB Limited With Biometrics Date of Exam: 03/14 Exam# [id number] Ordering Dr: Julieta Huffman DO PROCEDURE: OB [...] close clinical and imaging follow-up. Reading Location: [id number] CC: Dr. Julieta Huffman, DO; No Primary Care Physician Classified Advertising Manager: Signed [facility] Seating Captain Cytology Reporton 2021 Seating Captain Cytology Report . Pathology Reports Accession: Collected Date/Time: Received Date/Time: Pathologist: [id number] 11/06/2021 13:03 EST 11/07/2021 18:00 EST Seating Captain Cytology Report SPECIMEN: Specimen Description: Liquid Prep w/ HPV Specimen: Cervical Screening or Diagnostic: Screening RELEVANT HISTORY: LMP: : Yes [id number] SPECIMEN ADEQUACY: SATISFACTORY FOR EVALUATION ENDOCERVICAL/TRANSFORM ATIONAL [...] and evaluated with the assistance of the Online AgilityPrep Test Imaging System. Electronically Signed by Pathology report verified by [facility] Screened by: GL Electronically signed by Carina Yanez Sign-Out Date: 11/12/2021 16:03 Performing Lab: [facility], [address] [place] [address] Disclaimer The Pap test is a screening test for cervical cancer. As evidenced by published data, it is subject to both inherent false negative and false positive results. Your patient's results should be interpreted in context with pertinent clinical history including gynecological examination. Normal [facility] ([place]) HPVon 11-12-2021 HPV Interp Normal See Interp HPVN [facility] ([place]) Comment on above: Order Comment: Order placed by AP_HPV_ORDER rule from [id number] Result Comment: High Risk HPV Typing: NEGATIVE [...] HPVN Performed By: #### H PV #### [place] [address] HPV Source Cervix Normal [facility] ([place]) Comment on above: Order Comment: Order placed by AP_HPV_ORDER rule from [id number] Performed By: #### H PV #### [place] [address] CTPCRon 11-08-2021 C. trachomatis Interp Normal See CT Interp N [facility] ([place]) Comment on above: Result Comment: C. t rachomatis DNA not detected. Specimen is presumptive negative for C. trachomatis. A negative result does not preclude C. trachomatis infection because results depend on adequate specimen collection, absence of inhibitors, and sufficient DNA to be detected. See CT Interp N Performed By: #### C TPCR, NGPCR1 #### [place] [address] C.trachomatis PCR Negative Normal Negative [facility] ([place]) Comment on above: Result Comment: Newman sport tube received with two swabs. Review collection procedure. Inappropriate collection may cause aberrant results. Molecular (PCR) assay performed on the Tyler Siri 4800 system. Performed By: #### C TPCR, NGPCR1 #### [place] [address] Chlam Source Cervix Normal [facility] ([place]) Comment on above: Performed By: #### C TPCR, NGPCR1 #### [place] [address] [id number] 11-08-2021 GC PCR Source Cervix Normal [facility] ([place]) Comment on above: Performed By: #### C TPCR, NGPCR1 #### [place] [address] N. gonorrhoeae (PCR) Negative Normal Negative [facility] ([place]) Comment on above: Result Comment: Newman sport tube received with two swabs. Review collection procedure. Inappropriate collection may cause aberrant results. Molecular (PCR) assay performed on the Tyler Siri 4800 System. Performed By: #### C TPCR, NGPCR1 #### [place] [address] N. gonorrhoeae Interp Normal See NG Interp N [facility] ([place]) Comment on above: Result Comment: N. g onorrhoeae DNA not detected. Specimen is presumptive negative for N. gonorrhoeae. A negative result does not preclude Neisseria gonorrhoeae infection because results depend on adequate specimen collection, absence of inhibitors, and sufficient DNA to be detected. See NG Interp N Performed By: #### C TPCR, NGPCR1 #### [place] [address] LABORATORYOrdered By: Pilar Goodrich on 11-06-2021 C. [...] MD , Pathologist (Case signed 12/08/2018) Normal [facility] Vital Signs Date Time Vital Sign Value Performing Clinician Facility 04-27-2025 13:03-0400 Body height 160.02 cm No Primary Care Physician [facility] 04-27-2025 13:03-0400 Body mass index (BMI) [Ratio] 26.1 kg/m2 No Primary Care Physician [facility] 04-27-2025 13:03-0400 Body weight 66.84 kg No Primary Care Physician [facility] 04-27-2025 13:03-0400 Diastolic blood pressure 68 mm[Hg] No Primary Care Physician [facility] 04-27-2025 13:03-0400 Systolic blood pressure 116 mm[Hg] No Primary Care Physician [facility] 04-22-2025 13:38-0400 Body height 160.02 cm No Primary Care Physician [facility] 04-22-2025 13:38-0400 Body mass index (BMI) [Ratio] 26.4 kg/m2 No Primary Care Physician [facility] 04-22-2025 13:38-0400 Body weight 67.64 kg No Primary Care Physician [facility] 04-22-2025 13:38-0400 Diastolic blood pressure 67 mm[Hg] No Primary Care Physician [facility] 04-22-2025 13:38-0400 Systolic blood pressure 123 mm[Hg] No Primary Care Physician [facility] 04-13-2025 13:00-0400 Body height 160.02 cm No Primary Care Physician [facility] 04-13-2025 13:00-0400 Body mass index (BMI) [Ratio] 26.1 kg/m2 No Primary Care Physician [facility] 04-13-2025 13:00-0400 Body weight 66.84 kg No Primary Care Physician [facility] 04-13-2025 13:00-0400 Diastolic blood pressure 65 mm[Hg] No Primary Care Physician [facility] 04-13-2025 13:00-0400 Systolic blood pressure 107 mm[Hg] No Primary Care Physician [facility] 04-07-2025 13:40-0400 Body height 160.02 cm No Primary Care Physician [facility] 04-07-2025 13:40-0400 Body mass index (BMI) [Ratio] 26.4 kg/m2 No Primary Care Physician [facility] 04-07-2025 13:40-0400 Body weight 67.69 kg No Primary Care Physician [facility] 04-07-2025 13:40-0400 Diastolic blood pressure 66 mm[Hg] No Primary Care Physician [facility] 04-07-2025 13:40-0400 Systolic blood pressure 115 mm[Hg] No Primary Care Physician [facility] 04-01-2025 16:00-0400 Body height 160.02 cm No Primary Care Physician [facility] 04-01-2025 16:00-0400 Body mass index (BMI) [Ratio] 26.4 kg/m2 No Primary Care Physician [facility] 04-01-2025 16:00-0400 Body weight 67.64 kg No Primary Care Physician [facility] 04-01-2025 16:00-0400 Diastolic blood pressure 71 mm[Hg] No Primary Care Physician [facility] 04-01-2025 16:00-0400 Systolic blood pressure 123 mm[Hg] No Primary Care Physician [facility] 03-22-2025 11:00-0400 Body height 160.02 cm No Primary Care Physician [facility] 03-22-2025 11:00-0400 Body mass index (BMI) [Ratio] 27.1 kg/m2 No Primary Care Physician [facility] 03-22-2025 11:00-0400 Body weight 69.51 kg No Primary Care Physician [facility] 03-22-2025 11:00-0400 Diastolic blood pressure 69 mm[Hg] No Primary Care Physician [facility] 03-22-2025 11:00-0400 Systolic blood pressure 115 mm[Hg] No Primary Care Physician [facility] 01-05-2019 13:45-0400 BMI (Body Mass Index) 25.61 kg/m2 [facility] 01-05-2019 13:45-0400 Body Temperature 98.49 [degF] [facility] 01-05-2019 13:45-0400 BP Diastolic 77 mm[Hg] [facility] 01-05-2019 13:45-0400 BP Systolic 125 mm[Hg] [facility] 01-05-2019 13:45-0400 Height 160 cm [facility] 01-05-2019 13:45-0400 Pulse (Heart Rate) 76 /min [facility] 01-05-2019 13:45-0400 Pulse Oximetry 98 % [facility] 01-05-2019 13:45-0400 Weight 65.59 kg [facility] 12-04-2018 15:18-0500 BMI (Body Mass Index) 26.31 kg/m2 [facility] 12-04-2018 15:18-0500 Body Temperature 98.4 [degF] [facility] 12-04-2018 15:18-0500 BP Diastolic 66 mm[Hg] [facility] 12-04-2018 15:18-0500 BP Systolic 122 mm[Hg] [facility] 12-04-2018 15:18-0500 Height 160 cm [facility] 12-04-2018 15:18-0500 Pulse (Heart Rate) 87 /min [facility] 12-04-2018 15:18-0500 Pulse Oximetry 98 % [facility] 12-04-2018 15:18-0500 Weight 67.36 kg [facility] 11-19-2018 14:54-0500 BMI (Body Mass Index) 27.28 kg/m2 [facility] 11-19-2018 14:54-0500 Body Temperature 98.49 [degF] [facility] 11-19-2018 14:54-0500 BP Diastolic 68 mm[Hg] [facility] 11-19-2018 14:54-0500 BP Systolic 118 mm[Hg] [facility] 11-19-2018 14:54-0500 Height 160 cm [facility] 11-19-2018 14:54-0500 Pulse (Heart Rate) 69 /min [facility] 11-19-2018 14:54-0500 Pulse Oximetry 100 % [facility] 11-19-2018 14:54-0500 Weight 69.85 kg [facility] 12-15-2017 13:47-0500 BMI (Body Mass Index) 26.22 kg/m2 Hoda Prykhodko [facility] 12-15-2017 13:47-0500 BP Diastolic 74 mm[Hg] Hoda Prykhodko [facility] 12-15-2017 13:47-0500 BP Systolic 124 mm[Hg] Hoda Prykhodko [facility] 12-15-2017 13:47-0500 Height 160 cm Hoda Prykhodko [facility] 12-15-2017 13:47-0500 Pulse (Heart Rate) 77 /min Hoda Prykhodko [facility] 12-15-2017 13:47-0500 Pulse Oximetry 99 % Hoda Prykhodko [facility] 12-15-2017 13:470500 Weight 67.13 kg Hoda Padron [facility] Encounters Encounter Date Encounter Type Care Provider Facility Start: 04-27-2025 End: 04-27-2025 ambulatory No Primary Care Physician -[facility] Start: 04-27-2025 End: 04-27-[address] Rhonda Fleming MD -[facility] Work Phone: Start: 04-22-2025 End: 04-22-2025 Patient encounter procedure Lauren Clinton CNM -[facility] Work Phone: Start: 04-22-2025 End: 04-22-2025 ambulatory No Primary Care Physician -[facility] Start: 04-13-2025 End: 04-13-[address] Julieta Huffman DO -[facility] Work Phone: Start: 04-13-2025 End: 04-13-2025 ambulatory No Primary Care Physician -[facility] Start: 04-13-2025 End: 04-13-2025 ambulatory No Primary Care Physician -[facility] Start: 04-13-2025 End: 04-13-[address] Rhonda Fleming MD -[facility] Work Phone: Start: 04-13-2025 End: 04-13-2025 ambulatory Rhonda Fleming Facility:[facility] Start: 04-07-2025 End: 04-07-2025 Patient encounter procedure Ana CAGLE -[facility] Work Phone: Start: 04-07-2025 End: 04-07-2025 ambulatory No Primary Care Physician [facility] Work Phone: Start: 04-01-2025 End: 04-01-[address] Rhonda Fleming MD -[facility] Work Phone: Start: 04-01-2025 End: 04-01-2025 ambulatory No Primary Care Physician [facility] Work Phone: Start: 03-22-2025 End: 03-22-2025 Patient encounter procedure Lauren Clinton CNM -[facility] Work Phone: Start: 03-22-2025 End: 03-22-2025 ambulatory No Primary Care Physician [facility] Work Phone: Start: 03-22-2025 End: 03-22-2025 ambulatory Lauren Clinton Facility:[facility] Start: 03-14-2025 End: 03-14-2025 ambulatory No Primary Care Physician [facility] Work Phone: Start: 03-14-2025 End: 03-14-[address] Julieta Huffman DO -[facility] Work Phone: Start: 03-14-2025 End: 03-14-2025 ambulatory Julieta Huffman Facility:[facility] Start: 03-11-2025 Non-patient / Non-visit Sandra Sorensen RN -[facility] Work Phone: Start: 03-11-2025 ambulatory Sandra Sorensen Facility :[facility] Start: 06-07-2022 ambulatory HODA THORNEKEN [facility] Start: 11-06-2021 End: 11-10-2021 Outreach Lab MARCO ARMENTA MD [facility] Start: 01-05-2019 End: 01-05-2019 Office outpatient visit 10 minutes Carlos Begum Work Phone: [facility] Comment on above: Anal polyp (Primary Dx) Start: 12-04-2018 End: 12-04-2018 Patient encounter procedure Carlos Begum Work Phone: [facility] Comment on above: Rectal polyp (Primar y Dx) Start: 12-04-2018 Patient encounter procedure Carlos Begum Facility:[facility] Start: 12-04-2018 End: 12-04-2018 Patient encounter procedure Carlos Begum Work Phone: [facility] Start: 11-19-2018 End: 11-19-2018 Office outpatient new 20 minutes Marlin Springer Work Phone: [facility] Comment on above: Rectal polyp (Primar y Dx) Start: 12-15-2017 Office/outpatient visit, new, level 3 Luda Marissa Donis Work Phone: [facility] Procedures Date [...] HCV Quant by PCR testing - HCVPCR lc#[id number] Non Reactive: < 0.8 Equivocal: >/= 0.8 [...] Author Start: 04-13-2025 Ultrasound scan for growth [facility] Start: 03-22-2025 Bacteria identified in Urine by Culture Urine Culture [facility] Start: 12-04-2018 End: 12-04-2018 Office Visit 12/04/2018 Office Visit General Surgery Carlos Begum MD [address] [facility] [address] [place] [address] [phone] [facility] Start: 06-13-2018 Influenza vaccination given SEQUENTIAL INFLUENZA VACCINE (#1) [facility] Start: 01-19-2018 Ambulatory 01/19/2018 Office Visit Otolaryngology Hoda Padron MD [address] [facility] [address] [facility] [address] [place] [address] [phone] [facility] Start: 06-13-2017 Influenza vaccination SEQUENTIAL INFLUENZA VACCINE (#1) [facility] Start: 1990 Screening for malignant neoplasm of cervix PAP SMEAR [facility] Start: 1990 Tetanus vaccination TETANUS EVERY 10 YR [facility] Erythrocyte mean corpuscular volume determination [facility] Hematocrit [Volume Fraction] of Blood [facility] Hemoglobin [Mass/vol ume] in Blood [facility] Hemoglobin A1c/Hemoglobin.total in Blood [facility] Hepatitis B virus surface Ag [Presence] in Serum [facility] Hepatitis C antibody measurement [facility] Leukocytes [#/volume ] in Blood [facility] Mean corpuscular hemoglobin concentration determination [facility] Mean corpuscular hemoglobin determination [facility] Neutrophil count [facility] Neutrophil percent differential count [facility] Platelets [#/volume] in Blood [facility] Red blood cell count [facility] Red cell distributio n width determination [facility] Rubella IgG measurement [facility] Serologic test for syphilis [facility] Streptococcus agalac tiae [Presence] in Unspecified specimen by Organism specific culture [facility] Ultrasound scan for growth [facility] Urine culture [facility] Payers Date Payer Category Payer Self-pay [id number] Unknown [id number] Self-pay [id number] Unknown [id number] 2.16.8 [id number] Unknown [id number] 2.16.8 [id number] Unknown [id number] 2.16.8 [id number] Unknown [id number] 2.16.8 [id number] Unknown [id number] 2.16.8 [id number] Unknown [id number] 2.16.8 [id number] Unknown [id number] 2.16.8 [id number] Unknown [id number] 2.16.8 [id number] Unknown [id number] 2.16.8 [id number] Social History Date Type Detail Facility Start: 12-15-2017 End: 03-11-2025 Tobacco smoking status [facility] Never smoker [facility] Sex Assigned At Not on file [facility] Start: 1990 Sex Assigned At Female [facility] Clinical Notes 03-14-2025 to 04-27-2025 Note Date & Type Note Facility 04-27-2025 Progress note [facility] 04-22-2025 Progress note [facility] 04-22-2025 Progress note Note Date/Time April 22, 2025 2:25pm [facility] [address] [place] [address], [address] [place] [address] OFFICE VISIT Date of Service: 04/22/25 MR#: [id number] Acct: [id number] Name: LAURIE RIGGS Rep #: [id number] : 1990 Provider: VICKY Clinton Age/Sex: 35/F Location: [facility] Status: Signed Intake Vital Signs 04/01/25 16:00 04/13/25 13:00 04/22/25 13:38 Height 5 ft 3 in 5 ft 3 in 5 ft 3 in Weight: 147 lb 6 oz 149 lb 2 oz BMI 26.1 26.4 BP 107/65 123/67 H Intake Visit Reasons: 37wk ob/nst Chief Complaint: 37wk ob/nst Lint Cleaner Required: No Is patient in pain?: No [...] house number of children: 5 current occupation: [employer] current occupational exposures/hazards: No pets and [...] 5-6 times per week duration: 45-60 minutes/day milady/baptist: Cheondoism seatbelt use: sometimes do you feel safe [...] - full term 8lbs 8oz Female none [facility] Reynaldo Burger 11/02/19 [place] 40 live - full term 7lbs 7oz Female none [facility] Reynaldo Burger 04/04/22 S[place] 40 live - full term 7lbs 14oz Female none Home Reynaldo Burger Delivery Date: 11/02/19 Last Updated by: Sandra Sorensen floatman instructed her to watch her BS HPI [...] gestation: 37 weeks CPT Codes Non-Stress Test (63580) Assessment and Plan Assessment and Plan (1) [...] trimester Comment: Neg gbs PRR (waiting on [facility]) , CALEB 05/10/25, PC: Sarah Sal Andrea, Emily & Sade, : Reynaldo Burger (6) : Status: Acute Qualifiers: Weeks of gestation: 37 weeks Qualified Code(s): Z3A.37 - 37 weeks gestation of Comment: [Co-Care w/Malena Wiley, RON @ [facility]] No genetic/carrier testing done Orders: Orders POC [...] this visit. GA appropriate handout given. 04/22/25 1998 <Electronically signed by Lauren house CNM> Date _ Lauren Oz PERRY Cosigner Signature: Date (if applicable) CC: ~ [facility] [employer] Work Phone: 1(406) 245-418507-07-2025 Radiology Diagnostic study note [facility] Services [address] [place], [place] [address] OB Limited With Biometrics MR#: [id number] Acct: [id number] Name: LAURIE RIGGS Rep #: [id number] : 1990 F 35 From: Baldo Velez MD PCP: Care Physician,No Primary Status: REG CLI Study:OB Limited With Biometrics Date of Exam : 04/13/25 Exam# [id number] Ordering Dr: Rhonda Estrella MD PROCEDURE: OB [...] of 37 weeks and 1day. Reading Location: [place] [address] CC: Dr. Rhonda Fleming MD; No Primary Care Physician ~ Classified Advertising Manager: Signed [facility]06-20-2025 Progress [facility] [address], [address] [place] [address] OFFICE VISIT Date of Service: 04/01/25 MR#: [id number] Acct: [id number] Name: LAURIE RIGGS Rep #: [id number] : 1990 Provider: Dr. Ministerio Fleming MD Age/Sex: 35/F Location: [facility] Status: Signed Intake Vital Signs 03/22/25 11:00 04/01/25 16:00 Height 5 ft 3 in 5 ft 3 in Weight: 149 lb 2 oz BMI 26.4 BP 123/71 H Intake Visit Reasons: 33wk ob per KW *co care Chief Complaint: 33 Week OB Lint Cleaner Required: No Is patient in pain?: No [...] house number of children: 5 current occupation: [employer] current occupational exposures/hazards: No pets and [...] 5-6 times per week duration: 45-60 minutes/day milady/baptist: Cheondoism seatbelt use: sometimes do you feel safe [...] Male no ne Home Reynaldo Burger 12/20/13 [place] 40 live - full term 7lbs 7oz Female none Home Reynaldo Burger 12/15/16 Domin[place] 40 live - full term 8lbs 8oz Female none [facility] Reynaldo Burger 11/02/19 Elizabeth 40 live - full term 7lbs 7oz Female none [facility] Reynaldo Burger 04/04/22 Sade 40 live - full term 7lbs 14oz Female none Home Reynaldo Burger Delivery Date: 11/02/19 Last Updated by: Sandra Sorenesn floatman instructed her to watch her BS HPI [...] : Status: Acute Comment: PRR (waiting on [facility]) , CALEB 05/10/25, PC: Sarah Sal Andrea, [...] Cosigner Signature: Date (if applicable) CC: ~ [facility]06-20-2025 Progress note Author Rhonda Fleming [facility] Note Date/Time April 01, 2025 4:59 pm [facility] [address] [place] [address], [address] [place] [address] OFFICE VISIT Date of Service: 04/01/25 MR#: [id number] Acct: [id number] Name: LAURIE RIGGS Rep #: [id number] : 1990 Provider: Dr. Ministerio Fleming MD Age/Sex: 35/F Location: [facility] Status: Signed Intake Vital Signs 03/22/25 11:00 04/01/25 16:00 Height 5 ft 3 in 5 ft 3 in Weight: 149 lb 2 oz BMI 26.4 BP 123/71 H Intake Visit Reasons: 33wk ob per KW *co care Chief Complaint: 33 Week OB Lint Cleaner Required: No Is patient in pain?: No [...] house number of children: 5 current occupation: [employer] current occupational exposures/hazards: No pets and [...] 5-6 times per week duration: 45-60 minutes/day milady/baptist: Cheondoism seatbelt use: sometimes do you feel safe [...] - full term 8lbs 8oz Female none [facility] Reynaldo Burger 11/02/19 Elizabeth 40 live - full term 7lbs 7oz Female none [facility] Reynaldo Burger 04/04/22 Sade 40 live - full term 7lbs 14oz Female none Home Liam Delivery Date: 11/02/19 Last Updated by: Sandra Sorensen, floatman instructed her to watch her BS HPI [...] of Comment: [Co-Care w/Malena Wiley, RON @ [facility]] No genetic/carrier testing done (2) Supervision of [...] POC Urinalysis 2 Dip (Clinic) Today 04/01/25 1506 <Electronically signed by Rhonda mata MD> Date _ Rhonda Fleming MD Cosigner Signature: Date (if applicable) CC: ~ [facility] Work Phone: 1(512) 142-310506-10-2025 Evaluation note* Diagnosis Onset Date Resolution Status Admit Date Hx gestational diabetes acute J 2024 10:57am LGA (large for gestational a ge) fetus acute March 22, 2025 10:57am Polyhydramnios affecting acute March 22, 2025 10:57am acute March 22 10:57am Supervision of normal acut e March 22, 2025 10:57am [facility] Work Phone: 1(795) 356-169006-10-2025 Evaluation note* Diagnosis Onset Date Resolution Status [...] normal acut e April 01, 2025 3:56pm [facility] Work Phone: 1(823) 122-162606-10-2025 Evaluation note* Diagnosis Onset Date Resolution Status [...] 2025 1:36pm Hx gestational diabetes acute J [facility] 2024 1:36pm LGA (large for gestational a ge) fetus acute April 07, 2025 1:36pm Polyhydramnios affecting acute April 07, 2025 1:36pm acute April 07 1:36pm Supervision of normal acut e April 07, 2025 1:36pm [facility] Work Phone: 1(659) 492-339906-10-2025 Evaluation note* Diagnosis Onset Date Resolution Status Admit Date Hx gestational diabetes acute [facility] 2024 10:57am LGA (large for gestational [...] 2025 1:36pm Hx gestational diabetes acute J [facility] 2024 1:36pm LGA (large for gestational a [...] normal acut e April 13, 2025 12:32pm [facility] Work Phone: 1(365) 319-495106-10-2025 Evaluation note* Diagnosis Onset Date Resolution Status Admit Date Hx gestational diabetes acute [facility] 2024 10:57am LGA (large for gestational a ge) fetus acute March 22, 2025 10:57am Polyhydramnios affecting acute March 22, 2025 10:57am acute March 22 10:57am Supervision of normal acut e March 22, 2025 10:57am Gestational diabetes mellitu s (GDM) acute April 01, 2025 3:56pm Hx gestational diabetes acute [facility] 2024 3:56pm LGA (large for gestational a ge) fetus acute April 01, 2025 3:56pm Polyhydramnios affecting acute April 01, 2025 3:56pm acute April 01 3:56pm Supervision of normal acut e April 01, 2025 3:56pm Gestational diabetes mellitu s (GDM) acute April 07, 2025 1:36pm Hx gestational diabetes acute [facility] 2024 1:36pm LGA (large for gestational a ge) fetus acute April 07, 2025 1:36pm Polyhydramnios affecting acute April 07, 2025 1:36pm acute April 07 1:36pm Supervision of normal acut e April 07, 2025 1:36pm Gestational diabetes mellitu s (GDM) acute April 13, 2025 1 2:32pm Hx gestational diabetes acute [facility] 2024 12:32pm LGA (large for gestational a ge) fetus acute April 13, 2025 1 2:32pm Polyhydramnios affecting acute April 13, 2025 1 2:32pm acute April 13, 2025 12:32pm Supervision of normal acut e April 13, 2025 12:32pm Gestational diabetes mellitu s (GDM) acute April 22, 2025 1:31pm Hx gestational diabetes acute [facility] 2024 1:31pm LGA (large for gestational a ge) fetus acute April 22, 2025 1:31pm Polyhydramnios affecting acute April 22, 2025 1:31pm acute April 22 1:31pm Supervision of normal acut e April 22, 2025 1:31pm [facility] Work Phone: 1(624) 721-109306-10-2025 Evaluation note* Diagnosis Onset Date Resolution Status Admit Date Hx gestational diabetes acute J [facility] 2024 10:57am LGA (large for gestational a ge) fetus acute March 22, 2025 10:57am Polyhydramnios affecting acute March 22, 2025 10:57am acute March 22 10:57am Supervision of normal acut e March 22, 2025 10:57am Gestational diabetes mellitu s (GDM) acute April 01, 2025 3:56pm Hx gestational diabetes acute J [facility] 2024 3:56pm LGA (large for gestational a ge) fetus acute April 01, 2025 3:56pm Polyhydramnios affecting acute April 01, 2025 3:56pm acute April 01 3:56pm Supervision of normal acut e April 01, 2025 3:56pm Gestational diabetes mellitu s (GDM) acute April 07, 2025 1:36pm Hx gestational diabetes acute [facility] 2024 1:36pm LGA (large for gestational a ge) fetus acute April 07, 2025 1:36pm Polyhydramnios affecting acute April 07, 2025 1:36pm acute April 07 1:36pm Supervision of normal acut e April 07, 2025 1:36pm Gestational diabetes mellitu s (GDM) acute April 13, 2025 1 2:32pm Hx gestational diabetes acute J [facility] 2024 12:32pm LGA (large for gestational a [...] normal acut e April 27, 2025 12:53pm [facility] Work Phone: 1(150) 106-975806-10-2025 Progress [facility] [address] [place] [address], [address] [place] [address] OFFICE VISIT Date of Service: 03/22/25 MR#: [id number] Acct: [id number] Name: LAURIE RIGGS Rep #: [id number] : 1990 Provider: VICKY Clinton Age/Sex: 35/F Location: [facility] Status: Signed Intake Vital Signs 03/22/25 11:00 Height 5 ft 3 in Weight: 153 lb 4 oz BMI 27.1 BP 115/69 Intake Visit Reasons: 32wk OB co-care Lint Cleaner Required: No Is patient in pain?: No [...] of children: 5 service: No current occupation: [employer] current occupational exposures/hazards: No pets and [...] 5-6 times per week duration: 45-60 minutes/day milady/baptist: Cheondoism seatbelt use: sometimes do you feel safe [...] - full term 8lbs 8oz Female none [facility] Reynaldo Burger 11/02/19 [place] 40 live - full term 7lbs 7oz Female none [facility] Reynaldo Burger 04/04/22 Sade 40 live - [...] Cosigner Signature: Date (if applicable) CC: ~ [facility]06-02-2025 Radiology Diagnostic study note [facility] [address] [place], [place] [id number] OB Limited With Biometrics MR#: [id number] Acct: [id number] Name: LAURIE RIGGS Rep #: [id number] : 1990 F 35 From: Yue Reid MD PCP: Care Physician,No Primary Status: REG CLI Study:OB Limited With Biometrics Date of Exam : 03/14/25 Exam# [id number] Ordering Dr: Julieta Sotelo DO PROCEDURE: OB [...] Huffman DO; No Primary Care Physician ~ Classified Advertising Manager: Signed [facility] Future App[facility]ments Appointment Date:12/04/2021 10:30:00 AM Scheduled Provider:ELEANOR ESTRADA Location:[facility] Appointment Type: OV OB Routine Follow [...] Antibody 11/06/21 * Complete Metabolic Panel 11/06/21 [facility] Evaluation noteNo assessment information available [facility] Work Phone: Evaluation note* Diagnosis Onset Date Resolution Status Admit Date Hx gestational diabetes acute J 2024 10:57am LGA (large for gestational a ge) fetus acute March 22, 2025 10:57am Polyhydramnios affecting acute March 22, 2025 10:57am acute March 22 10:57am Supervision of normal acut e March 22, 2025 10:57am [facility] Work Phone: Hospital course Narrative No data available for this section [facility] Discharge instructions No data available for this section [facility] Progress note Author Lauren Clinton [facility] Note Date/Time March 22, 2025 11:4 6am [facility] [address] [place] [address], [address] [place] [address] OFFICE VISIT Date of Service: 03/22/25 MR#: [id number] Acct: [id number] Name: RIGGSLAURIE Rep #: [id number] : 1990 Provider: VICKY Clinton Age/Sex: 35/F Location: [facility] Status: Signed Intake Vital Signs 03/22/25 11:00 Height 5 ft 3 in Weight: 153 lb 4 oz BMI 27.1 BP 115/69 Intake Visit Reasons: 32wk OB co-care Lint Cleaner Required: No Is patient in pain?: No [...] of children: 5 service: No current occupation: [employer] current occupational exposures/hazards: No pets and [...] 5-6 times per week duration: 45-60 minutes/day milady/baptist: Cheondoism seatbelt use: sometimes do you feel safe [...] - full term 7lbs 7oz Female none [place] Reynaldo Burger 12/15/16 Domin[place] 40 live - full term 8lbs 8oz Female none [facility] David 11/02/19 [place] 40 live - full term 7lbs 7oz Female none [place] Krystin Burger 04/04/22 Sade 40 live - full term 7lbs 14oz Female none Home Reynaldo Burger Delivery Date: 11/02/19 Last Updated by: Sandra Sorensen, floatman instructed her to watch her BS HPI [...] Cosigner Signature: Date (if applicable) CC: ~ [facility] Work Phone: Progress note Author Rhonda Fleming [facility] Note Date/Time April 27, 2025 1:44 pm [facility] [address], [address] [place] [address] OFFICE VISIT Date of Service: 04/27/25 MR#: [id number] Acct: [id number] Name: LAURIE RIGGS Rep #: [id number] : 1990 Provider: Dr. Ministerio Fleming MD Age/Sex: 35/F Location: [facility] Status: Signed Intake Vital Signs 04/01/25 16:00 04/22/25 13:38 04/27/25 13:03 Height 5 ft 3 in 5 ft 3 in 5 ft 3 in Weight: 149 lb 2 oz 147 lb 6 oz BMI 26.4 26.1 BP 123/67 H 116/68 Intake Visit Reasons: 38wk ob/nst Lint Cleaner Required: No Is patient in pain?: No [...] house number of children: 5 current occupation: [employer] current occupational exposures/hazards: No pets and [...] 5-6 times per week duration: 45-60 minutes/day milady/baptist: Cheondoism seatbelt use: sometimes do you feel safe [...] - full term 8lbs 8oz Female none [facility] Reynaldo Burger 11/02/19 [place] 40 live - full term 7lbs 7oz Female none [facility] Reynaldo Burger 04/04/22 Sade 40 live - full term 7lbs 14oz Female none Home Reynaldo Burger Delivery Date: 11/02/19 Last Updated by: Sandra Sorensen floatman instructed her to watch her BS HPI [...] gestation: 38 weeks CPT Codes Non-Stress Test (75538) Assessment and Plan Assessment and Plan (1) [...] Cosign Signature: Date (if applicable) CC: ~ [facility] Work Phone: Reason for referral (narrative)No reason [...] Diagnoses Rectal polyp Marlin Springer MD [address] [id number] Carlos Begum MD [address] [place] [address] History of Present Illness * Carlos Begum [...] that this could be done at the [place] office where we have the proper exam table and instruments todo this, or it could be done in the operating room. She is concerned about expense and would prefernot to have to go to the operating room. We will arrange for this in the [place] office. in this encounter* Carlos Begum MD [...] on file. For more information, please contact: [place] [address] Patient has advance care planning documents on file. For more information, please contact: [place] [address] No Advanced Directives Records Found Patient has advance care planning documents on file. For more information, please contact: [place] [address] No Advanced Directives Records FoundNo Advanced Directives [...] Diagnoses Rectal polyp Marlin Springer MD [address] [facility] [address] [place] [address] Carlos Begum MD [address] [place] [address] Reason Comments Procedure Reason Comments Follow-up INFORMATION SOURCE (unrecogn ized section and content) DATE CREATED AUTHOR 12/10/2018 [facility] DATE CREATED AUTHOR AUTHOR'S ORGANIZ ATION 11/13/2021 [facility] ([place]) DATE CREATED AUTHOR AUTHOR'S ORGANIZ ATION [facility] DATE CREATED AUTHOR AUTHOR'S ORGANIZ ATION 04/22/2025 [facility] Care Teams (unrecognized sec tion and content) [...] End: April 07, 2025 Ana Boss NP, FINISH MILL OPERATOR-C Attending Provider Active Start: April 07, 2025 [...] BE BASED ON THE PRIMARY CLINICAL RECORDS. [employer] provides no warranty or guarantee of the accuracy or completeness of information in this document.
--- NOTE | 2025-04-28 02:30 | HP.PCM.OB_ITS ---
HPI - General General Date of Admission: 04/28/25 HPI Narrative LAURIE RIGGS, is a 35 F who presents IAL with regular ctx no vb lof good fm Maternal Data Information CALEB Calculator Estimated Delivery Date Method Current WG Current Estimate 05/10/25 LMP (Certain) 38w 2d Other Estimates 05/10/25 Manual 38w 2d PFSH PFSH Home Medications ?Medication ?Instructions ?Recorded ?Last Taken ?Type docosahexaenoic acid 200 mg mg PO DAILY 02/1204/28/25 History capsule ( DHA) ferrous sulfate 325 mg (65 mg 325 mg PO QDAY anemia 04/27/25 History iron) tablet (Feosol) metformin 500 mg tablet 500 mg PO BID gdm #60 tabs 0 04/13/25 04/27/25 Rx Allergy/AdvReac Type Severity Reaction Status Date / Time No Known Allergies Allergy Verified 04/28/25 01:28 Surgical History H/O eye surgery History of tonsillectomy and adenoidectomy Social History adopted: No household members: spouse and children housing: house number of children: 5 current occupation: [employer] current occupational exposures/hazards: No pets and animals: Yes pets and animals: dog(s) and farm animals history of recent travel: No sexually active: No Smoking Status: Never smoker second hand exposure: No alcohol intake: never substance use type: does not use well-balanced diet: daily or most days caffeine: No eating out: rarely or never during the past year weight has: remained stable what type of physical activity do you participate in: walking frequency: 5-6 times per week duration: 45-60 minutes/day milady/congregational: [facility] seatbelt use: sometimes do you feel safe at home: Yes additional social history: : Reynaldo Burger - Farm History 6 Elective abortions Hx Para 5 Spontaneous abortions 0 Hx # Term Pregnancies 5 Ectopic pregnancies Hx # Pregnancies Multiple births # of living children 5 Past Pregnancies Del. Date Name GA/Weeks Outcome Route Bth Weight Gen Labor Lgth Anesthesia Del Locatn Provider FOB 10/03/12 Leslie 40 live - full term 8lbs 6oz Male no ne Home Reynaldo Burger 12/20/13 Sarah 40 live - full term 7lbs 7oz Female none Home Reynaldo Burger 12/15/16 Dominic 40 live - full term 8lbs 8oz [facility] 11/02/19 Elizabeth 40 live - full term 7lbs 7oz Female none [facility] Reynaldo Burger 04/04/22 Sade 40 live - full term 7lbs 14oz Female none Home Reynaldo Burger Delivery Date: 11/02/19 Last Updated by: Sandra Sorensen, certified veterinary technician instructed her to watch her BS Visit Details Expected Delivery Route/Plan Labor Preferences- CB/BF classes: [] labor support person: [] labor intervention preferences: [] pain management options preferred: [] cut cord/dad catch: [] : [] PP control planned: [] discussed possible routes of delivery and associated risks: [] special requests: [] Plans Covid status: [] Flu vaccine: [] Tdap vaccine: [] Rhogam: [] LARC form signed: [] Problem list reviewed and updated with the most current plan of care details and appropriate orders placed. Relevant counseling for the gestational age provided. Continue routine care and follow up unless otherwise noted in visit notes/problem list details OB Flowsheet Initial Weight: Not Recorded Date -?-?-?-?-?-?-?-?-?-?-?-?- EGA Weight BP Urine Prot -?-?-?-?-?-?-?-?-?-?-?-?- Glucose FHR FuHt Pres Dilation -?-?-?-?-?-?-?-?-?-?-?-?- Effaced St Visit Note 03/22/25 -?-?-?-?-?-?-?-?-?-?-?-?- 33w 0d 153 lb 4 oz 115/69 Nega tive -?-?-?-?-?-?-?-?-?-?-?-?- Negative 140 36 -?-?-?-?-?-?-?-?-?-?-?-?- KW- Transfer of care from Malena Wiley. Growth US done and EFW 100%. Had regular menses and was certain of LMP-did not have an early US. NOB labs today. KW- Transfer of care from Nkechi Wiley. Growth US done and EFW 100%. Had regular menses and was certain of LMP-did not have an early US. NOB labs today. Has been tracking BS for last 2 months and has had elevated numbers. Declining glucose testing and will continue to monitor for another week with new monitor (BS are well controlled with new readings) Discussed needing possible medications if elevated numbers. GDM vs wrong dates. 04/01/25 -?-?-?-?-?-?-?-?-?-?-?-?- 34w 3d 149 lb 2 oz 123/71 Nega tive -?-?-?-?-?-?-?-?-?-?-?-?- Negative 145 36 -?-?-?-?-?-?-?-?-?-?-?-?- SM- no vb lof go od fm no regular ctx 04/07/25 -?-?-?-?-?-?-?-?-?-?-?-?- 35w 2d 149 lb 4 oz 115/66 Nega tive -?-?-?-?-?-?-?-?-?-?-?-?- Negative 140 -?-?-?-?-?-?-?-?-?-?-?-?- MH-NST only reac tive 04/13/25 -?-?-?-?-?-?-?-?-?-?-?-?- 36w 1d 147 lb 6 oz 107/65 Nega tive -?-?-?-?-?-?-?-?-?-?-?-?- Negative 140 37 Cephalic 2 .5 -?-?-?-?-?-?-?-?-?-?-?-?- 70 -2 JV- nst re active. Fasting glucose levels still elevated. patient states she is eating no carbs and walking often. will start 500 bid metformin. She states that she is grateful for the medication because she feels like she is starving. GBS today. formal scan resutls pending. WEI 21. AC 92nd% EFW at 3 9weeks will be 8-9 pounds JV- nst reactive. Fasting gl ucose levels still elevated. patient states she is eating no carbs and walking often. will start 500 bid metformin. She states that she is grateful for the medication because she feels like she is starving. GBS today. formal scan resutls pending. WEI 21. AC 92nd% EFW at 3 9weeks will be 8-9 pounds. explained that will need twice weekly nsts but does not want to do that. She will keep friday's appt and we will discuss more. she may delivery soon as is already gomez and is 2-3 cm dilated. 04/22/25 -?-?-?-?-?-?-?-?-?-?-?-?- 37w 3d 149 lb 2 oz 123/67 Nega tive -?-?-?-?-?-?-?-?-?-?-?-?- Negative 135 37 Cephalic -?-?--?-?-?-?-?-?-?-?-?-?- KW- No vb/lof/ct x. good fm. NST reactive. growth US reviewed. blood sugars reviewed and fastings look better. all under 95/120. IOL set up for 05/03. will need orders sent next visit based on SVE. 04/27/25 -?-?-?-?-?-?-?-?-?-?-?-?- 38w 1d 147 lb 6 oz 116/68 Nega tive -?-?-?-?-?-?-?-?-?-?-?-?- Negative 135 Cephalic 3.5 -?-?-?-?-?-?-?-?-?-?-?-?- 70 -1 SM- no vb lof good fm no regular ctx NST FHR Rate Baby A Baseline: 140 Variability:: Moderate Accelerations:: 15 x 15 Decelerations:: None NST Reactive:: Yes FHR Category:: Category I Uterine Activity:: q3-5 ROS Constitutional Constitutional: Reports systems reviewed and no addt'l complaints, except as documented ENT HEENT: Reports systems reviewed and no addt'l complaints, except as documented Cardiovascular Cardiovascular: Reports systems reviewed and no addt'l complaints, except as documented Respiratory/Chest Respiratory/Chest: Reports systems reviewed and no addt'l complaints, except as documented Gastrointestinal Gastrointestinal: Reports systems reviewed and no addt'l complaints, except as documented and nausea; Denies abdominal pain Genitourinary Genitourinary: Reports systems reviewed and no addt'l complaints, except as documented, contractions Details: present and frequency (regular ) and movement Details: present Musculoskeletal Musculoskeletal: Reports systems reviewed and no addt'l complaints, except as documented Integumentary Integumentary: Reports as per HPI Neurologic Neurologic: Reports systems reviewed and no addt'l complaints, except as documented Endocrine Endocrinology: Reports systems reviewed and no addt'l complaints, except as documented Vital Signs Vital Signs Vital Signs: 04/28/25 01:24 04/28/25 01:24 04/28/25 01:25 Pulse Rate 57 L Blood Pressure 130/69 H BP Systolic 130 BP Diastolic 69 Pulse Ox 98 04/28/25 01:25 04/28/25 01:29 04/28/25 01:29 Pulse Rate 56 L 62 Blood Pressure BP Systolic BP Diastolic Pulse Ox 100 04/28/25 01:34 04/28/25 01:34 04/28/25 01:39 Pulse Rate 60 71 Blood Pressure BP Systolic BP Diastolic Pulse Ox 99 04/28/25 01:39 04/28/25 01:44 04/28/25 01:44 Pulse Rate 52 L Blood Pressure BP Systolic BP Diastolic Pulse Ox 96 100 04/28/25 01:45 04/28/25 01:45 04/28/25 01:48 Pulse Rate 55 L Blood Pressure 131/73 H BP Systolic 131 BP Diastolic 73 Pulse Ox 94 04/28/25 01:48 04/28/25 01:49 04/28/25 01:49 Pulse Rate 57 L 58 L Blood Pressure BP Systolic BP Diastolic Pulse Ox 99 04/28/25 01:51 04/28/25 01:51 04/28/25 01:53 Pulse Rate 81 Blood Pressure 129/69 H BP Systolic 129 BP Diastolic 69 Pulse Ox 92 04/28/25 01:53 04/28/25 01:54 04/28/25 01:54 Pulse Rate 58 L 72 Blood Pressure BP Systolic BP Diastolic Pulse Ox 98 04/28/25 01:59 04/28/25 01:59 04/28/25 02:03 Pulse Rate 61 Blood Pressure 122/67 H BP Systolic 122 BP Diastolic 67 Pulse Ox 100 04/28/25 02:03 04/28/25 02:04 04/28/25 02:04 Pulse Rate 61 62 Blood Pressure BP Systolic BP Diastolic Pulse Ox 98 04/28/25 02:06 04/28/25 02:06 04/28/25 02:09 Pulse Rate 65 Blood Pressure 133/75 H BP Systolic 133 BP Diastolic 75 Pulse Ox 88 04/28/25 02:09 04/28/25 02:09 04/28/25 02:14 Pulse Rate 67 Blood Pressure 128/60 H BP Systolic 128 BP Diastolic 60 Pulse Ox 100 04/28/25 02:14 04/28/25 02:14 04/28/25 02:14 Pulse Rate 60 65 Blood Pressure BP Systolic BP Diastolic Pulse Ox 86 04/28/25 02:18 04/28/25 02:18 04/28/25 02:19 Pulse Rate 59 L 66 Blood Pressure 124/58 H BP Systolic 124 BP Diastolic 58 Pulse Ox 04/28/25 02:19 04/28/25 02:23 04/28/25 02:23 Pulse Rate 66 Blood Pressure 117/56 L BP Systolic 117 BP Diastolic 56 Pulse Ox 84 04/28/25 02:24 04/28/25 02:24 04/28/25 02:28 Pulse Rate 73 Blood Pressure 106/53 L BP Systolic 106 BP Diastolic 53 Pulse Ox 100 04/28/25 02:28 04/28/25 02:29 04/28/25 02:29 Pulse Rate 66 66 Blood Pressure BP Systolic BP Diastolic Pulse Ox 100 Weight Weight: 148 lb Body Mass Index (BMI) 26.2 Physical Exam Const alert, oriented x3 and healthy appearing Constitutional Narrative: uncomfortable with contractions HEENT normocephalic and moist oral mucous membranes Head and Scalp: atraumatic Neck full ROM, no lymphadenopathy, supple and thyroid normal General: trachea midline Thyroid: thyroid normal Lymph Lymphatic: no lymphadenopathy noted Chest inspection of chest normal Resp normal respiratory effort Cardio regular rate GI soft to palpation and non-tender GI Narrative: gravid Inspection: gravid external exam normal Bimanual Exam - Vag & Uterus: uterus non-tender Manual OB Exam: estimated gestational size appropriate, presentation cephalic, dilated, effaced and station Extremity normal to inspection General Extremity: Negative for edema Skin no rashes or lesions noted Neuro deep tendon reflexes 2+ bilaterally Motor Exam: strength 5/5 throughout and clonus absent Psych mental status grossly normal Labs Labs Labs: Blood Type O POSITIVE Antibody Screen NEGATIVE Hct 39.2 % (37-47) Hgb 13.7 g/dL (12.0-15.0) Obstetrics Ultrasound Syphilis Total Ab Nonreactive (Nonreactive) Rubella IgG Antibody REAC (Nonreactive) Hep Bs Antigen Nonreactive (Nonreactive) Hepatitis C Antibody Nonreactive (Nonreactive) HIV 1&2 Antibody Nonreactive (Nonreactive) Assessment & Plan (1) Gestational diabetes mellitus (GDM): QUALIFIERS: Gestational diabetes mellitus control: diet-controlled Trimester: third trimester Qualified Code(s): O24.410 - Gestational diabetes mellitus in , diet controlled COMMENT: diet controlled. continue to monitor growth US 36 weeks. metformin started 04/13/25- patient declines to come in twice a week for nsts. will do only once a week (2) Polyhydramnios affecting : COMMENT: WEI 25 weekly nsts until delivery, deliver 39 weeks (3) LGA (large for gestational age) fetus: COMMENT: EFW 98%, AC 100% 32 wk (4) Hx gestational diabetes: (5) Supervision of normal : QUALIFIERS: Normal : other normal Trimester: third trimester Qualified Code(s): Z34.83 - Encounter for supervision of other normal , third trimester COMMENT: Neg gbs PRR (waiting on gcc) , CALEB 05/10/25, PC: Sarah Sal Andrea, Emily & Sade, : Reynaldo Burger (6) : QUALIFIERS: Weeks of gestation: 38 weeks Qualified Code(s): Z3A.38 - 38 weeks gestation of COMMENT: [Co-Care w/Malena Wiley, RON @ 31wks] No genetic/carrier testing done PLAN: Plan admit IAL
--- NOTE | 2025-04-28 02:32 | OB.VAGDELI_ITS ---
Assessment & Plan (1) Gestational diabetes mellitus (GDM): QUALIFIERS: Gestational diabetes mellitus control: diet-controlled Trimester: third trimester Qualified Code(s): O24.410 - Gestational diabetes mellitus in , diet controlled COMMENT: diet controlled. continue to monitor growth US 36 weeks. metformin started 04/13/25- patient declines to come in twice a week for nsts. will do only once a week (2) Polyhydramnios affecting : COMMENT: WEI 25 weekly nsts until delivery, deliver 39 weeks (3) LGA (large for gestational age) fetus: COMMENT: EFW 98%, AC 100% 32 wk (4) Hx gestational diabetes: (5) Supervision of normal : QUALIFIERS: Normal : other normal Trimester: third trimester Qualified Code(s): Z34.83 - Encounter for supervision of other normal , third trimester COMMENT: Neg gbs PRR (waiting on gcc) , CALEB 05/10/25, PC: Sarah Sal Andrea, Emily & Sade, : Reynaldo Burger (6) : QUALIFIERS: Weeks of gestation: 38 weeks Qualified Code(s): Z3A.38 - 38 weeks gestation of COMMENT: [Co-Care w/Malena Wiley, RON @ 31wks] No genetic/carrier testing done (7) Vaginal delivery: COMMENT: SM IAL boy ramya 38 gdm Maternal Data Information CALEB Calculator Estimated Delivery Date Method Current WG Current Estimate 05/10/25 LMP (Certain) 38w 2d Other Estimates 05/10/25 Manual 38w 2d Vaginal Delivery Maternal Presentation Maternal Presentation: see assessment and plan Vaginal Delivery Information Procedure Performed: Spontaneous Vaginal Delivery Surgeon/Practitioner: Rhonda Fleming Date of Procedure: 04/28/25 Pre-Procedure Diagnosis: see assessment and plan Post-Procedure Diagnosis: same Type of anesthesia: Epidural Estimated Blood Loss: 100 Findings Description of procedure: Patient began pushing and delivered the head in the SELENA presentation. The head was delivered atraumatically. The anterior and posterior shoulders delivered without complication followed by the rest of the and the infant was placed on the maternal abdomen. Delayed cord clamping was employed for approximately 60 seconds. Cord was clamped and cut and gentle traction was applied to the cord and the placenta delivered spontaneously immediately following it was noted to be intact with three-vessel cord. The perineum and vagina were inspected and noted to have no laceration. EBL was 100 cc. Patient and tolerated delivery well. Presentation: Vertex Placental Delivery Description: Spontaneous Specimen collected: Yes Description of specimen(s) removed: placenta Pumping Station Supervisor associate material handler: No Post Vaginal Deli Medications given after delivery: Other (pitocin) Complication Complications: No Multi Select Codes Urinary/Genital Urinary/Genital CPT Codes: 33133 Vaginal Delivery [facility]
--- NOTE | 2025-04-28 02:38 | DCINST_ITS ---
Discharge Instructions DC O2, CPAP, BIPAP needs Home O2 Discharge instructions: No Dressing / Incision Discharge Activity: Return to Normal Activity, May Not Drive (while taking narcotic pain medications.) and May Shower May resume sexual activity in: 4-6 weeks Dressing / Incision Call your doctor if your incision/area has: Continuous Slow Oozing, Sudden Increased Bleeding, Increased Pain/ Swelling, Increased Redness and Foul Smelling Discharge Follow Up Care Please Follow Up With: Rhonda Fleming MD When: Call [phone] to make an appointment with your doctor in 6 weeks. If you had elevated blood pressure or 4th degree laceration, you will need to be seen in 2 weeks. Test Results: Test results from this visit will be discussed in further detail at your follow- up appointment, if applicable. Discharge Plan Admission Admit Date/Time: 04/28/25 01:26 Attending Provider: Rhonda Fleming Primary Care Provider: Care PhysicianLacy Primary Discharge Orders/Prescriptions Prescriptions: No Action DHA 200 mg capsule PO DAILY ferrous sulfate [Feosol] 325 mg (65 mg iron) tablet 325 mg PO QDAY metformin 500 mg tablet 500 mg PO BID Qty: 60 2RF Referrals / Follow Up: Care Physician,No Primary [Primary Care Provider] -
[2025-04-28] MEDS: Oxytocin 15 Units/NS 250ml 15 UNITS/250 ML IV.SOLN 83 UNITS IV (03:00)
[2025-04-28] MEDS: 0.9% Saline Lock 10 ML Syringe IV (06:14)
[2025-04-28] MEDS: Senna/Docusate Sodium 1 Tablet PO (20:45)
[2025-04-29 04:53] VITALS: BP 98/52; PULSE 61; RESP 16; TEMP 36.7; O2SAT 99
[2025-04-29 04:54] VITALS: BP 98/52; PULSE 53
[2025-04-29 07:26] VITALS: BP 107/60; PULSE 51; PULSE 57; RESP 16; TEMP 36.6
[2025-04-29 12:03] VITALS: BP 119/67; PULSE 55
[2025-04-29 12:04] VITALS: BP 119/67; PULSE 55; RESP 16
--- NOTE | 2025-04-29 17:19 | PCM.PN.OB ---
Subjective Subjective Patient doing well without complaints. Tolerating PO. Ambulating and voiding without difficulty. feeding well. Denies chest pain, shortness of breath, calf pain/swelling, fevers, chills, lightheadedness. Objective Data Objective Data Vital Signs: Vital Signs Temp Pulse Resp BP Pulse Ox O2 Del Method 98 F 55 L 16 119/67 99 Room Air 04/29/25 07:26 04/29/25 12:04 04/29/25 12:04 04/29/25 12:04 04/29/25 04:53 04/29/25 07:26 Oxygen Delivery Method Room Air Weight: 148 lb Body Mass Index (BMI) 26.2 Intake & Output: Intake and Output for Last 24 Hours 04/27/25 04/28/25 04/29/25 23:59 23:59 23:59 Intake Total 1455.94 / 1455.94 Output Total 750 / 750 Balance 705.94 / 705.94 Lab / Micro Data 04/28/25 01:15 Micro: Microbiology 04/28/25 10:15 Urine, Clean Catch Chlamydia/Neisseria (PCR) - Final ROS Constitutional Constitutional: Reports systems reviewed and no addt'l complaints, except as documented Cardiovascular Cardiovascular: Reports systems reviewed and no addt'l complaints, except as documented Respiratory/Chest Respiratory/Chest: Reports systems reviewed and no addt'l complaints, except as documented Gastrointestinal Gastrointestinal: Reports systems reviewed and no addt'l complaints, except as documented Physical Exam Const alert, oriented x3 and no apparent distress HEENT Head and Scalp: atraumatic Resp normal respiratory effort GI soft to palpation and non-tender Bimanual Exam - Vag & Uterus: uterus non-tender Uterus Palpation: uterus fundus firm (below Umbilicus) Assessment & Plan (1) Vaginal delivery: COMMENT: SM IAL boy ramya 38 gdm PLAN: Plan s/p PPD # 1 1. routine post delivery care 2. breast feeding- support given 3. rh positive 4. rubella immune
== END 2025-04-29 13:27 | disposition home or self-care (01) | DRG 807 ==
LOC: WP 02:22
PROVIDERS: Admitting Provider Obstetrics & Gynecology; Visit Provider Obstetrics & Gynecology
DX: O24.425 Gestational diabetes mellitus in childbirth, controlled by oral hypoglycemic drugs (principal); Z37.0 Single live birth; O36.63X0 Maternal care for excessive fetal growth, third trimester, not applicable or unspecified; Z3A.38 38 weeks gestation of pregnancy
CPT/HCPCS: 59025; 59050; 82962; 85025; 86780; 86850; 86900; 86901; 87491; 87591; 99221; A4216; G0378